=== PATIENT | male | born 1940 | race Caucasian/White ===

== ENCOUNTER 2017-11-03 08:46 | Day surgery (SDC) | payer OTHER ==
--- OUTSIDE RECORDS SUMMARY | 2017-11-03 08:49 | XMS REPORT | Clinical Summary ---
:1940 Author Organization [facility] Address [address] [place] [address] Phone Care Team Providers Name Role Phone Unavailable Primary Care Provider Unavailable Allergies No Known Allergies Current Medications Prescription Sig. Disp. Refills Start Date End Date Status carvedilol (COREG) Take 12.5 mg by Active 12.5 MG tablet mouth 2 (two) times daily with breakfast and dinner. lisinopril Take 10 mg by Active (PRINIVIL,ZESTRIL) mouth daily. 10 MG tablet SITagliptin Take 100 mg by Active (JANUVIA) 25 MG mouth daily . tablet aspirin 81 MG EC Take 81 mg by Active tablet mouth daily. glimepiride (AMARYL) Take 2 mg by Active 2 MG tablet mouth 2 (two) times daily. spironolactone Take 25 mg by Active (ALDACTONE) 25 MG mouth daily tablet Tuesday- Tuesday and tuesday . canagliflozin Take 100 mg by Active (INVOKANA) 100 mg mouth daily. tablet mesalamine (PENTASA) Take 500 mg by Active 250 mg CR mouth 4 (four) capsuleIndications: times daily Crohn's Disease Repaced by Babalazide [address] 0.4 mg Active (NITROSTAT) 0.4 MG under the SL tablet tongue every 5 (five) minutes as needed for Chest pain (chest pain) Put 1 pill under tongue every 5min as needed for chest pain.No more than 3 doses in 15min.Call 911 if pain is unrelieved 5min after 1st dose . balsalazide Take 1,500 mg Active (COLAZAL) 750 mg by mouth 2 capsule (two) times daily. colestipol Take 2 g by Active (COLESTID) 5 gram mouth 2 (two) granules times daily. allopurinol Take 1 tablet 30 tablet 11 09/14/2017 Active (ZYLOPRIM) 300 MG (300 mg total) 9 tablet by mouth daily. amiodarone Take 1 tablet 60 tablet 11 09/13/2017 Active (PACERONE) 400 MG (400 mg total) 9 tablet by mouth 2 (two) times daily. atorvastatin Take 1 tablet 30 tablet 11 09/13/2017 Active (LIPITOR) 20 MG (20 mg total) 9 tablet by mouth nightly. famotidine (PEPCID) Take 1 tablet 60 tablet 0 09/13/2017 Active 20 MG tablet (20 mg total) by mouth 2 (two) times daily. furosemide (LASIX) Take 1 tablet 60 tablet 11 09/13/2017 Active 40 MG tablet (40 mg total) 9 by mouth 2 (two) times daily. furosemide (LASIX) Take 20 mg by Discontinued 20 MG tablet mouth 2 (two) 8 times daily. isosorbide Take 1 tablet 60 tablet 11 09/13/2017 Discontinued mononitrate (10 mg total) 8 (ISMO,MONOKET) 10 MG by mouth 2 tablet (two) times daily. 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 (HCC) 09/09/2017 Orders Only General Internal Medicine after 11/02/2016 Social History Tobacco Use Types Packs/Day Years Used Date Never Smoker Smokeless Tobacco: Never Used Alcohol Use Drinks/Week oz/Week Comments No Sex Assigned at Date Recorded Not on file Last Filed Vital Signs Vital Sign Reading Time Taken Blood Pressure 109/61 09/14/2017 10:22 AM ESCALATOR MECHANIC Pulse 56 09/14/2017 7:30 AM ESCALATOR MECHANIC Temperature 36.4 C (97.6 F) 09/14/2017 7:30 AM ESCALATOR MECHANIC Respiratory Rate 18 09/14/2017 7:30 AM ESCALATOR MECHANIC Oxygen Saturation 96% 09/14/2017 7:30 AM ESCALATOR MECHANIC Inhaled Oxygen Concentration - - Weight 90.7 kg (200 lb) 09/14/2017 7:30 AM ESCALATOR MECHANIC Height 182.9 cm (6') 09/09/2017 9:43 PM ESCALATOR MECHANIC Body Mass Index 27.12 09/14/2017 7:30 AM ESCALATOR MECHANIC Plan of Treatment Not on file Procedures Procedure Name Priority Date/Time Associated Diagnosis Comments L CATH & PCI 09/12/2017 2:42 PM ESCALATOR MECHANIC chest pain after 11/02/2016 Results RHYTHM STRIP - SCAN (10/18/2017 10:53 AM)Only the most recent of2 resultswithin the time period is included.CARDIAC CATH REPORT - SCAN (09/15/2017 3:40 PM) ARRYTHMIA IMPLANT REPORT - SCAN (09/15/2017 1:40 PM)Only the most recent of2 resultswithin the time period is included.VASCULAR DIAGRAM -SCAN (09/15/2017 1: 40 PM)POC-Glucose meter (09/14/2017 7:32 AM)Only the most recent of14 resultswithin the time period is included. Component Value Ref Range POC-Glucose Meter 214 (H)Comment: TESTED AT [address] 70 - 110 mg/[place] [address] Specimen Performing Laboratory Blood [facility] [address] [address] XR chest 1 view portable / bedside (09/14/2017 4:45 AM)Only the most recent of3 resultswithin the time period is included. Specimen Performing Laboratory GE RIS Narrative FINAL REPORT Portable chest CLINICAL HISTORY: Short of breath Comparison:09/13/2017. FINDINGS:The cardiac silhouette is enlarged.The patient is status post sternotomy. A pacer device is seen. There are mild interstitial markings but no definite focal opacity, pleural effusion or pneumothorax. Degenerative changes are noted. IMPRESSION: No significant change. Signed: Gonzalo Rose MD Report Verified Date/Time:09/14/2017 09:52:44 Reading Location: [facility] Diagnostic Imaging Reading Room - [place] [address] Procedure Note Interface, External Ris In - 09/14/2017 9:54 AM ESCALATOR MECHANIC FINAL REPORT Portable chest CLINICAL HISTORY: Short of breath Comparison: 09/13/2017. FINDINGS: The cardiac silhouette is enlarged. The patient is status post sternotomy. A pacer device is seen. There are mild interstitial markings but no definite focal opacity, pleural effusion or pneumothorax. Degenerative changes are noted. IMPRESSION: No significant change. Signed: Gonzalo Rose MD Report Verified Date/Time: 09/14/2017 09:52:44 Reading Location: [facility] Diagnostic Imaging Reading Room - [place] [address] with platelet count + automated diff (09/14/2017 4:41 AM)Only the most recent of6 resultswithin the time period is included. Component Value Ref Range WBC 4.7 3.5 - 10.5 K/L RBC 4.57 (L) 4.63 - 6.08 M/L Hemoglobin 14.2 13.7 - 17.5 GM/DL Hematocrit 42.3 40.1 - 51.0 % MCV 92.6 (H) 79.0 - 92.2 fL MCH 31.1 25.7 - 32.2 pg MCHC 33.6 32.3 - 36.5 GM/DL RDW 15.3 (H) 11.6 - 14.4 % Platelets 126 (L) 150 - 450 K/CU MM MPV 10.5 9.4 - 12.4 fL nRBC 0 0 - 0 /100 WBC % Neutros 61 % % Lymphs 26 % % Monos 10 % % Eos 2 % % Baso 1 % # Neutros 2.83 1.78 - 5.38 K/L # Lymphs 1.24 (L) 1.32 - 3.57 K/L # Monos 0.48 0.30 - 0.82 K/L # Eos 0.10 0.04 - 0.54 K/L # Baso 0.03 0.01 - 0.08 K/L Immature Granulocytes-Relative 0 0 - 1 % Specimen Performing Laboratory Blood [facility] [address] [place] [address] CBC with platelet count + automated diff (09/14/2017 4:41 AM)Only the most recent of6 resultswithin the time period is included. Specimen Performing Laboratory Blood Narrative The following orders were created for panel order CBC with platelet count + automated diff. Procedure Abnormality Status --------- ------ CBC with platelet count ...[[id number]]AbnormalFinal result Please view results for these tests on the individual orders. Magnesium (09/14/2017 4:41 AM)Only the most recent of7 resultswithin the time period is included. Component Value Ref Range Magnesium 1.9 1.6 - 2.6 mg/dL Specimen Performing Laboratory Blood [address] [address] Basic metabolic panel (09/14/2017 4:41 AM)Only the most recent of7 resultswithin the time period is included. Component Value Ref Range Sodium 137 136 - 145 meq/L Potassium 4.3 3.5 - 5.1 meq/L Chloride 101 98 - 107 meq/L CO2 25 22 - 29 meq/L BUN 31 (H) 7 - 21 mg/dL Creatinine 1.13 0.57 - 1.25 mg/dL Glucose 180 (H) 70 - 105 mg/dL Calcium 9.9 8.4 - 10.2 mg/dL EGFR 63Comment: ESTIMATED GFR IS NOT ACCURATE mL/min/1.73 sq m CREATININE CLEARANCE IN PREDICTING GLOMERULAR FILTRATION RATE. ESTIMATED GFR IS NOT APPLICABLE FOR DIALYSIS PATIENTS. Specimen Performing Laboratory Blood [address] [address] ECHOCARDIOGRAM REPORT - SCAN (09/12/2017 1:20 PM)aPTT (09/11/2017 3:35 AM) Component Value Ref Range PTT 26.5 22.5 - 36.0 seconds Specimen Performing Laboratory Blood - Arm, [address] [address] Prothrombin time/INR (09/11/2017 3:35 AM) Component Value Ref Range Protime 14.4 11.7 - 14.7 seconds INR 1.1 <=5.9 Specimen Performing Laboratory Blood - Arm, Right [address] [address] Narrative RECOMMENDED COUMADIN/WARFARIN INR THERAPY RANGES STANDARD DOSE: 2.0 - 3.0 Includes: PROPHYLAXIS for venous thrombosis, systemic embolization; TREATMENT for venous thrombosis and/or pulmonary embolus. HIGH RISK: Target INR is 2.5-3.5 for patients with mechanical heart valves. Troponin I (09/10/2017 4:28 PM)Only the most recent of4 resultswithin the time period is included. Component Value Ref Range Troponin I 0.03 0.00 - 0.03 ng/mL Specimen Performing Laboratory Blood [address] [address] Narrative Troponin I (TnI) levels must be interpreted in the context of the presenting symptoms and the clinical findings. Elevated TnI levels indicate myocardial damage, but are not specific for ischemic heart disease. Elevated TnI levels are seen in patients with other cardiac conditions (including myocarditis and congestive heart failure), and slight TnI elevations occur in patients with other conditions, including sepsis, renal failure, acidosis, acute neurological disease, and persistent tachyarrhythmia. Creatine Kinase (CK), Total and MB (09/10/2017 4:28 PM)Only the most recent of4 resultswithin the time period is included. Component Value Ref Range Total CK 105 29 - 200 U/L CK-MB 2.6 0.0 - 6.6 ng/mL MB Relative Index 2.5 % Specimen Performing Laboratory Blood [address] [address] Narrative CK-MB Reference Range: <6.7Normal 6.7-10.0Borderline >10.0 Abnormal Urinalysis w/ Microscopic (09/10/2017 4:27 PM)Only the most recent of2 resultswithin the time period is included. Component Value Ref Range Color, UA Light Yellow Clarity, UA Clear Specific [place], UA 1.009 1.001 - 1.035 pH, UA 5.0 5.0 - 8.0 Protein, UA Negative Negative Glucose, UA >1000 mg/dL (A) Negative Ketones, UA Negative Negative Bilirubin, UA Negative Negative Blood, UA Negative Negative Nitrite, UA Negative Negative Leukocytes, UA Negative Negative Urobilinogen, UA 0.2 0.2 - 1.0 mg/dL RBC, UA 1 /HPF WBC, UA <1 /HPF Hyaline Casts, UA 2 /LPF Specimen Source Urine, Voided Specimen Performing Laboratory Urine - Urine, Voided [address] [address] B-type Natriuretic Factor (BNP) (09/10/2017 4:27 PM)Only the most recent of2 resultswithin the time period is included. Component Value Ref Range BNP 246 (H) 0 - 100 pg/mL Specimen Performing Laboratory Blood [address] [address] Transthoracic 2D echo w/ doppler (cw/pw/color) (09/10/2017 2:49 PM) Component Value Ref Range Ejection Fraction Specimen Performing Laboratory SLE ECHO HEARTLAB MKCKESSON CPACS Narrative Transthoracic Echocardiography Report (TTE) Demographics Patient Name TONY VERDUZCO Date of Study09/10/2017 [id number] Gender Male Visit Number [id number] Race Unknown [id number] Number [id number] Number Date of Birth1940 Referring PhysicianAnjana Schaffer Age77 year(s) SonographerLashae Keane AnalystAriadnaInterpreting Britt BasPhysiciolivia MESA Procedure Type of Study TTE procedure:2DECHO W DOPPLER(CW/PW/COLOR) (BRENDA) Indications:Sustained or non sustained Afib, SVT or VT. Clinical History CAD HTN DM VTACH HGB 14.1 HCT 43.3 % Height: 72 inches Weight: 90.72 kg (200 lbs) BSA: 2.13 m^2 BMI: 27.12 kg/m^2 HR: 63 bpm BP: 103/50 mmHg Summary The LV endocardium is adequately visualized. The left ventricle is chamber size (by vol index) is severely enlarged (male - LVED vol >100ml/m2). LV septal thickness is severely increased (>1.6cm). LV posterior wall thickness is mildly increased (1.2-1.4cm) . The following segment(s) appear severely hypokinetic: lateral, inferolateral and inferior . Global LV systolic function mildly reduced . LVEF by Morgan's method of disk assessment is mildly reduced (40-44%) . LV diastolic function is indeterminate. RV chamber size is normal . Global RV systolic function is normal . At least mild mitral regurgitation. MR severity is difficult to determine due to poor acoustic windows . Unable to estimate peak systolic PA pressure; inadequate TR velocity signal. No pericardial effusion is visualized. Signature Findings Technical Quality: Technically difficult exam. Left Ventricle The LV endocardium is adequately visualized. The left ventricle is chamber size (by vol index) is severely enlarged (male - LVED vol >100ml/m2). LV septal thickness is severely increased (>1.6cm). LV posterior wall thickness is mildly increased (1.2-1.4cm) . The following segment(s) appear severely hypokinetic: lateral, inferolateral and inferior . Global LV systolic function mildly reduced . LVEF by Morgan's method of disk assessment is mildly reduced ( 40-44%) . LV diastolic function is indeterminate. Left AtriumLA size is severely enlarged (>48 ml/m2 ) . Right VentricleRV chamber size is normal . Global RV systolic function is normal . Right Atrium RA size is normal. Atrial SeptumNormal interatrial septum by available views. Aortic Valve Mild AoV cusp thickening. Mild AoV cusp calcification. Mitral Valve Mild MV leaflet thickening. At least mild mitral regurgitation. MR severity is difficult to determine due to poor acoustic windows . The submitral apparatus appears mildly thickened . Tricuspid ValveNormal TV structure and function. Unable to estimate peak systolic PA pressure; inadequate TR velocity signal. Pulmonic Valve Normal PV structure and function. AortaAortic root size (SInus of Valsalva diameter) is mildly dilated . PericardiumNo pericardial effusion is visualized. IVC/SVC/PA/PV/PleuralThe inferior vena cava is not well visualized. The estimated RA pressure by IVC dynamics indeterminate . Chambers/Structures Left Atrium LA Dimension: 5.79 cmLA Area: 39.62 cm^2 LA Volume: 162.21 ml LA Vol. Index: 76 ml/m^2 Left Ventricle LVIDd: 6.26 cm LVIDs: 4.73 cm LV Septum Diastolic: 2.03 cm LV PW Diastolic: 1.42 cm LV FS: 24.4 % LVEDV Morgan's:231.55 ml LVESV Morgan's:132.78 mlLVEDVI: 109 ml/m^ 2 LVEF Morgan's: 42.7 % LVESVI: 62 ml/m ^2 LVOT Diameter: 2.35 cm Right Atrium RA Vol. (Sngl Plane): 42.35 ml Right Ventricle TAPSE: 1.65 cm Aorta Ao Root S of [place].: 3.57 cmAscending Aorta: 2.85 cm Doppler/Quantitative Measurements Mitral Valve MR Velocity: 5.31 m/s MR VTI: 177.42 cm MV Kevin. Peak: Tissue Doppler E' Lateral Velocity: 0.05 m/s LVOT Peak Velocity: 0.86 m/s Peak Gradient: 2.99 mmHg Mean Velocity: 0.56 m/s Mean Gradient: 1.51 mmHg LVOT Diameter: 2.35 cmLVOT VTI: 20.36 cm LVOT Area: 4.34 cm^2LVOT SV:88.26 ml LVOT CO: 5.56 l/min LVOT CI: 2.61 l/min/m^2 Procedure Note Interface, External Ris In - 09/12/2017 12:56 PM ESCALATOR MECHANIC Transthoracic Echocardiography Report (TTE) Demographics Patient Name TONY VERDUZCO Date of Study 09/10/2017 Gender Male Visit Number [id number] Race Unknown Room Number 7303 Number Date of 1940 Referring Physician Anjana Schaffer Age 77 year(s) Campaign Management Senior Manager Lashae Keane Programming Coordinator Maik Bishop Physician Procedure Type of Study TTE procedure:2DECHO W DOPPLER(CW/PW/COLOR) (BRENDA) Indications:Sustained or non sustained Afib, SVT or VT. Clinical History CAD HTN DM VTACH HGB 14.1 HCT 43.3 % Height: 72 inches Weight: 90.72 kg (200 lbs) BSA: 2.13 m^2 BMI: 27.12 kg/m^2 HR: 63 bpm BP: 103/50 mmHg Summary The LV endocardium is adequately visualized. The left ventricle is chamber size (by vol index) is severely enlarged (male - LVED vol >100ml/m2). LV septal thickness is severely increased (>1.6cm). LV posterior wall thickness is mildly increased (1.2-1.4cm) . The following segment(s) appear severely hypokinetic: lateral, inferolateral and inferior . Global LV systolic function mildly reduced . LVEF by Morgan's method of disk assessment is mildly reduced (40-44%) . LV diastolic function is indeterminate. RV chamber size is normal . Global RV systolic function is normal . At least mild mitral regurgitation. MR severity is difficult to determine due to poor acoustic windows . Unable to estimate peak systolic PA pressure; inadequate TR velocity signal. No pericardial effusion is visualized. Signature Findings Technical Quality: Technically difficult exam. Left Ventricle The LV endocardium is adequately visualized. The left ventricle is chamber size (by vol index) is severely enlarged (male - LVED vol >100ml/m2). LV septal thickness is severely increased (>1.6cm). LV posterior wall thickness is mildly increased (1.2-1.4cm) . The following segment(s) appear severely hypokinetic: lateral, inferolateral and inferior . Global LV systolic function mildly reduced . LVEF by Morgan's method of disk assessment is mildly reduced (40-44%) . LV diastolic function is indeterminate. Left Atrium LA size is severely enlarged (>48 ml/m2) . Right Ventricle RV chamber size is normal . Global RV systolic function is normal . Right Atrium RA size is normal. Atrial Septum Normal interatrial septum by available views. Aortic Valve Mild AoV cusp thickening. Mild AoV cusp calcification. Mitral Valve Mild MV leaflet thickening. At least mild mitral regurgitation. MR severity is difficult to determine due to poor acoustic windows . The submitral apparatus appears mildly thickened . Tricuspid Valve Normal TV structure and function. Unable to estimate peak systolic PA pressure; inadequate TR velocity signal. Pulmonic Valve Normal PV structure and function. Aorta Aortic root size (SInus of Valsalva diameter) is mildly dilated . Pericardium No pericardial effusion is visualized. IVC/SVC/PA/PV/Pleural The inferior vena cava is not well visualized. The estimated RA pressure by IVC dynamics indeterminate . Chambers/Structures Left Atrium LA Dimension: 5.79 cm LA Area: 39.62 cm^2 LA Volume: 162.21 ml LA Vol. Index: 76 ml/m^2 Left Ventricle LVIDd: 6.26 cm LVIDs: 4.73 cm LV Septum Diastolic: 2.03 cm LV PW Diastolic: 1.42 cm LV FS: 24.4 % LVEDV Morgan's:231.55 ml LVESV Morgan's:132.78 ml LVEDVI: 109 ml/m^2 LVEF Morgan's: 42.7 % LVESVI: 62 ml/m^2 LVOT Diameter: 2.35 cm Right Atrium RA Vol. (Sngl Plane): 42.35 ml Right Ventricle TAPSE: 1.65 cm Aorta Ao Root S of [place].: 3.57 cm Ascending Aorta: 2.85 cm Doppler/Quantitative Measurements Mitral Valve MR Velocity: 5.31 m/s MR VTI: 177.42 cm MV Kevin. Peak: Tissue Doppler E' Lateral Velocity: 0.05 m/s LVOT Peak Velocity: 0.86 m/s Peak Gradient: 2.99 mmHg Mean Velocity: 0.56 m/s Mean Gradient: 1.51 mmHg LVOT Diameter: 2.35 cm LVOT VTI: 20.36 cm LVOT Area: 4.34 cm^2 LVOT SV:88.26 ml LVOT CO: 5.56 l/min LVOT CI: 2.61 l/min/m^2 Hepatic function panel (09/10/2017 1:11 AM) Component Value Ref Range Protein, Total 6.3 6.0 - 8.3 gm/dL Albumin 3.9 3.5 - 5.0 g/dL Total Bilirubin 0.3 0.2 - 1.2 mg/dL Bilirubin, Direct 0.2 0.1 - 0.5 mg/dL Alkaline Phosphatase 51 40 - 150 U/L AST 17 5 - 34 U/L ALT 13 6 - 55 U/L Specimen Performing [place] [address] ED ECG Interpretation (09/09/2017 11:22 PM) Anjana Bell MD 09/09/2017 11:22 PM ECG/EKG Interpretation Date/Time: 09/09/2017 10:34 PM Performed by: ANJANA SCHAFFER Authorized by: ANJANA SCHAFFER The ECG was interpreted by ED physician. This ECG was compared with previous ECG(s).The ECG is interpreted as sinus bradycardia. Rate is bradycardic. Heart rate is 59 BPM. Abnormal conduction noted: right bundle branch block. ST segments abnormal. ST elevation in lead(s) aVR. T waves abnormal. [place] is right. Q-waves are present in lead(s) I, II, III and aVF. Clinical Impression: abnormal ECGECG reviewed and does not meet STEMI criteria. ECG 12 lead (09/09/2017 10:32 PM)Only the most recent of2 resultswithin the time period is included. Specimen Performing Laboratory [facility]USE Narrative Ventricular Rate 59 BPM Atrial Rate 59 BPM P-R Interval 174 ms QRS Duration 160 ms Q-T Interval 504 ms QTC Calculation(Bazett) 498 ms P [place] 11 degrees R [place] -20 degrees T [place] -3 degrees Sinus bradycardia Right bundle branch block Left ventricular hypertrophy with QRS widening Inferior infarct , age undetermined Anterolateral infarct , age undetermined Abnormal ECG No previous ECGs available Confirmed by MD SIAURA, JONAH Barron ([id number]) on 09/11/2017 7:34:21 AM Procedure Note Interface, External Ris In - 09/11/2017 7:34 AM ESCALATOR MECHANIC Ventricular Rate 59 BPM Atrial Rate 59 BPM P-R Interval 174 ms QRS Duration 160 ms Q-T Interval 504 ms QTC Calculation(Bazett) 498 ms P [place] 11 degrees R [place] -20 degrees T [place] -3 degrees Sinus bradycardia Right bundle branch block Left ventricular hypertrophy with QRS widening Inferior infarct , age undetermined Anterolateral infarct , age undetermined Abnormal ECG No previous ECGs available Confirmed by MD ISAURA, JONAH Barron ([id number]) on 09/11/2017 7:34:21 AM after 11/02/2016
--- OUTSIDE RECORDS SUMMARY | 2017-11-03 08:49 | XMS REPORT ---
:1940 Author Organization [facility] Address [address] [place] [address] Dr. Sanderson [address] [place] [id number] Care Team Providers Name Role Phone ZHENG BOSWELL Unavailable Unavailable Problems This patient has no known problems. Allergies, Adverse Reactions, Alerts This patient has no known allergies or adverse reactions. Medications This patient has no known medications. Results Test Description Test Time Test Comments Text Results Atomic Results Result Comments RAD, CHEST, 1 2017-09-14 09:52:00 Reason for FINAL REPORT PATIENT VIEW, NON DEPT exam:->SOBShould this be ID: [id number] performed at the Portable chest bedside?->Yes CLINICAL HISTORY: Short of breath Comparison: 09/13/2017. FINDINGS: The cardiac silhouette is enlarged. The patient is status post sternotomy. A pacer device is seen. There are mild interstitial markings but no definite focal opacity, pleural effusion or pneumothorax. Degenerative changes are noted. IMPRESSION: No significant change. Signed: Gonzalo Rose Verified Date/Time: 09/14/2017 09:52:44 Reading Location: [facility] Diagnostic Imaging Reading Room - [place] [address] -GLUCOSE METER 2017-09-14 07:56:00 Test Item Value Reference Range Comments POC-GLUCOSE METER (BEAKER) (test 214 mg/dL 70-110 TESTED AT [address] yunf=9558) [facility] [address] POCT-GLUCOSE [id number] 07:17:00 Test Item Value Reference Range Comments POC-GLUCOSE METER (BEAKER) 184 mg/dL 70-110 TESTED AT [address] (test nudu=8311) [facility] [address] [id number] 05:37:00 Test Item Value Reference Range Comments MAGNESIUM (BEAKER) (test weda=807) 1.9 mg/dL 1.6-2.6 BASIC METABOLIC [id number] 05:37:00 Test Item Value Reference Range Comments SODIUM (BEAKER) (test 137 meq/L 136-145 flzh=691) POTASSIUM (BEAKER) (test 4.3 meq/L 3.5-5.1 mcpl=494) CHLORIDE (BEAKER) (test 101 meq/L 98-107 zzno=189) CO2 (BEAKER) (test 25 meq/L 22-29 pvjp=176) BLOOD UREA NITROGEN 31 mg/dL 7-21 (BEAKER) (test nwtn=365) CREATININE (BEAKER) (test 1.13 mg/dL 0.57-1.25 webb=334) GLUCOSE RANDOM (BEAKER) 180 mg/dL 70-105 (test avrf=292) CALCIUM (BEAKER) (test 9.9 mg/dL 8.4-10.2 qnje=754) EGFR (BEAKER) (test 63 mL/min/1.73 sq m ESTIMATED GFR IS NOT zjdp=7896) ACCURATE CREATININE CLEARANCE IN PREDICTING GLOMERULAR FILTRATION RATE. ESTIMATED GFR IS NOT APPLICABLE FOR DIALYSIS PATIENTS. CBC W/PLT COUNT & AUTO [id number] 05:07:00 Test Item Value Reference Range Comments WHITE BLOOD CELL COUNT (BEAKER) (test oxtb=647) 4.7 K/ L 3.5-10.5 RED BLOOD CELL COUNT (BEAKER) (test jkrd=587) 4.57 M/ L 4.63-6.08 HEMOGLOBIN (BEAKER) (test kvpr=011) 14.2 GM/DL 13.7-17.5 HEMATOCRIT (BEAKER) (test pebp=027) 42.3 % 40.1-51.0 MEAN CORPUSCULAR VOLUME (BEAKER) (test kgse=668) 92.6 fL 79.0-92.2 MEAN CORPUSCULAR HEMOGLOBIN (BEAKER) (test 31.1 pg 25.7-32.2 pmds=652) MEAN CORPUSCULAR HEMOGLOBIN CONC (BEAKER) (test 33.6 GM/DL 32.3-36.5 osoe=997) RED CELL DISTRIBUTION WIDTH (BEAKER) (test 15.3 % 11.6-14.4 yyzi=454) PLATELET COUNT (BEAKER) (test ldhp=107) 126 K/CU MM 150-450 MEAN PLATELET VOLUME (BEAKER) (test hqmy=687) 10.5 fL 9.4-12.4 NUCLEATED RED BLOOD CELLS (BEAKER) (test 0 /100 WBC 0-0 foyw=752) NEUTROPHILS RELATIVE PERCENT (BEAKER) (test 61 % ecjx=384) LYMPHOCYTES RELATIVE PERCENT (BEAKER) (test 26 % futh=527) MONOCYTES RELATIVE PERCENT (BEAKER) (test 10 % dgcx=738) EOSINOPHILS RELATIVE PERCENT (BEAKER) (test 2 % nctf=676) BASOPHILS RELATIVE PERCENT (BEAKER) (test 1 % wfrk=359) NEUTROPHILS ABSOLUTE COUNT (BEAKER) (test 2.83 K/ L 1.78-5.38 sxrn=642) LYMPHOCYTES ABSOLUTE COUNT (BEAKER) (test 1.24 K/ L 1.32-3.57 iybr=216) MONOCYTES ABSOLUTE COUNT (BEAKER) (test 0.48 K/ L 0.30-0.82 vxgv=818) EOSINOPHILS ABSOLUTE COUNT (BEAKER) (test 0.10 K/ L 0.04-0.54 ffbn=184) BASOPHILS ABSOLUTE COUNT (BEAKER) (test 0.03 K/ L 0.01-0.08 mxib=542) IMMATURE GRANULOCYTES-RELATIVE PERCENT (BEAKER) 0 % 0-1 (test zrln=1973) POCT-GLUCOSE [id number] 18:32:00 Test Item Value Reference Range Comments POC-GLUCOSE METER (BEAKER) 230 mg/dL 70-110 TESTED AT [address] (test dhnp=5155) [place] [id number] POCT-GLUCOSE [id number] 16:39:00 Test Item Value Reference Range Comments POC-GLUCOSE METER (BEAKER) 254 mg/dL 70-110 TESTED AT [address] (test rlyr=7823) [facility] [address] POCT-GLUCOSE [id number] 12:51:00 Test Item Value Reference Range Comments POC-GLUCOSE METER (BEAKER) 326 mg/dL 70-110 TESTED AT [address] (test mfsk=1965) [facility] [address] RAD, CHEST, 1 VIEW, NON [id number] 09:57:00Reason for exam:->SOBShould this be performed at the bedside?->YesFINAL REPORT CLINICAL HISTORY: SOB TECHNIQUE: 1 view of the chest. COMPARISON: 09/09/2017 IMPRESSION: There are no focal infiltrates or effusions. The cardiomediastinal silhouetteis magnified by technique with sternotomy wires and a pacemaker. Signed: Daniel Lanza MDReport Verified Date/Time: 09/13/2017 09:57:46 Reading Location: [facility] Radiology Reading Room [id number] 04:43:00 Test Item Value Reference Range Comments MAGNESIUM (BEAKER) (test ryhg=519) 2.2 mg/dL 1.6-2.6 BASIC METABOLIC [id number] 04:43:00 Test Item Value Reference Range Comments SODIUM (BEAKER) (test 138 meq/L 136-145 kqny=878) POTASSIUM (BEAKER) (test 4.2 meq/L 3.5-5.1 pbgr=691) CHLORIDE (BEAKER) (test 102 meq/L 98-107 gncx=522) CO2 (BEAKER) (test 27 meq/L 22-29 cdpo=910) BLOOD UREA NITROGEN 25 mg/dL 7-21 (BEAKER) (test ydmg=191) CREATININE (BEAKER) (test 1.08 mg/dL 0.57-1.25 fmaq=189) GLUCOSE RANDOM (BEAKER) 169 mg/dL 70-105 (test hhvp=536) CALCIUM (BEAKER) (test 9.9 mg/dL 8.4-10.2 lnvr=076) EGFR (BEAKER) (test 66 mL/min/1.73 sq m ESTIMATED GFR IS NOT bcgl=3954) ACCURATE CREATININE CLEARANCE IN PREDICTING GLOMERULAR FILTRATION RATE. ESTIMATED GFR IS NOT APPLICABLE FOR DIALYSIS PATIENTS. CBC W/PLT COUNT & AUTO [id number] 04:23:00 Test Item Value Reference Range Comments WHITE BLOOD CELL COUNT (BEAKER) (test oyfm=421) 5.6 K/ L 3.5-10.5 RED BLOOD CELL COUNT (BEAKER) (test jamr=294) 4.81 M/ L 4.63-6.08 HEMOGLOBIN (BEAKER) (test zass=058) 14.9 GM/DL 13.7-17.5 HEMATOCRIT (BEAKER) (test lobu=126) 44.9 % 40.1-51.0 MEAN CORPUSCULAR VOLUME (BEAKER) (test xayk=939) 93.3 fL 79.0-92.2 MEAN CORPUSCULAR HEMOGLOBIN (BEAKER) (test 31.0 pg 25.7-32.2 yfzj=205) MEAN CORPUSCULAR HEMOGLOBIN CONC (BEAKER) (test 33.2 GM/DL 32.3-36.5 rkui=672) RED CELL DISTRIBUTION WIDTH (BEAKER) (test 15.3 % 11.6-14.4 jdcj=247) PLATELET COUNT (BEAKER) (test flet=704) 144 K/CU MM 150-450 MEAN PLATELET VOLUME (BEAKER) (test uehh=434) 10.7 fL 9.4-12.4 NUCLEATED RED BLOOD CELLS (BEAKER) (test 0 /100 WBC 0-0 jsaa=681) NEUTROPHILS RELATIVE PERCENT (BEAKER) (test 65 % adtb=055) LYMPHOCYTES RELATIVE PERCENT (BEAKER) (test 22 % gois=189) MONOCYTES RELATIVE PERCENT (BEAKER) (test 11 % gbcy=967) EOSINOPHILS RELATIVE PERCENT (BEAKER) (test 2 % joed=805) BASOPHILS RELATIVE PERCENT (BEAKER) (test 1 % qtvy=602) NEUTROPHILS ABSOLUTE COUNT (BEAKER) (test 3.63 K/ L 1.78-5.38 kyon=289) LYMPHOCYTES ABSOLUTE COUNT (BEAKER) (test 1.24 K/ L 1.32-3.57 hfgi=852) MONOCYTES ABSOLUTE COUNT (BEAKER) (test 0.61 K/ L 0.30-0.82 jdff=912) EOSINOPHILS ABSOLUTE COUNT (BEAKER) (test 0.10 K/ L 0.04-0.54 tilm=556) BASOPHILS ABSOLUTE COUNT (BEAKER) (test 0.03 K/ L 0.01-0.08 vuxr=618) IMMATURE GRANULOCYTES-RELATIVE PERCENT (BEAKER) 0 % 0-1 (test hwhp=2405) POCT-GLUCOSE [id number] 22:01:00 Test Item Value Reference Range Comments POC-GLUCOSE METER (BEAKER) 141 mg/dL 70-[address] [facility] [address] [facility] (test htqv=2846) [facility] [address] POCT-GLUCOSE [id number] 14:30:00 Test Item Value Reference Range Comments POC-GLUCOSE METER (BEAKER) 133 mg/dL 70-110 TESTED AT [place] [id number] [facility] (test tqah=4375) [facility] [address] POCT-GLUCOSE [id number] 08:06:00 Test Item Value Reference Range Comments POC-GLUCOSE METER (BEAKER) 175 mg/dL 70-110 TESTED AT [place] [id number] [facility] (test jrsv=5675) [facility] [address] [id number] 06:06:00 Test Item Value Reference Range Comments MAGNESIUM (BEAKER) (test 2.1 mg/dL 1.6-2.6 Specimen slightly hemolyzed pgin=553) BASIC METABOLIC [id number] 06:06:00 Test Item Value Reference Range Comments SODIUM (BEAKER) (test 135 meq/L 136-145 ajou=814) POTASSIUM (BEAKER) (test 4.3 meq/L 3.5-5.1 Specimen slightly iciy=221) hemolyzed CHLORIDE (BEAKER) (test 103 meq/L 98-107 pfhh=016) CO2 (BEAKER) (test 22 meq/L 22-29 nldi=509) BLOOD UREA NITROGEN 33 mg/dL 7-21 (BEAKER) (test inyq=367) CREATININE (BEAKER) (test 1.11 mg/dL 0.57-1.25 Specimen slightly huwq=185) hemolyzed GLUCOSE RANDOM (BEAKER) 156 mg/dL 70-105 (test pkpf=702) CALCIUM (BEAKER) (test 9.9 mg/dL 8.4-10.2 vjxn=003) EGFR (BEAKER) (test 64 mL/min/1.73 sq m ESTIMATED GFR IS NOT hpde=0522) ACCURATE CREATININE CLEARANCE IN PREDICTING GLOMERULAR FILTRATION RATE. ESTIMATED GFR IS NOT APPLICABLE FOR DIALYSIS PATIENTS. CBC W/PLT COUNT & AUTO [id number] 05:05:00 Test Item Value Reference Range Comments WHITE BLOOD CELL COUNT (BEAKER) (test ijzq=428) 5.2 K/ L 3.5-10.5 RED BLOOD CELL COUNT (BEAKER) (test ifwy=761) 4.65 M/ L 4.63-6.08 HEMOGLOBIN (BEAKER) (test ldua=459) 14.3 GM/DL 13.7-17.5 HEMATOCRIT (BEAKER) (test mxzq=628) 43.2 % 40.1-51.0 MEAN CORPUSCULAR VOLUME (BEAKER) (test zvhr=127) 92.9 fL 79.0-92.2 MEAN CORPUSCULAR HEMOGLOBIN (BEAKER) (test 30.8 pg 25.7-32.2 cyob=397) MEAN CORPUSCULAR HEMOGLOBIN CONC (BEAKER) (test 33.1 GM/DL 32.3-36.5 mdvr=336) RED CELL DISTRIBUTION WIDTH (BEAKER) (test 15.7 % 11.6-14.4 ezlp=936) PLATELET COUNT (BEAKER) (test enfn=607) 132 K/CU MM 150-450 MEAN PLATELET VOLUME (BEAKER) (test aich=223) 10.4 fL 9.4-12.4 NUCLEATED RED BLOOD CELLS (BEAKER) (test 0 /100 WBC 0-0 jmch=051) NEUTROPHILS RELATIVE PERCENT (BEAKER) (test 64 % tcko=092) LYMPHOCYTES RELATIVE PERCENT (BEAKER) (test 24 % qhim=772) MONOCYTES RELATIVE PERCENT (BEAKER) (test 10 % xiry=857) EOSINOPHILS RELATIVE PERCENT (BEAKER) (test 1 % slau=629) BASOPHILS RELATIVE PERCENT (BEAKER) (test 1 % pewt=385) NEUTROPHILS ABSOLUTE COUNT (BEAKER) (test 3.31 K/ L 1.78-5.38 cqtl=059) LYMPHOCYTES ABSOLUTE COUNT (BEAKER) (test 1.24 K/ L 1.32-3.57 oflh=180) MONOCYTES ABSOLUTE COUNT (BEAKER) (test 0.49 K/ L 0.30-0.82 rvxp=118) EOSINOPHILS ABSOLUTE COUNT (BEAKER) (test 0.07 K/ L 0.04-0.54 walm=657) BASOPHILS ABSOLUTE COUNT (BEAKER) (test 0.04 K/ L 0.01-0.08 dqdw=551) IMMATURE GRANULOCYTES-RELATIVE PERCENT (BEAKER) 0 % 0-1 (test gwib=9012) [id number] 23:26:00 Test Item Value Reference Range Comments MAGNESIUM (BEAKER) (test dqdw=977) 2.1 mg/dL 1.6-2.6 BASIC METABOLIC [id number] 23:26:00 Test Item Value Reference Range Comments SODIUM (BEAKER) (test 136 meq/L 136-145 dfuj=817) POTASSIUM (BEAKER) (test 4.3 meq/L 3.5-5.1 blyu=577) CHLORIDE (BEAKER) (test 101 meq/L 98-107 oqly=616) CO2 (BEAKER) (test 25 meq/L 22-29 qbke=060) BLOOD UREA NITROGEN 36 mg/dL 7-21 (BEAKER) (test oodt=574) CREATININE (BEAKER) (test 1.14 mg/dL 0.57-1.25 zotj=577) GLUCOSE RANDOM (BEAKER) 148 mg/dL 70-105 (test pxhh=010) CALCIUM (BEAKER) (test 10.3 mg/dL 8.4-10.2 nbdu=397) EGFR (BEAKER) (test 62 mL/min/1.73 sq m ESTIMATED GFR IS NOT tknu=4538) ACCURATE CREATININE CLEARANCE IN PREDICTING GLOMERULAR FILTRATION RATE. ESTIMATED GFR IS NOT APPLICABLE FOR DIALYSIS PATIENTS. POCT-GLUCOSE [id number] 23:05:00 Test Item Value Reference Range Comments POC-GLUCOSE METER (BEAKER) 169 mg/dL 70-110 TESTED AT [address] (test kdms=4528) [place] [address] POCT-GLUCOSE [id number] 17:13:00 Test Item Value Reference Range Comments POC-GLUCOSE METER (BEAKER) 243 mg/dL 70-110 TESTED AT [address] (test oibt=6241) [place] [address] POCT-GLUCOSE [id number] 11:56:00 Test Item Value Reference Range Comments POC-GLUCOSE METER (BEAKER) 182 mg/dL 70-110 TESTED AT [address] (test ptbz=3356) [place] [id number] POCT-GLUCOSE [id number] 07:56:00 Test Item Value Reference Range Comments POC-GLUCOSE METER (BEAKER) 197 mg/dL 70-110 TESTED AT [address] (test qoto=8549) [place] [id number] [id number] 04:48:00 Test Item Value Reference Range Comments MAGNESIUM (BEAKER) (test fjne=357) 2.2 mg/dL 1.6-2.6 BASIC METABOLIC [id number] 04:48:00 Test Item Value Reference Range Comments SODIUM (BEAKER) (test 137 meq/L 136-145 bnxm=181) POTASSIUM (BEAKER) (test 4.4 meq/L 3.5-5.1 qlil=240) CHLORIDE (BEAKER) (test 106 meq/L 98-107 awen=953) CO2 (BEAKER) (test 23 meq/L 22-29 zihb=512) BLOOD UREA NITROGEN 34 mg/dL 7-21 (BEAKER) (test nwvr=177) CREATININE (BEAKER) (test 1.14 mg/dL 0.57-1.25 dhgm=825) GLUCOSE RANDOM (BEAKER) 160 mg/dL 70-105 (test rsak=328) CALCIUM (BEAKER) (test 9.8 mg/dL 8.4-10.2 dsly=650) EGFR (BEAKER) (test 62 mL/min/1.73 sq m ESTIMATED GFR IS NOT wgua=9116) ACCURATE CREATININE CLEARANCE IN PREDICTING GLOMERULAR FILTRATION RATE. ESTIMATED GFR IS NOT APPLICABLE FOR DIALYSIS PATIENTS. [id number] 04:29:00 Test Item Value Reference Range Comments PARTIAL THROMBOPLASTIN TIME (BEAKER) (test 26.5 seconds 22.5-36.0 gpnr=208) PROTHROMBIN TIME/[id number] 04:28:00 Test Item Value Reference Range Comments PROTIME (BEAKER) (test equo=568) 14.4 seconds 11.7-14.7 INR (BEAKER) (test uaxe=249) 1.1 <=5.9 RECOMMENDED COUMADIN/WARFARIN INR THERAPY RANGESSTANDARD DOSE: 2.0 - 3.0 Includes: PROPHYLAXIS forvenous thrombosis, systemic embolization; TREATMENT for venous thrombosis and/or pulmonary embolus.HIGH RISK: Target INR is 2.5-3.5 for patients with mechanical heart valves.CBC W/PLT COUNT & AUTO [id number] 04:05:00 Test Item Value Reference Range Comments WHITE BLOOD CELL COUNT (BEAKER) (test hoad=384) 5.2 K/ L 3.5-10.5 RED BLOOD CELL COUNT (BEAKER) (test pnvr=779) 4.65 M/ L 4.63-6.08 HEMOGLOBIN (BEAKER) (test bctu=802) 14.2 GM/DL 13.7-17.5 HEMATOCRIT (BEAKER) (test dewu=388) 43.2 % 40.1-51.0 MEAN CORPUSCULAR VOLUME (BEAKER) (test kuhp=932) 92.9 fL 79.0-92.2 MEAN CORPUSCULAR HEMOGLOBIN (BEAKER) (test 30.5 pg 25.7-32.2 xopq=902) MEAN CORPUSCULAR HEMOGLOBIN CONC (BEAKER) (test 32.9 GM/DL 32.3-36.5 cqlu=761) RED CELL DISTRIBUTION WIDTH (BEAKER) (test 15.8 % 11.6-14.4 jmdl=747) PLATELET COUNT (BEAKER) (test ytuf=783) 141 K/CU MM 150-450 MEAN PLATELET VOLUME (BEAKER) (test dhil=959) 10.7 fL 9.4-12.4 NUCLEATED RED BLOOD CELLS (BEAKER) (test 0 /100 WBC 0-0 xime=602) NEUTROPHILS RELATIVE PERCENT (BEAKER) (test 64 % cssr=338) LYMPHOCYTES RELATIVE PERCENT (BEAKER) (test 24 % mert=049) MONOCYTES RELATIVE PERCENT (BEAKER) (test 9 % fsfj=542) EOSINOPHILS RELATIVE PERCENT (BEAKER) (test 2 % ziuw=827) BASOPHILS RELATIVE PERCENT (BEAKER) (test 0 % zsya=348) NEUTROPHILS ABSOLUTE COUNT (BEAKER) (test 3.33 K/ L 1.78-5.38 rsce=166) LYMPHOCYTES ABSOLUTE COUNT (BEAKER) (test 1.25 K/ L 1.32-3.57 vnpc=304) MONOCYTES ABSOLUTE COUNT (BEAKER) (test 0.48 K/ L 0.30-0.82 vipq=279) EOSINOPHILS ABSOLUTE COUNT (BEAKER) (test 0.08 K/ L 0.04-0.54 nify=918) BASOPHILS ABSOLUTE COUNT (BEAKER) (test 0.02 K/ L 0.01-0.08 rcnf=234) IMMATURE GRANULOCYTES-RELATIVE PERCENT (BEAKER) 0 % 0-1 (test ncmy=7782) POCT-GLUCOSE [id number] 21:23:00 Test Item Value Reference Range Comments POC-GLUCOSE METER (BEAKER) 173 mg/dL 70-[address] [facility] [address] [facility] (test wzzs=4081) [facility] [address] URINALYSIS W/ [id number] 17:46:00 Test Item Value Reference Range Comments COLOR (BEAKER) (test vtba=207) Light Yellow CLARITY (BEAKER) (test ddrk=339) Clear SPECIFIC GRAVITY UA (BEAKER) (test jvpo=638) 1.009 1.001-1.035 PH UA (BEAKER) (test rysq=439) 5.0 5.0-8.0 PROTEIN UA (BEAKER) (test nkdw=028) Negative Negative GLUCOSE UA (BEAKER) (test ucsq=464) >1000 mg/dL Negative KETONES UA (BEAKER) (test qkqf=243) Negative Negative BILIRUBIN UA (BEAKER) (test biqp=496) Negative Negative BLOOD UA (BEAKER) (test gbov=139) Negative Negative NITRITE UA (BEAKER) (test togh=163) Negative Negative LEUKOCYTE ESTERASE UA (BEAKER) (test Negative Negative qgiz=462) UROBILINOGEN UA (BEAKER) (test bymb=217) 0.2 mg/dL 0.2-1.0 RBC UA (BEAKER) (test gcni=802) 1 /HPF WBC UA (BEAKER) (test ukuf=531) < /HPF HYALINE CASTS (BEAKER) (test komc=691) 2 /LPF SOURCE(BEAKER) (test shyd=6965) Urine, Voided B-TYPE NATRIURETIC FACTOR (BNP)2017-09-10 17:39:00 Test Item Value Reference Range Comments B-TYPE NATRIURETIC PEPTIDE (BEAKER) (test 246 pg/mL 0-100 hbpg=167) CREATINE KINASE (CK), TOTAL AND [id number] 17:37:00 Test Item Value Reference Range Comments CREATINE KINASE TOTAL (BEAKER) (test vuxv=895) 105 U/L 29-200 CREATINE KINASE-MB (BEAKER) (test ximf=786) 2.6 ng/mL 0.0-6.6 CREATINE KINASE-MB INDEX (BEAKER) (test qfle=361) 2.5 % CK-MB Reference Range:<6.7 Normal6.7-10.0 Borderline>10.0 AbnormalTROPONIN [id number] 17:37:00 Test Item Value Reference Range Comments TROPONIN I (BEAKER) (test bzhi=814) 0.03 ng/mL 0.00-0.03 Troponin I (TnI) levels must be interpreted [...] failure, acidosis, acute neurological disease, and persistent tachyarrhythmia.POCT-GLUCOSE [id number] 16:57:00 Test Item Value Reference Range Comments POC-GLUCOSE METER (BEAKER) 144 mg/dL 70-[address] [facility] [address] [facility] (test uzbd=5366) [facility] [address] CREATINE KINASE (CK), TOTAL AND [id number] 08:52:00 Test Item Value Reference Range Comments CREATINE KINASE TOTAL (BEAKER) (test jxdu=831) 126 U/L 29-200 CREATINE KINASE-MB (BEAKER) (test kzsr=089) 2.9 ng/mL 0.0-6.6 CREATINE KINASE-MB INDEX (BEAKER) (test hens=147) 2.3 % CK-MB Reference Range:<6.7 Normal6.7-10.0 Borderline>10.0 AbnormalTROPONIN [id number] 08:52:00 Test Item Value Reference Range Comments TROPONIN I (BEAKER) (test bceb=466) 0.03 ng/mL 0.00-0.03 Troponin I (TnI) levels must be interpreted [...] failure, acidosis, acute neurological disease, and persistent tachyarrhythmia.[id number] 05:36:00 Test Item Value Reference Range Comments MAGNESIUM (BEAKER) (test 2.2 mg/dL 1.6-2.6 Specimen slightly hemolyzed tqts=099) BASIC METABOLIC [id number] 05:36:00 Test Item Value Reference Range Comments SODIUM (BEAKER) (test 140 meq/L 136-145 maab=384) POTASSIUM (BEAKER) (test 4.2 meq/L 3.5-5.1 Specimen slightly yvxa=906) hemolyzed CHLORIDE (BEAKER) (test 108 meq/L 98-107 uzpo=599) CO2 (BEAKER) (test 21 meq/L 22-29 unna=962) BLOOD UREA NITROGEN 30 mg/dL 7-21 (BEAKER) (test hrfc=775) CREATININE (BEAKER) (test 1.03 mg/dL 0.57-1.25 Specimen slightly vegd=633) hemolyzed GLUCOSE RANDOM (BEAKER) 122 mg/dL 70-105 (test vtli=648) CALCIUM (BEAKER) (test 9.3 mg/dL 8.4-10.2 qelg=981) EGFR (BEAKER) (test 70 mL/min/1.73 sq m ESTIMATED GFR IS NOT uovs=4882) ACCURATE CREATININE CLEARANCE IN PREDICTING GLOMERULAR FILTRATION RATE. ESTIMATED GFR IS NOT APPLICABLE FOR DIALYSIS PATIENTS. CBC W/PLT COUNT & AUTO [id number] 05:15:00 Test Item Value Reference Range Comments WHITE BLOOD CELL COUNT (BEAKER) (test eiwl=313) 5.1 K/ L 3.5-10.5 RED BLOOD CELL COUNT (BEAKER) (test gkwr=366) 4.62 M/ L 4.63-6.08 HEMOGLOBIN (BEAKER) (test hknf=354) 14.1 GM/DL 13.7-17.5 HEMATOCRIT (BEAKER) (test mnqp=507) 43.3 % 40.1-51.0 MEAN CORPUSCULAR VOLUME (BEAKER) (test rcbw=327) 93.7 fL 79.0-92.2 MEAN CORPUSCULAR HEMOGLOBIN (BEAKER) (test 30.5 pg 25.7-32.2 uknq=962) MEAN CORPUSCULAR HEMOGLOBIN CONC (BEAKER) (test 32.6 GM/DL 32.3-36.5 fixo=321) RED CELL DISTRIBUTION WIDTH (BEAKER) (test 15.9 % 11.6-14.4 feqp=516) PLATELET COUNT (BEAKER) (test huyw=307) 138 K/CU MM 150-450 MEAN PLATELET VOLUME (BEAKER) (test bnzf=098) 10.6 fL 9.4-12.4 NUCLEATED RED BLOOD CELLS (BEAKER) (test 0 /100 WBC 0-0 czzf=654) NEUTROPHILS RELATIVE PERCENT (BEAKER) (test 59 % xjfk=048) LYMPHOCYTES RELATIVE PERCENT (BEAKER) (test 27 % xuwr=222) MONOCYTES RELATIVE PERCENT (BEAKER) (test 11 % hucn=605) EOSINOPHILS RELATIVE PERCENT (BEAKER) (test 1 % afhr=029) BASOPHILS RELATIVE PERCENT (BEAKER) (test 1 % opqw=474) NEUTROPHILS ABSOLUTE COUNT (BEAKER) (test 3.02 K/ L 1.78-5.38 ysbq=726) LYMPHOCYTES ABSOLUTE COUNT (BEAKER) (test 1.39 K/ L 1.32-3.57 gxyf=455) MONOCYTES ABSOLUTE COUNT (BEAKER) (test 0.56 K/ L 0.30-0.82 ukhb=085) EOSINOPHILS ABSOLUTE COUNT (BEAKER) (test 0.07 K/ L 0.04-0.54 mjbs=119) BASOPHILS ABSOLUTE COUNT (BEAKER) (test 0.03 K/ L 0.01-0.08 sghq=049) IMMATURE GRANULOCYTES-RELATIVE PERCENT (BEAKER) 0 % 0-1 (test jphe=5690) URINALYSIS W/ [id number] 02:45:00 Test Item Value Reference Range Comments COLOR (BEAKER) (test oyfy=808) Light Yellow CLARITY (BEAKER) (test ptfk=913) Clear SPECIFIC GRAVITY UA (BEAKER) (test idwc=486) 1.023 1.001-1.035 PH UA (BEAKER) (test xwcx=857) 5.0 5.0-8.0 PROTEIN UA (BEAKER) (test fotv=782) Negative Negative GLUCOSE UA (BEAKER) (test grkk=426) >1000 mg/dL Negative KETONES UA (BEAKER) (test wtts=811) Negative Negative BILIRUBIN UA (BEAKER) (test bsod=391) Negative Negative BLOOD UA (BEAKER) (test pnxp=737) Negative Negative NITRITE UA (BEAKER) (test rjcw=837) Negative Negative LEUKOCYTE ESTERASE UA (BEAKER) (test Negative Negative aurz=094) UROBILINOGEN UA (BEAKER) (test auzc=628) 0.2 mg/dL 0.2-1.0 RBC UA (BEAKER) (test xxzj=904) < /HPF WBC UA (BEAKER) (test layw=010) < /HPF MUCUS (BEAKER) (test oawo=3915) Rare HYALINE CASTS (BEAKER) (test atli=514) 2 /LPF AMORPHOUS CRYSTALS (BEAKER) (test moww=7660) Rare SOURCE(BEAKER) (test wbym=6423) CREATINE KINASE (CK), TOTAL AND [id number] 02:03:00 Test Item Value Reference Range Comments CREATINE KINASE TOTAL (BEAKER) (test yfid=878) 115 U/L 29-200 CREATINE KINASE-MB (BEAKER) (test hefh=335) 2.7 ng/mL 0.0-6.6 CREATINE KINASE-MB INDEX (BEAKER) (test jaue=132) 2.3 % CK-MB Reference Range:<6.7 Normal6.7-10.0 Borderline>10.0 AbnormalTROPONIN [id number] 02:03:00 Test Item Value Reference Range Comments TROPONIN I (BEAKER) (test ediu=688) 0.03 ng/mL 0.00-0.03 Troponin I (TnI) levels must be interpreted [...] failure, acidosis, acute neurological disease, and persistent tachyarrhythmia.HEPATIC FUNCTION [id number] 01:56: 00 Test Item Value Reference Range Comments TOTAL PROTEIN (BEAKER) (test oyrm=133) 6.3 gm/dL 6.0-8.3 ALBUMIN (BEAKER) (test ncob=2546) 3.9 g/dL 3.5-5.0 BILIRUBIN TOTAL (BEAKER) (test ueey=773) 0.3 mg/dL 0.2-1.2 BILIRUBIN DIRECT (BEAKER) (test mfkz=642) 0.2 mg/dL 0.1-0.5 ALKALINE PHOSPHATASE (BEAKER) (test sprk=929) 51 U/L 40-150 AST (SGOT) (BEAKER) (test xprs=887) 17 U/L 5-34 ALT (SGPT) (BEAKER) (test dbtg=802) 13 U/L 6-55 CREATINE KINASE (CK), TOTAL AND [id number] 22:41:00 Test Item Value Reference Range Comments CREATINE KINASE TOTAL (BEAKER) (test ltxi=225) 132 U/L 29-200 CREATINE KINASE-MB (BEAKER) (test bsyv=651) 3.1 ng/mL 0.0-6.6 CREATINE KINASE-MB INDEX (BEAKER) (test iyeu=622) 2.3 % CK-MB Reference Range:<6.7 Normal6.7-10.0 Borderline>10.0 AbnormalTROPONIN [id number] 22:41:00 Test Item Value Reference Range Comments TROPONIN I (BEAKER) (test gocr=205) 0.02 ng/mL 0.00-0.03 Troponin I (TnI) levels must be interpreted [...] failure, acidosis, acute neurological disease, and persistent tachyarrhythmia.B-TYPE NATRIURETIC FACTOR (BNP) 22:40:00 Test Item Value Reference Range Comments B-TYPE NATRIURETIC PEPTIDE (BEAKER) (test 157 pg/mL 0-100 rszo=459) RAD, CHEST, 1 VIEW, NON [id number] 22:37:00Reason for exam:-> PALPITATIONSShould this be performed at the bedside?->YesFINAL REPORT Exam: Chest one view. Clinical history: Palpitations Comparison: No prior study for comparison. Technique: A single frontal view of the chest was obtained. Findings: There is moderate cardiomegaly. There is a left-sided AICD with single lead overlying the right ventricle. The patient is status post median sternotomy and CABG. There is mild pulmonary vascular congestion. There is no pulmonary edema, focal pulmonary consolidation, pneumothorax or pleural effusion.Impression:Moderate cardiomegaly. Mild pulmonary vascular congestion. No focal pulmonary consolidation. Signed: Magnolia Montes MDRepcox [place] Verified Date/Time: 09/09/2017 22:37:39 Reading Location: [address] Reading Room BASI METABOLIC [id number] 22:36:00 Test Item Value Reference Range Comments SODIUM (BEAKER) (test 136 meq/L 136-145 qtrz=038) POTASSIUM (BEAKER) (test 4.2 meq/L 3.5-5.1 Specimen slightly ahdh=390) hemolyzed CHLORIDE (BEAKER) (test 104 meq/L 98-107 znhw=622) CO2 (BEAKER) (test 22 meq/L 22-29 anno=485) BLOOD UREA NITROGEN 32 mg/dL 7-21 (BEAKER) (test efvg=763) CREATININE (BEAKER) (test 1.18 mg/dL 0.57-1.25 Specimen slightly vnsw=347) hemolyzed GLUCOSE RANDOM (BEAKER) 150 mg/dL 70-105 (test rwap=880) CALCIUM (BEAKER) (test 9.7 mg/dL 8.4-10.2 cqrv=259) EGFR (BEAKER) (test mL/min/1.73 sq m INSUFFICIENT CLINICAL DATA kqja=2011) TO CALCULATE ESTIMATED GFR. [id number] 22:34:00 Test Item Value Reference Range Comments MAGNESIUM (BEAKER) (test 2.4 mg/dL 1.6-2.6 Specimen slightly hemolyzed cctf=678) CBC W/PLT COUNT & AUTO [id number] 22:10:00 Test Item Value Reference Range Comments WHITE BLOOD CELL COUNT (BEAKER) (test rafy=448) 7.1 K/ L 3.5-10.5 RED BLOOD CELL COUNT (BEAKER) (test anqd=046) 4.40 M/ L 4.63-6.08 HEMOGLOBIN (BEAKER) (test zkrq=013) 13.8 GM/DL 13.7-17.5 HEMATOCRIT (BEAKER) (test wyob=822) 41.4 % 40.1-51.0 MEAN CORPUSCULAR VOLUME (BEAKER) (test xkyv=522) 94.1 fL 79.0-92.2 MEAN CORPUSCULAR HEMOGLOBIN (BEAKER) (test 31.4 pg 25.7-32.2 qspb=361) MEAN CORPUSCULAR HEMOGLOBIN CONC (BEAKER) (test 33.3 GM/DL 32.3-36.5 tqnj=106) RED CELL DISTRIBUTION WIDTH (BEAKER) (test 15.9 % 11.6-14.4 zzxz=671) PLATELET COUNT (BEAKER) (test hkgl=649) 159 K/CU MM 150-450 MEAN PLATELET VOLUME (BEAKER) (test rnqb=170) 10.9 fL 9.4-12.4 NUCLEATED RED BLOOD CELLS (BEAKER) (test 0 /100 WBC 0-0 ujeh=072) NEUTROPHILS RELATIVE PERCENT (BEAKER) (test 69 % bgmj=603) LYMPHOCYTES RELATIVE PERCENT (BEAKER) (test 22 % mdjf=344) MONOCYTES RELATIVE PERCENT (BEAKER) (test 8 % giyf=067) EOSINOPHILS RELATIVE PERCENT (BEAKER) (test 1 % ggqt=031) BASOPHILS RELATIVE PERCENT (BEAKER) (test 0 % cwlw=010) NEUTROPHILS ABSOLUTE COUNT (BEAKER) (test 4.89 K/ L 1.78-5.38 mmut=951) LYMPHOCYTES ABSOLUTE COUNT (BEAKER) (test 1.54 K/ L 1.32-3.57 xhyk=809) MONOCYTES ABSOLUTE COUNT (BEAKER) (test 0.57 K/ L 0.30-0.82 xevw=044) EOSINOPHILS ABSOLUTE COUNT (BEAKER) (test 0.07 K/ L 0.04-0.54 btxr=964) BASOPHILS ABSOLUTE COUNT (BEAKER) (test 0.03 K/ L 0.01-0.08 xzxu=909) IMMATURE GRANULOCYTES-RELATIVE PERCENT (BEAKER) 0 % 0-1 (test uquj=4431)
[2017-11-03] MEDS ORDERED: NA CHLORIDE 0.9% 1,000 ML ONE (09:55)
[2017-11-03] MEDS ORDERED: PROPOFOL 200 MG/20 ML VIAL IV ONE ×3 (11:30)
[2017-11-03] MEDS ORDERED: LIDOCAINE 1% MPF 5 ML VIAL ONE (11:30)
--- NOTE | 2017-11-03 12:02 | ENDO RPT ---
[address], [address] COLONOSCOPY PROCEDURE REPORT EXAM DATE: 11/03/2017 PATIENT NAME: Cuco Escobar MR #: [id number] BIRTHDATE: 1940 ATTENDING: Levi Morgan Dr STATUS: outpatient BRATTICE BUILDER: Zaina Morel, Alysia Blue RN, and Aurea Gonzáles RN INDICATIONS: The patient is a 77 yr old Male here for a colonoscopy due to history of colon cancer and follow-up of Crohn's disease PROCEDURE PERFORMED: Colonoscopy with biopsy, Colonoscopy for control of bleeding, and Colon w/ endoclip MEDICATIONS: Per Anesthesia. ESTIMATED BLOOD LOSS: None CONSENT: The patient understands the risks and benefits of the procedure and understands that these risks include, but are not limited to: sedation, allergic reaction, infection, perforation and/or bleeding. Alternative means of evaluation and treatment include, among others: physical exam, x-rays, and/or surgical intervention. The patient elects to proceed with this endoscopic procedure. DESCRIPTION OF PROCEDURE: During intra-op preparation period all mechanical medical equipment was checked for proper function. Hand hygiene and appropriate measures for infection prevention was taken. Procedure, possible complications, alternatives including, but not limited to possibility of bleeding, perforation, tear, infection, sepsis, need for surgery, need for blood transfusion, were explained to the patient. After the risks, benefits and alternatives of the procedure were thoroughly explained, Informed consent was verified, confirmed and timeout was successfully executed by the treatment team. The patient was placed in the left lateral position. A digital rectal exam was performed and revealed no abnormalities of the rectum. After appropriate level of anesthesia, the scope was passed. The EC-[id number] ([id number]) endoscope was introduced through the anus and advanced to the ileum. The quality of the prep was good. The instrument was then slowly withdrawn as the colon was fully examined. Scope withdrawal time was 8 minutes. COLON FINDINGS: There was evidence of a prior jpxd-rx-nwuf ileocolonic surgical anastomosis in the sigmoid colon. Small internal hemorrhoids were found. Retroflexed views revealed small hemorrhoids. Excessive bleeding from biopsy site in the rectum, controlled with endoclip placement. The scope was then completely withdrawn from the patient and the procedure terminated. ADVERSE EVENTS: bleeding 11/03/2017 11:58 AM. IMPRESSIONS: 1. There was evidence of a prior ileocolonic surgical anastomosis in the sigmoid colon at 25 cm from the anal verge 2. Small internal hemorrhoids 3. Random biopsies of the terminal ileum / colon / rectum obtained with history of Crohn's disease 4. Excessive bleeding from biopsy site in the rectum, controlled with endoclip placement RECOMMENDATIONS: await biopsy results RECALL: Return in 3 year(s) for Colonoscopy. Levi Morgan Dr eSigned: Levi Morgan Dr 11/03/2017 12:01 PM cc: CPT CODES: ICD9 CODES: V45.3 Postsurgical intestinal bypass or anastomosis status PATIENT NAME: Cuco Escobar MR#: [id number]
[2017-11-03 12:36] LABS: Absolute Lymphocytes (CBC) 0.9 K/uL (0.7-4.9); Absolute Monocytes 0.4 K/uL (0.1-1.3); Absolute Neutrophil 3.8 K/uL (1.8-8.0); Basophils % 0.6 % (0-1.3); Eosinophils % 0.5 % (0-4.4); Hematocrit 45.7 % (39.6-49.0); Lymphocytes % 17.7 % (15.3-44.8); MCH 30.8 pg (27.0-35.0); MCV 94.5 fL (80-100); MPV 8.8 fL (7.6-11.3); Monocytes % 8.5 % (3.3-12.3); RBC Red Blood Cell Count 4.84 M/uL (4.33-5.43)
[2017-11-03 13:09] LABS: Albumin 4.1 g/dL (3.2-5.5); Bilirubin Total 0.8 mg/dL (0.3-1.2); Protein, Total 6.9 g/dL (6.0-8.3)
--- NOTE | 2017-11-04 09:57 | RAD REPORT ---
EXAM DESCRIPTION: CT - Abdomen Pelvis W Contrast - 11/03/2017 2:40 pm CLINICAL HISTORY: Colon cancer. COMPARISON: None. TECHNIQUE: Computed axial tomography of the abdomen and pelvis was obtained. 100 mL Isovue-300 was a dministered intravenously. Oral contrast was given. FINDINGS: A colectomy has been performed. A small bowel obstruction is not noted. There is dilatatio n of a presumed loop of small bowel within the central lower abdomen measuring 6.4 cm in width. The gallbladder has been removed. The heart is enlarged. The liver, spleen, pancreas and adrenals are unremarkable. Small renal cysts are present. No lymphadenopathy is seen. No omental/mesenteric nodules are noted. The prostate gland is moderately enlarged. Small inguinal hernias contain fat. IMPRESSION: 1. Colectomy. 2. Dilatation of the what is presumed to be small bowel loop within the central lower abdomen probabl y is not clinically significant. 3. No evidence of metastatic disease. 4. Marked cardiomegaly.
== END 2017-11-03 15:30 | disposition home or self-care (01) ==
LOC: OR 08:46
PROVIDERS: ATTEND Internal Medicine Gastroenterology
PROC: 0DBE8ZX Excision of Large Intestine, Via Natural or Artificial Opening Endoscopic, Diagnostic (ICD-10-PCS; 2017-11-03)
PROC: 0DBP8ZX Excision of Rectum, Via Natural or Artificial Opening Endoscopic, Diagnostic (ICD-10-PCS; principal; 2017-11-03 11:45)
DX: K64.8 Other hemorrhoids (principal); Z85.038 Personal history of other malignant neoplasm of large intestine; K50.90 Crohn's disease, unspecified, without complications
CPT/HCPCS: 36415; 45380; 74177; 80053; 82378; 82962; 85025; 88305; J7030; Q9967

== ENCOUNTER 2017-11-30 06:51 | Day surgery (SDC) | payer OTHER ==
--- OUTSIDE RECORDS SUMMARY | 2017-11-30 06:58 | XMS REPORT | Clinical Summary ---
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) 09/09/2017 Orders Only General Internal Medicine after 11/29/2016 Social History Tobacco Use Types Packs/Day Years Used Date Never Smoker Smokeless Tobacco: Never Used Alcohol Use Drinks/Week oz/Week Comments No Sex Assigned at Date Recorded Not on file Last Filed Vital Signs Vital Sign Reading Time Taken Blood Pressure 109/61 09/14/2017 10:22 AM MANUFACTURING TECHNOLOGY PROFESSOR Pulse 56 09/14/2017 7:30 AM MANUFACTURING TECHNOLOGY PROFESSOR Temperature 36.4 C (97.6 F) 09/14/2017 7:30 AM MANUFACTURING TECHNOLOGY PROFESSOR Respiratory Rate 18 09/14/2017 7:30 AM MANUFACTURING TECHNOLOGY PROFESSOR Oxygen Saturation 96% 09/14/2017 7:30 AM MANUFACTURING TECHNOLOGY PROFESSOR Inhaled Oxygen Concentration - - Weight 90.7 kg (200 lb) 09/14/2017 7:30 AM MANUFACTURING TECHNOLOGY PROFESSOR Height 182.9 cm (6') 09/09/2017 9:43 PM MANUFACTURING TECHNOLOGY PROFESSOR Body Mass Index 27.12 09/14/2017 7:30 AM MANUFACTURING TECHNOLOGY PROFESSOR Plan of Treatment Not on file Procedures Procedure Name Priority Date/Time Associated Diagnosis Comments L CATH & PCI 09/12/2017 2:42 PM MANUFACTURING TECHNOLOGY PROFESSOR chest pain after 11/29/2016 Results RHYTHM STRIP - SCAN (10/18/2017 10:53 [...] Range POC-Glucose Meter 214 (H)Comment: TESTED AT [address] 70 - 110 mg/[place] [address] Specimen Performing Laboratory Blood [facility] [address] [address] XR chest 1 view portable / bedside [...] MD Report Verified Date/Time:09/14/2017 09:52:44 Reading Location: [facility] Diagnostic Imaging Reading Room - [place] [address] Procedure Note Interface, External Ris In - 09/14/2017 9:54 AM MANUFACTURING TECHNOLOGY PROFESSOR FINAL REPORT Portable chest CLINICAL HISTORY: Short of breath Comparison: 09/13/2017. FINDINGS: The cardiac silhouette is enlarged. The patient is status post sternotomy. A pacer device is seen. There are mild interstitial markings but no definite focal opacity, pleural effusion or pneumothorax. Degenerative changes are noted. IMPRESSION: No significant change. Signed: Gonzalo Rose MD Report Verified Date/Time: 09/14/2017 09:52:44 Reading Location: [facility] Diagnostic Imaging Reading Room - [place] [address] with platelet count + automated diff (09/14/2017 [...] 1 % Specimen Performing Laboratory Blood [facility] [address] [address] CBC with platelet count + automated diff (09/14/2017 4:41 AM)Only the most recent of6 resultswithin the time period is included. Specimen Performing Laboratory Blood Narrative The following orders were created for panel order CBC with platelet count + automated diff. Procedure Abnormality Status --------- ------ CBC with platelet count ...[[id number]]AbnormalFinal result Please view results for these tests on the individual orders. Magnesium (09/14/2017 4:41 AM)Only the most recent of7 resultswithin the time period is included. Component Value Ref Range Magnesium 1.9 1.6 - 2.6 mg/dL Specimen Performing Laboratory Blood [address] [address] Basic metabolic panel (09/14/2017 4:41 AM)Only the [...] FOR DIALYSIS PATIENTS. Specimen Performing Laboratory Blood [address] [address] ECHOCARDIOGRAM REPORT - SCAN (09/12/2017 1:20 PM)aPTT (09/11/2017 3:35 AM) Component Value Ref Range PTT 26.5 22.5 - 36.0 seconds Specimen Performing Laboratory Blood - Arm, [address] [address] Prothrombin time/INR (09/11/2017 3:35 AM) Component Value Ref Range Protime 14.4 11.7 - 14.7 seconds INR 1.1 <=5.9 Specimen Performing Laboratory Blood - Arm, Right [facility] [address] [address] Narrative RECOMMENDED COUMADIN/WARFARIN INR THERAPY RANGES STANDARD [...] - 0.03 ng/mL Specimen Performing Laboratory Blood [address] [address] Narrative Troponin I (TnI) levels must be [...] Index 2.5 % Specimen Performing Laboratory Blood [address] [address] Narrative CK-MB Reference Range: <6.7Normal 6.7-10.0Borderline >10.0 Abnormal Urinalysis w/ Microscopic (09/10/2017 4:27 PM)Only the most recent of2 resultswithin the time period is included. Component Value Ref Range Color, UA Light Yellow Clarity, UA Clear Specific [place], UA 1.009 1.001 - 1.035 pH, UA [...] Specimen Performing Laboratory Urine - Urine, Voided [address] [address] B-type Natriuretic Factor (BNP) (09/10/2017 4:27 PM)Only the most recent of2 resultswithin the time period is included. Component Value Ref Range BNP 246 (H) 0 - 100 pg/mL Specimen Performing Laboratory Blood [address] [address] Transthoracic 2D echo w/ doppler (cw/pw/color) (09/10/2017 2:49 PM) Component Value Ref Range Ejection Fraction Specimen Performing Laboratory SLE ECHO HEARTLAB MKCKESSON CPACS Narrative Transthoracic Echocardiography Report (TTE) Demographics Patient Name TONY VERDUZCO Date of Study09/10/2017 [id number] Gender Male Visit Number [id number] Race Unknown [id number] Number [id number] Number Date of Birth1940 Referring PhysicianAnjana Schaffer Age77 year(s) SonographerLashae Keane AnalystAriadnaInterpreting Frances BaerasPhysiciolivia MESA Procedure Type of Study TTE procedure:2DECHO [...] Left AtriumLA size is severely enlarged (>48 ml/m2) . 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 T waves abnormal. Warren is right. Q-waves are present in lead(s) I, II, III and aVF. Clinical Impression: abnormal ECGECG reviewed and does not meet STEMI criteria. ECG 12 lead (09/09/2017 10:32 PM)Only the most recent of2 resultswithin the time period is included. Specimen Performing Laboratory [employer] Narrative Ventricular Rate 59 BPM Atrial Rate 59 BPM P-R Interval 174 ms QRS Duration 160 ms Q-T Interval 504 ms QTC Calculation(Bazett) 498 ms P Warren 11 degrees R Warren -20 degrees T Warren -3 degrees Sinus bradycardia Right bundle branch block Left ventricular hypertrophy with QRS widening Inferior infarct , age undetermined Anterolateral infarct , age undetermined Abnormal ECG No previous ECGs available Confirmed by MD ISAURA, JONAH Barron ([id number]) on 09/11/2017 7:34:21 AM Procedure Note Interface, External Ris In - 09/11/2017 7:34 AM MANUFACTURING TECHNOLOGY PROFESSOR Ventricular Rate 59 BPM Atrial Rate 59 BPM P-R Interval 174 ms QRS Duration 160 ms Q-T Interval 504 ms QTC Calculation(Bazett) 498 ms P Warren 11 degrees R Warren -20 degrees T Warren -3 degrees Sinus bradycardia Right bundle branch block Left ventricular hypertrophy with QRS widening Inferior infarct , age undetermined Anterolateral infarct , age undetermined Abnormal ECG No previous ECGs available Confirmed by MD ISAURA, JONAH Barron ([id number]) on 09/11/2017 7:34:21 AM after 11/29/2016
--- OUTSIDE RECORDS SUMMARY | 2017-11-30 06:59 | XMS REPORT ---
:1940 Author Organization [facility] Address [address] [place] [address] Dr. Hoffman. [address] [place] [address] Care Team Providers Name Role Phone ZHENG [...] VIEW, NON DEPT exam:->SOBShould this be ID: [id number] Portable performed at the chest CLINICAL HISTORY: bedside?->Yes Short of breath Comparison: 09/13/2017. FINDINGS: The cardiac silhouette is enlarged. The patient is status post sternotomy. A pacer device is seen. There are mild interstitial markings but no definite focal opacity, pleural effusion or pneumothorax. Degenerative changes are noted. IMPRESSION: No significant change. Signed: Gonzalo Rose Verified Date/Time: 09/14/2017 09:52:44 Reading Location: [facility] Diagnostic Imaging Reading Room - [place] [id number] -GLUCOSE METER 2017-09-14 07:56:00 Test Item Value Reference Range Comments POC-GLUCOSE METER (BEAKER) (test 214 mg/dL 70-110 TESTED AT [address] oyfr=5945) [facility] [address] POCT-GLUCOSE [id number] 07:17:00 Test Item Value Reference Range Comments POC-GLUCOSE METER (BEAKER) 184 mg/dL 70-110 TESTED AT [address] (test ccif=1826) [facility] [address] [id number] 05:37:00 Test Item Value Reference Range Comments MAGNESIUM (BEAKER) (test hxcj=333) 1.9 mg/dL 1.6-2.6 BASIC METABOLIC [id number] 05:37:00 Test Item Value Reference Range Comments SODIUM (BEAKER) (test 137 meq/L 136-145 fhmw=997) POTASSIUM (BEAKER) (test 4.3 meq/L 3.5-5.1 yzee=296) CHLORIDE (BEAKER) (test 101 meq/L 98-107 vfhv=999) CO2 (BEAKER) (test 25 meq/L 22-29 xzrt=611) BLOOD UREA NITROGEN 31 mg/dL 7-21 (BEAKER) (test fnwx=640) CREATININE (BEAKER) (test 1.13 mg/dL 0.57-1.25 pbnx=969) GLUCOSE RANDOM (BEAKER) 180 mg/dL 70-105 (test bxyl=031) CALCIUM (BEAKER) (test 9.9 mg/dL 8.4-10.2 wtym=743) EGFR (BEAKER) (test 63 mL/min/1.73 sq m ESTIMATED GFR IS NOT zqdj=8159) ACCURATE CREATININE CLEARANCE IN PREDICTING GLOMERULAR FILTRATION RATE. ESTIMATED GFR IS NOT APPLICABLE FOR DIALYSIS PATIENTS. CBC W/PLT COUNT & AUTO [id number] 05:07:00 Test Item Value Reference Range Comments WHITE BLOOD CELL COUNT (BEAKER) (test sgmu=180) 4.7 K/ L 3.5-10.5 RED BLOOD CELL COUNT (BEAKER) (test wefl=533) 4.57 M/ L 4.63-6.08 HEMOGLOBIN (BEAKER) (test dhzr=956) 14.2 GM/DL 13.7-17.5 HEMATOCRIT (BEAKER) (test jsxd=472) 42.3 % 40.1-51.0 MEAN CORPUSCULAR VOLUME (BEAKER) (test gjbg=462) 92.6 fL 79.0-92.2 MEAN CORPUSCULAR HEMOGLOBIN (BEAKER) (test 31.1 pg 25.7-32.2 mtpi=687) MEAN CORPUSCULAR HEMOGLOBIN CONC (BEAKER) (test 33.6 GM/DL 32.3-36.5 iemq=562) RED CELL DISTRIBUTION WIDTH (BEAKER) (test 15.3 % 11.6-14.4 mzue=530) PLATELET COUNT (BEAKER) (test wjqc=268) 126 K/CU MM 150-450 MEAN PLATELET VOLUME (BEAKER) (test artj=939) 10.5 fL 9.4-12.4 NUCLEATED RED BLOOD CELLS (BEAKER) (test 0 /100 WBC 0-0 nrxq=540) NEUTROPHILS RELATIVE PERCENT (BEAKER) (test 61 % rkgc=165) LYMPHOCYTES RELATIVE PERCENT (BEAKER) (test 26 % vwff=041) MONOCYTES RELATIVE PERCENT (BEAKER) (test 10 % djfp=724) EOSINOPHILS RELATIVE PERCENT (BEAKER) (test 2 % xgbb=481) BASOPHILS RELATIVE PERCENT (BEAKER) (test 1 % fbsr=331) NEUTROPHILS ABSOLUTE COUNT (BEAKER) (test 2.83 K/ L 1.78-5.38 odlu=485) LYMPHOCYTES ABSOLUTE COUNT (BEAKER) (test 1.24 K/ L 1.32-3.57 wwgl=706) MONOCYTES ABSOLUTE COUNT (BEAKER) (test 0.48 K/ L 0.30-0.82 pzlq=419) EOSINOPHILS ABSOLUTE COUNT (BEAKER) (test 0.10 K/ L 0.04-0.54 iotl=692) BASOPHILS ABSOLUTE COUNT (BEAKER) (test 0.03 K/ L 0.01-0.08 zppy=172) IMMATURE GRANULOCYTES-RELATIVE PERCENT (BEAKER) 0 % 0-1 (test kpvu=2352) POCT-GLUCOSE [id number] 18:32:00 Test Item Value Reference Range Comments POC-GLUCOSE METER (BEAKER) 230 mg/dL 70-110 TESTED AT [address] (test eyih=0320) [place] [id number] POCT-GLUCOSE [id number] 16:39:00 Test Item Value Reference Range Comments POC-GLUCOSE METER (BEAKER) 254 mg/dL 70-110 TESTED AT [address] (test yowd=7253) [place] [address] POCT-GLUCOSE [id number] 12:51:00 Test Item Value Reference Range Comments POC-GLUCOSE METER (BEAKER) 326 mg/dL 70-110 TESTED AT [address] (test tydu=2318) [place] [id number] RAD, CHEST, 1 VIEW, NON [id number] 09:57:00Reason for exam:->SOBShould this be performed at the bedside?->YesFINAL REPORT CLINICAL HISTORY: SOB TECHNIQUE: 1 view of the chest. COMPARISON: 09/09/2017 IMPRESSION: There are no focal infiltrates or effusions. The cardiomediastinal silhouetteis magnified by technique with sternotomy wires and a pacemaker. Signed: Daniel Lanza MDReport Verified Date/Time: 09/13/2017 09:57:46 Reading Location: [facility] Radiology Reading Room [id number] 04:43:00 Test Item Value Reference Range Comments MAGNESIUM (BEAKER) (test arcl=977) 2.2 mg/dL 1.6-2.6 BASIC METABOLIC [id number] 04:43:00 Test Item Value Reference Range Comments SODIUM (BEAKER) (test 138 meq/L 136-145 zovf=196) POTASSIUM (BEAKER) (test 4.2 meq/L 3.5-5.1 qini=945) CHLORIDE (BEAKER) (test 102 meq/L 98-107 drrj=623) CO2 (BEAKER) (test 27 meq/L 22-29 thae=643) BLOOD UREA NITROGEN 25 mg/dL 7-21 (BEAKER) (test gayz=387) CREATININE (BEAKER) (test 1.08 mg/dL 0.57-1.25 crbh=003) GLUCOSE RANDOM (BEAKER) 169 mg/dL 70-105 (test thfq=751) CALCIUM (BEAKER) (test 9.9 mg/dL 8.4-10.2 cxfd=381) EGFR (BEAKER) (test 66 mL/min/1.73 sq m ESTIMATED GFR IS NOT ziil=7626) ACCURATE CREATININE CLEARANCE IN PREDICTING GLOMERULAR FILTRATION RATE. ESTIMATED GFR IS NOT APPLICABLE FOR DIALYSIS PATIENTS. CBC W/PLT COUNT & AUTO [id number] 04:23:00 Test Item Value Reference Range Comments WHITE BLOOD CELL COUNT (BEAKER) (test suzl=629) 5.6 K/ L 3.5-10.5 RED BLOOD CELL COUNT (BEAKER) (test educ=113) 4.81 M/ L 4.63-6.08 HEMOGLOBIN (BEAKER) (test fthf=832) 14.9 GM/DL 13.7-17.5 HEMATOCRIT (BEAKER) (test diga=705) 44.9 % 40.1-51.0 MEAN CORPUSCULAR VOLUME (BEAKER) (test smru=179) 93.3 fL 79.0-92.2 MEAN CORPUSCULAR HEMOGLOBIN (BEAKER) (test 31.0 pg 25.7-32.2 wpaf=941) MEAN CORPUSCULAR HEMOGLOBIN CONC (BEAKER) (test 33.2 GM/DL 32.3-36.5 ehhy=462) RED CELL DISTRIBUTION WIDTH (BEAKER) (test 15.3 % 11.6-14.4 wpik=164) PLATELET COUNT (BEAKER) (test ozmi=619) 144 K/CU MM 150-450 MEAN PLATELET VOLUME (BEAKER) (test zzfq=546) 10.7 fL 9.4-12.4 NUCLEATED RED BLOOD CELLS (BEAKER) (test 0 /100 WBC 0-0 njil=722) NEUTROPHILS RELATIVE PERCENT (BEAKER) (test 65 % odqt=872) LYMPHOCYTES RELATIVE PERCENT (BEAKER) (test 22 % bxoj=048) MONOCYTES RELATIVE PERCENT (BEAKER) (test 11 % efgt=344) EOSINOPHILS RELATIVE PERCENT (BEAKER) (test 2 % kcky=957) BASOPHILS RELATIVE PERCENT (BEAKER) (test 1 % tayu=379) NEUTROPHILS ABSOLUTE COUNT (BEAKER) (test 3.63 K/ L 1.78-5.38 zlig=371) LYMPHOCYTES ABSOLUTE COUNT (BEAKER) (test 1.24 K/ L 1.32-3.57 bdzb=363) MONOCYTES ABSOLUTE COUNT (BEAKER) (test 0.61 K/ L 0.30-0.82 ibqo=536) EOSINOPHILS ABSOLUTE COUNT (BEAKER) (test 0.10 K/ L 0.04-0.54 qeaa=462) BASOPHILS ABSOLUTE COUNT (BEAKER) (test 0.03 K/ L 0.01-0.08 pezq=850) IMMATURE GRANULOCYTES-RELATIVE PERCENT (BEAKER) 0 % 0-1 (test rlmj=3312) POCT-GLUCOSE [id number] 22:01:00 Test Item Value Reference Range Comments POC-GLUCOSE METER (BEAKER) 141 mg/dL 70-110 TESTED AT [facility] [address] [facility] (test ucai=2427) [facility] [address] POCT-GLUCOSE [id number] 14:30:00 Test Item Value Reference Range Comments POC-GLUCOSE METER (BEAKER) 133 mg/dL 70-110 TESTED AT [facility] [address] [facility] (test lcws=1562) [facility] [address] POCT-GLUCOSE [id number] 08:06:00 Test Item Value Reference Range Comments POC-GLUCOSE METER (BEAKER) 175 mg/dL 70-110 TESTED AT [place] [id number] [facility] (test itvu=6057) [facility] [address] [id number] 06:06:00 Test Item Value Reference Range Comments MAGNESIUM (BEAKER) (test 2.1 mg/dL 1.6-2.6 Specimen slightly hemolyzed djie=334) BASIC METABOLIC [id number] 06:06:00 Test Item Value Reference Range Comments SODIUM (BEAKER) (test 135 meq/L 136-145 cnrg=943) POTASSIUM (BEAKER) (test 4.3 meq/L 3.5-5.1 Specimen slightly rxrv=281) hemolyzed CHLORIDE (BEAKER) (test 103 meq/L 98-107 cehe=659) CO2 (BEAKER) (test 22 meq/L 22-29 iyrl=205) BLOOD UREA NITROGEN 33 mg/dL 7-21 (BEAKER) (test rtij=924) CREATININE (BEAKER) (test 1.11 mg/dL 0.57-1.25 Specimen slightly mznp=398) hemolyzed GLUCOSE RANDOM (BEAKER) 156 mg/dL 70-105 (test rjmx=707) CALCIUM (BEAKER) (test 9.9 mg/dL 8.4-10.2 azdc=811) EGFR (BEAKER) (test 64 mL/min/1.73 sq m ESTIMATED GFR IS NOT ntmq=9251) ACCURATE CREATININE CLEARANCE IN PREDICTING GLOMERULAR FILTRATION RATE. ESTIMATED GFR IS NOT APPLICABLE FOR DIALYSIS PATIENTS. CBC W/PLT COUNT & AUTO [id number] 05:05:00 Test Item Value Reference Range Comments WHITE BLOOD CELL COUNT (BEAKER) (test artk=861) 5.2 K/ L 3.5-10.5 RED BLOOD CELL COUNT (BEAKER) (test ujur=379) 4.65 M/ L 4.63-6.08 HEMOGLOBIN (BEAKER) (test rill=273) 14.3 GM/DL 13.7-17.5 HEMATOCRIT (BEAKER) (test ayka=597) 43.2 % 40.1-51.0 MEAN CORPUSCULAR VOLUME (BEAKER) (test pdqh=867) 92.9 fL 79.0-92.2 MEAN CORPUSCULAR HEMOGLOBIN (BEAKER) (test 30.8 pg 25.7-32.2 milu=066) MEAN CORPUSCULAR HEMOGLOBIN CONC (BEAKER) (test 33.1 GM/DL 32.3-36.5 dhbe=352) RED CELL DISTRIBUTION WIDTH (BEAKER) (test 15.7 % 11.6-14.4 gjod=865) PLATELET COUNT (BEAKER) (test vdij=872) 132 K/CU MM 150-450 MEAN PLATELET VOLUME (BEAKER) (test kzmj=273) 10.4 fL 9.4-12.4 NUCLEATED RED BLOOD CELLS (BEAKER) (test 0 /100 WBC 0-0 iopu=925) NEUTROPHILS RELATIVE PERCENT (BEAKER) (test 64 % aggp=592) LYMPHOCYTES RELATIVE PERCENT (BEAKER) (test 24 % vvbn=195) MONOCYTES RELATIVE PERCENT (BEAKER) (test 10 % paps=810) EOSINOPHILS RELATIVE PERCENT (BEAKER) (test 1 % ucdn=749) BASOPHILS RELATIVE PERCENT (BEAKER) (test 1 % zwue=895) NEUTROPHILS ABSOLUTE COUNT (BEAKER) (test 3.31 K/ L 1.78-5.38 euwp=507) LYMPHOCYTES ABSOLUTE COUNT (BEAKER) (test 1.24 K/ L 1.32-3.57 wwts=784) MONOCYTES ABSOLUTE COUNT (BEAKER) (test 0.49 K/ L 0.30-0.82 eeig=287) EOSINOPHILS ABSOLUTE COUNT (BEAKER) (test 0.07 K/ L 0.04-0.54 fraa=320) BASOPHILS ABSOLUTE COUNT (BEAKER) (test 0.04 K/ L 0.01-0.08 eaig=389) IMMATURE GRANULOCYTES-RELATIVE PERCENT (BEAKER) 0 % 0-1 (test gchh=1552) [id number] 23:26:00 Test Item Value Reference Range Comments MAGNESIUM (BEAKER) (test shbs=560) 2.1 mg/dL 1.6-2.6 BASIC METABOLIC [id number] 23:26:00 Test Item Value Reference Range Comments SODIUM (BEAKER) (test 136 meq/L 136-145 vjxl=769) POTASSIUM (BEAKER) (test 4.3 meq/L 3.5-5.1 twlh=743) CHLORIDE (BEAKER) (test 101 meq/L 98-107 ezkl=100) CO2 (BEAKER) (test 25 meq/L 22-29 uqft=550) BLOOD UREA NITROGEN 36 mg/dL 7-21 (BEAKER) (test wwkb=082) CREATININE (BEAKER) (test 1.14 mg/dL 0.57-1.25 tzqm=945) GLUCOSE RANDOM (BEAKER) 148 mg/dL 70-105 (test aaqu=195) CALCIUM (BEAKER) (test 10.3 mg/dL 8.4-10.2 qily=733) EGFR (BEAKER) (test 62 mL/min/1.73 sq m ESTIMATED GFR IS NOT rfvs=6271) ACCURATE CREATININE CLEARANCE IN PREDICTING GLOMERULAR FILTRATION RATE. ESTIMATED GFR IS NOT APPLICABLE FOR DIALYSIS PATIENTS. POCT-GLUCOSE [id number] 23:05:00 Test Item Value Reference Range Comments POC-GLUCOSE METER (BEAKER) 169 mg/dL 70-110 TESTED AT [address] (test vyha=6523) [place] [address] POCT-GLUCOSE [id number] 17:13:00 Test Item Value Reference Range Comments POC-GLUCOSE METER (BEAKER) 243 mg/dL 70-110 TESTED AT [address] (test xtdu=0598) [place] [id number] POCT-GLUCOSE [id number] 11:56:00 Test Item Value Reference Range Comments POC-GLUCOSE METER (BEAKER) 182 mg/dL 70-110 TESTED AT [address] (test fxii=3767) [place] [address] POCT-GLUCOSE [id number] 07:56:00 Test Item Value Reference Range Comments POC-GLUCOSE METER (BEAKER) 197 mg/dL 70-110 TESTED AT [address] (test cgnj=6236) [place] [address] [id number] 04:48:00 Test Item Value Reference Range Comments MAGNESIUM (BEAKER) (test qiyq=677) 2.2 mg/dL 1.6-2.6 BASIC METABOLIC [id number] 04:48:00 Test Item Value Reference Range Comments SODIUM (BEAKER) (test 137 meq/L 136-145 rdpo=223) POTASSIUM (BEAKER) (test 4.4 meq/L 3.5-5.1 bwyn=125) CHLORIDE (BEAKER) (test 106 meq/L 98-107 srjp=585) CO2 (BEAKER) (test 23 meq/L 22-29 jxbb=742) BLOOD UREA NITROGEN 34 mg/dL 7-21 (BEAKER) (test ugql=059) CREATININE (BEAKER) (test 1.14 mg/dL 0.57-1.25 bequ=360) GLUCOSE RANDOM (BEAKER) 160 mg/dL 70-105 (test myjy=335) CALCIUM (BEAKER) (test 9.8 mg/dL 8.4-10.2 uwbh=741) EGFR (BEAKER) (test 62 mL/min/1.73 sq m ESTIMATED GFR IS NOT ydsb=5965) ACCURATE CREATININE CLEARANCE IN PREDICTING GLOMERULAR FILTRATION RATE. ESTIMATED GFR IS NOT APPLICABLE FOR DIALYSIS PATIENTS. [id number] 04:29:00 Test Item Value Reference Range Comments PARTIAL THROMBOPLASTIN TIME (BEAKER) (test 26.5 seconds 22.5-36.0 ogrm=103) PROTHROMBIN TIME/[id number] 04:28:00 Test Item Value Reference Range Comments PROTIME (BEAKER) (test nrso=966) 14.4 seconds 11.7-14.7 INR (BEAKER) (test kxjp=717) 1.1 <=5.9 RECOMMENDED COUMADIN/WARFARIN INR THERAPY RANGESSTANDARD DOSE: 2.0 - 3.0 Includes: PROPHYLAXIS forvenous thrombosis, systemic embolization; TREATMENT for venous thrombosis and/or pulmonary embolus.HIGH RISK: Target INR is 2.5-3.5 for patients with mechanical heart valves.CBC W/PLT COUNT & AUTO [id number] 04:05:00 Test Item Value Reference Range Comments WHITE BLOOD CELL COUNT (BEAKER) (test chhe=308) 5.2 K/ L 3.5-10.5 RED BLOOD CELL COUNT (BEAKER) (test zmvr=333) 4.65 M/ L 4.63-6.08 HEMOGLOBIN (BEAKER) (test ueok=640) 14.2 GM/DL 13.7-17.5 HEMATOCRIT (BEAKER) (test aweb=519) 43.2 % 40.1-51.0 MEAN CORPUSCULAR VOLUME (BEAKER) (test berw=873) 92.9 fL 79.0-92.2 MEAN CORPUSCULAR HEMOGLOBIN (BEAKER) (test 30.5 pg 25.7-32.2 gfdo=032) MEAN CORPUSCULAR HEMOGLOBIN CONC (BEAKER) (test 32.9 GM/DL 32.3-36.5 fnvi=029) RED CELL DISTRIBUTION WIDTH (BEAKER) (test 15.8 % 11.6-14.4 xklq=516) PLATELET COUNT (BEAKER) (test spvu=354) 141 K/CU MM 150-450 MEAN PLATELET VOLUME (BEAKER) (test hzov=634) 10.7 fL 9.4-12.4 NUCLEATED RED BLOOD CELLS (BEAKER) (test 0 /100 WBC 0-0 efve=120) NEUTROPHILS RELATIVE PERCENT (BEAKER) (test 64 % jkug=349) LYMPHOCYTES RELATIVE PERCENT (BEAKER) (test 24 % hrpq=898) MONOCYTES RELATIVE PERCENT (BEAKER) (test 9 % hhlu=824) EOSINOPHILS RELATIVE PERCENT (BEAKER) (test 2 % eikh=840) BASOPHILS RELATIVE PERCENT (BEAKER) (test 0 % xqxz=635) NEUTROPHILS ABSOLUTE COUNT (BEAKER) (test 3.33 K/ L 1.78-5.38 rawn=403) LYMPHOCYTES ABSOLUTE COUNT (BEAKER) (test 1.25 K/ L 1.32-3.57 jxfw=490) MONOCYTES ABSOLUTE COUNT (BEAKER) (test 0.48 K/ L 0.30-0.82 ypte=411) EOSINOPHILS ABSOLUTE COUNT (BEAKER) (test 0.08 K/ L 0.04-0.54 rsqx=610) BASOPHILS ABSOLUTE COUNT (BEAKER) (test 0.02 K/ L 0.01-0.08 jgrd=117) IMMATURE GRANULOCYTES-RELATIVE PERCENT (BEAKER) 0 % 0-1 (test afai=3875) POCT-GLUCOSE [id number] 21:23:00 Test Item Value Reference Range Comments POC-GLUCOSE METER (BEAKER) 173 mg/dL 70-110 TESTED AT [facility] [address] [facility] (test qjjt=7581) [place] [address] URINALYSIS W/ [id number] 17:46:00 Test Item Value Reference Range Comments COLOR (BEAKER) (test ytkw=107) Light Yellow CLARITY (BEAKER) (test hltl=757) Clear SPECIFIC GRAVITY UA (BEAKER) (test idff=664) 1.009 1.001-1.035 PH UA (BEAKER) (test gtmy=445) 5.0 5.0-8.0 PROTEIN UA (BEAKER) (test jnuv=407) Negative Negative GLUCOSE UA (BEAKER) (test cgfv=389) >1000 mg/dL Negative KETONES UA (BEAKER) (test gwcc=941) Negative Negative BILIRUBIN UA (BEAKER) (test fhic=476) Negative Negative BLOOD UA (BEAKER) (test jink=163) Negative Negative NITRITE UA (BEAKER) (test juxk=478) Negative Negative LEUKOCYTE ESTERASE UA (BEAKER) (test ppcc=634) Negative Negative UROBILINOGEN UA (BEAKER) (test pioh=186) 0.2 mg/dL 0.2-1.0 RBC UA (BEAKER) (test ehew=797) 1 /HPF WBC UA (BEAKER) (test yzmv=652) < /HPF HYALINE CASTS (BEAKER) (test yuli=611) 2 /LPF SOURCE(BEAKER) (test bunt=8272) Urine, Voided B-TYPE NATRIURETIC FACTOR (BNP)[id number] 17:39:00 Test Item Value Reference Range Comments B-TYPE NATRIURETIC PEPTIDE (BEAKER) (test 246 pg/mL 0-100 vowd=891) CREATINE KINASE (CK), TOTAL AND [id number] 17:37:00 Test Item Value Reference Range Comments CREATINE KINASE TOTAL (BEAKER) (test uivo=939) 105 U/L 29-200 CREATINE KINASE-MB (BEAKER) (test gwuj=961) 2.6 ng/mL 0.0-6.6 CREATINE KINASE-MB INDEX (BEAKER) (test jvol=978) 2.5 % CK-MB Reference Range:<6.7 Normal6.7-10.0 Borderline>10.0 AbnormalTROPONIN [id number] 17:37:00 Test Item Value Reference Range Comments TROPONIN I (BEAKER) (test nema=746) 0.03 ng/mL 0.00-0.03 Troponin I (TnI) levels [...] acidosis, acute neurological disease, and persistent tachyarrhythmia.POCT-GLUCOSE [id number] 16:57:00 Test Item Value Reference Range Comments POC-GLUCOSE METER (BEAKER) 144 mg/dL 70-110 TESTED AT [facility] [address] [facility] (test eekz=0272) [facility] [address] CREATINE KINASE (CK), TOTAL AND [id number] 08:52:00 Test Item Value Reference Range Comments CREATINE KINASE TOTAL (BEAKER) (test gajd=846) 126 U/L 29-200 CREATINE KINASE-MB (BEAKER) (test idwp=269) 2.9 ng/mL 0.0-6.6 CREATINE KINASE-MB INDEX (BEAKER) (test repu=053) 2.3 % CK-MB Reference Range:<6.7 Normal6.7-10.0 Borderline>10.0 AbnormalTROPONIN [id number] 08:52:00 Test Item Value Reference Range Comments TROPONIN I (BEAKER) (test kvma=815) 0.03 ng/mL 0.00-0.03 Troponin I (TnI) levels [...] failure, acidosis, acute neurological disease, and persistent tachyarrhythmia.[id number] 05:36:00 Test Item Value Reference Range Comments MAGNESIUM (BEAKER) (test 2.2 mg/dL 1.6-2.6 Specimen slightly hemolyzed uueu=318) BASIC METABOLIC [id number] 05:36:00 Test Item Value Reference Range Comments SODIUM (BEAKER) (test 140 meq/L 136-145 bebl=957) POTASSIUM (BEAKER) (test 4.2 meq/L 3.5-5.1 Specimen slightly rlzj=442) hemolyzed CHLORIDE (BEAKER) (test 108 meq/L 98-107 sjfc=663) CO2 (BEAKER) (test 21 meq/L 22-29 lzqo=080) BLOOD UREA NITROGEN 30 mg/dL 7-21 (BEAKER) (test gult=358) CREATININE (BEAKER) (test 1.03 mg/dL 0.57-1.25 Specimen slightly nugt=724) hemolyzed GLUCOSE RANDOM (BEAKER) 122 mg/dL 70-105 (test vlba=237) CALCIUM (BEAKER) (test 9.3 mg/dL 8.4-10.2 vryl=144) EGFR (BEAKER) (test 70 mL/min/1.73 sq m ESTIMATED GFR IS NOT bczc=8517) ACCURATE CREATININE CLEARANCE IN PREDICTING GLOMERULAR FILTRATION RATE. ESTIMATED GFR IS NOT APPLICABLE FOR DIALYSIS PATIENTS. CBC W/PLT COUNT & AUTO [id number] 05:15:00 Test Item Value Reference Range Comments WHITE BLOOD CELL COUNT (BEAKER) (test rgcz=112) 5.1 K/ L 3.5-10.5 RED BLOOD CELL COUNT (BEAKER) (test muaj=100) 4.62 M/ L 4.63-6.08 HEMOGLOBIN (BEAKER) (test oenf=825) 14.1 GM/DL 13.7-17.5 HEMATOCRIT (BEAKER) (test ehto=781) 43.3 % 40.1-51.0 MEAN CORPUSCULAR VOLUME (BEAKER) (test vrzn=945) 93.7 fL 79.0-92.2 MEAN CORPUSCULAR HEMOGLOBIN (BEAKER) (test 30.5 pg 25.7-32.2 tawx=766) MEAN CORPUSCULAR HEMOGLOBIN CONC (BEAKER) (test 32.6 GM/DL 32.3-36.5 kndx=997) RED CELL DISTRIBUTION WIDTH (BEAKER) (test 15.9 % 11.6-14.4 prkn=088) PLATELET COUNT (BEAKER) (test mhtw=150) 138 K/CU MM 150-450 MEAN PLATELET VOLUME (BEAKER) (test jybs=181) 10.6 fL 9.4-12.4 NUCLEATED RED BLOOD CELLS (BEAKER) (test 0 /100 WBC 0-0 kwdl=938) NEUTROPHILS RELATIVE PERCENT (BEAKER) (test 59 % fpww=861) LYMPHOCYTES RELATIVE PERCENT (BEAKER) (test 27 % pzac=575) MONOCYTES RELATIVE PERCENT (BEAKER) (test 11 % zvzk=165) EOSINOPHILS RELATIVE PERCENT (BEAKER) (test 1 % sxgj=083) BASOPHILS RELATIVE PERCENT (BEAKER) (test 1 % bczb=579) NEUTROPHILS ABSOLUTE COUNT (BEAKER) (test 3.02 K/ L 1.78-5.38 vtaj=342) LYMPHOCYTES ABSOLUTE COUNT (BEAKER) (test 1.39 K/ L 1.32-3.57 nlen=448) MONOCYTES ABSOLUTE COUNT (BEAKER) (test 0.56 K/ L 0.30-0.82 fwkm=750) EOSINOPHILS ABSOLUTE COUNT (BEAKER) (test 0.07 K/ L 0.04-0.54 qxpd=968) BASOPHILS ABSOLUTE COUNT (BEAKER) (test 0.03 K/ L 0.01-0.08 ibsb=258) IMMATURE GRANULOCYTES-RELATIVE PERCENT (BEAKER) 0 % 0-1 (test vbjq=9710) URINALYSIS W/ [id number] 02:45:00 Test Item Value Reference Range Comments COLOR (BEAKER) (test yqnj=638) Light Yellow CLARITY (BEAKER) (test exho=227) Clear SPECIFIC GRAVITY UA (BEAKER) (test fffp=205) 1.023 1.001-1.035 PH UA (BEAKER) (test dmye=880) 5.0 5.0-8.0 PROTEIN UA (BEAKER) (test oprc=025) Negative Negative GLUCOSE UA (BEAKER) (test agey=509) >1000 mg/dL Negative KETONES UA (BEAKER) (test fdvi=255) Negative Negative BILIRUBIN UA (BEAKER) (test kwzr=448) Negative Negative BLOOD UA (BEAKER) (test eggm=937) Negative Negative NITRITE UA (BEAKER) (test wtze=583) Negative Negative LEUKOCYTE ESTERASE UA (BEAKER) (test ebwd=715) Negative Negative UROBILINOGEN UA (BEAKER) (test uxfi=735) 0.2 mg/dL 0.2-1.0 RBC UA (BEAKER) (test tybh=258) < /HPF WBC UA (BEAKER) (test gzpd=563) < /HPF MUCUS (BEAKER) (test steb=8153) Rare HYALINE CASTS (BEAKER) (test ezru=642) 2 /LPF AMORPHOUS CRYSTALS (BEAKER) (test gvxo=8549) Rare SOURCE(BEAKER) (test tvra=8719) CREATINE KINASE (CK), TOTAL AND [id number] 02:03:00 Test Item Value Reference Range Comments CREATINE KINASE TOTAL (BEAKER) (test rxzz=963) 115 U/L 29-200 CREATINE KINASE-MB (BEAKER) (test fjjx=835) 2.7 ng/mL 0.0-6.6 CREATINE KINASE-MB INDEX (BEAKER) (test rhna=590) 2.3 % CK-MB Reference Range:<6.7 Normal6.7-10.0 Borderline>10.0 AbnormalTROPONIN [id number] 02:03:00 Test Item Value Reference Range Comments TROPONIN I (BEAKER) (test kbfe=756) 0.03 ng/mL 0.00-0.03 Troponin I (TnI) levels [...] acute neurological disease, and persistent tachyarrhythmia.HEPATIC FUNCTION [id number] 01:56: 00 Test Item Value Reference Range Comments TOTAL PROTEIN (BEAKER) (test lpmq=183) 6.3 gm/dL 6.0-8.3 ALBUMIN (BEAKER) (test maqy=8911) 3.9 g/dL 3.5-5.0 BILIRUBIN TOTAL (BEAKER) (test yvmq=916) 0.3 mg/dL 0.2-1.2 BILIRUBIN DIRECT (BEAKER) (test fbam=436) 0.2 mg/dL 0.1-0.5 ALKALINE PHOSPHATASE (BEAKER) (test xyej=148) 51 U/L 40-150 AST (SGOT) (BEAKER) (test clwu=132) 17 U/L 5-34 ALT (SGPT) (BEAKER) (test jwmu=368) 13 U/L 6-55 CREATINE KINASE (CK), TOTAL AND [id number] 22:41:00 Test Item Value Reference Range Comments CREATINE KINASE TOTAL (BEAKER) (test cuuh=086) 132 U/L 29-200 CREATINE KINASE-MB (BEAKER) (test axpe=626) 3.1 ng/mL 0.0-6.6 CREATINE KINASE-MB INDEX (BEAKER) (test doqa=431) 2.3 % CK-MB Reference Range:<6.7 Normal6.7-10.0 Borderline>10.0 AbnormalTROPONIN [id number] 22:41:00 Test Item Value Reference Range Comments TROPONIN I (BEAKER) (test xlcv=501) 0.02 ng/mL 0.00-0.03 Troponin I (TnI) levels [...] NATRIURETIC PEPTIDE (BEAKER) (test 157 pg/mL 0-100 debw=658) RAD, CHEST, 1 VIEW, NON [id number] 22:37:00Reason for exam:-> PALPITATIONSShould this be performed [...] No focal pulmonary consolidation. Signed: Magnolia Montes [facility]Re[facility] Verified Date/Time: 09/09/2017 22:37:39 Reading Location: [address] Reading Room BASIC METABOLIC [id number] 22:36:00 Test Item Value Reference Range Comments SODIUM (BEAKER) (test 136 meq/L 136-145 aoui=492) POTASSIUM (BEAKER) (test 4.2 meq/L 3.5-5.1 Specimen slightly iiqg=767) hemolyzed CHLORIDE (BEAKER) (test 104 meq/L 98-107 zine=576) CO2 (BEAKER) (test 22 meq/L 22-29 asyp=407) BLOOD UREA NITROGEN 32 mg/dL 7-21 (BEAKER) (test mjin=078) CREATININE (BEAKER) (test 1.18 mg/dL 0.57-1.25 Specimen slightly tidc=538) hemolyzed GLUCOSE RANDOM (BEAKER) 150 mg/dL 70-105 (test hyak=994) CALCIUM (BEAKER) (test 9.7 mg/dL 8.4-10.2 ghve=890) EGFR (BEAKER) (test mL/min/1.73 sq m INSUFFICIENT CLINICAL DATA cjwj=3742) TO CALCULATE ESTIMATED GFR. [id number] 22:34:00 Test Item Value Reference Range Comments MAGNESIUM (BEAKER) (test 2.4 mg/dL 1.6-2.6 Specimen slightly hemolyzed ujlx=710) CBC W/PLT COUNT & AUTO [id number] 22:10:00 Test Item Value Reference Range Comments WHITE BLOOD CELL COUNT (BEAKER) (test vxjv=839) 7.1 K/ L 3.5-10.5 RED BLOOD CELL COUNT (BEAKER) (test tqpi=425) 4.40 M/ L 4.63-6.08 HEMOGLOBIN (BEAKER) (test trnv=256) 13.8 GM/DL 13.7-17.5 HEMATOCRIT (BEAKER) (test fszc=107) 41.4 % 40.1-51.0 MEAN CORPUSCULAR VOLUME (BEAKER) (test kndz=507) 94.1 fL 79.0-92.2 MEAN CORPUSCULAR HEMOGLOBIN (BEAKER) (test 31.4 pg 25.7-32.2 ufia=500) MEAN CORPUSCULAR HEMOGLOBIN CONC (BEAKER) (test 33.3 GM/DL 32.3-36.5 yqrv=255) RED CELL DISTRIBUTION WIDTH (BEAKER) (test 15.9 % 11.6-14.4 hvyl=449) PLATELET COUNT (BEAKER) (test yedo=295) 159 K/CU MM 150-450 MEAN PLATELET VOLUME (BEAKER) (test yskx=113) 10.9 fL 9.4-12.4 NUCLEATED RED BLOOD CELLS (BEAKER) (test 0 /100 WBC 0-0 smby=824) NEUTROPHILS RELATIVE PERCENT (BEAKER) (test 69 % lhgw=479) LYMPHOCYTES RELATIVE PERCENT (BEAKER) (test 22 % tzes=858) MONOCYTES RELATIVE PERCENT (BEAKER) (test 8 % xhsn=644) EOSINOPHILS RELATIVE PERCENT (BEAKER) (test 1 % qjch=700) BASOPHILS RELATIVE PERCENT (BEAKER) (test 0 % wbeb=914) NEUTROPHILS ABSOLUTE COUNT (BEAKER) (test 4.89 K/ L 1.78-5.38 mxog=983) LYMPHOCYTES ABSOLUTE COUNT (BEAKER) (test 1.54 K/ L 1.32-3.57 jajh=031) MONOCYTES ABSOLUTE COUNT (BEAKER) (test 0.57 K/ L 0.30-0.82 yowu=154) EOSINOPHILS ABSOLUTE COUNT (BEAKER) (test 0.07 K/ L 0.04-0.54 qvlc=467) BASOPHILS ABSOLUTE COUNT (BEAKER) (test 0.03 K/ L 0.01-0.08 drjb=552) IMMATURE GRANULOCYTES-RELATIVE PERCENT (BEAKER) 0 % 0-1 (test zehm=9753)
[2017-11-30] MEDS ORDERED: NA CHLORIDE 0.9% 1,000 ML ONE (07:01)
[2017-11-30] MEDS ORDERED: PROPOFOL 200 MG/20 ML VIAL IV ONE (08:06)
--- NOTE | 2017-11-30 08:32 | ENDO RPT ---
[address], [address] EGD PROCEDURE REPORT EXAM DATE: 11/30/2017 PATIENT NAME: Cuco Escobar MR#: [id number] BIRTHDATE: 1940 ATTENDING: Levi [address] Dr STATUS: outpatient LEGAL INTERN: Aurea Gonzáles RN and Zaina Morel INDICATIONS: The patient is a 77 yr old Male here for an EGD due to mid epigastric abdominal pain, bloating, and belching PROCEDURE PERFORMED: EGD with biopsy MEDICATIONS: Per Anesthesia. TOPICAL ANESTHETIC: none CONSENT: The patient understands the risks and benefits of the procedure and understands that these risks include, but are not limited to: sedation, allergic reaction, infection, perforation and/or bleeding. Alternative means of evaluation and treatment include, among others: physical exam, x-rays, and/or surgical intervention. The patient elects to proceed with this endoscopic procedure. DESCRIPTION OF PROCEDURE: During intra-op preparation period all mechanical medical equipment was checked for proper function. Hand hygiene and appropriate measures for infection prevention was taken. Procedure, possible complications, and alternatives including but not limited to the possibility of bleeding, perforation, tear, infection, sepsis, need for surgery, need for blood transfusion, and anesthesia related complications were explained to the patient. After the risks, benefits and alternatives of the procedure were thoroughly explained, Informed consent was verified, confirmed and timeout was successfully executed by the treatment team. The patient was placed in the left lateral position. The patient was anesthetized with topical anesthesia. Through the anesthetized oropharyngeal area, the scope was passed without any difficulty. The [id number] ([id number]) endoscope was introduced through the mouth and advanced to the third portion of the duodenum. Retroflexed views revealed no abnormalities. The gastroscope was then slowly withdrawn and removed. Moderate gastritis was found in the antrum. Multiple biopsies were obtained and sent to pathology. ADVERSE EVENTS: There were no complications. IMPRESSIONS: Moderate gastritis in the antrum, s/p biopsies RECOMMENDATIONS: 1. await biopsy results 2. acid suppression therapy REPEAT EXAM: Levi Morgan Dr eSigned: Levi Morgan Dr 11/30/2017 8:32 AM cc: CPT CODES: ICD9 CODES: PATIENT NAME: Cuco EscobarAshanti MR#: [id number]
== END 2017-11-30 08:57 | disposition home or self-care (01) ==
LOC: ENDO 06:51
PROVIDERS: ATTEND Internal Medicine Gastroenterology
PROC: 0DB68ZX Excision of Stomach, Via Natural or Artificial Opening Endoscopic, Diagnostic (ICD-10-PCS; principal; 2017-11-30 08:00)
DX: K29.50 Unspecified chronic gastritis without bleeding (principal); K50.90 Crohn's disease, unspecified, without complications; E11.9 Type 2 diabetes mellitus without complications; I48.91 Unspecified atrial fibrillation; I25.10 Atherosclerotic heart disease of native coronary artery without angina pectoris; I50.9 Heart failure, unspecified; I25.2 Old myocardial infarction; Z85.038 Personal history of other malignant neoplasm of large intestine; Z90.49 Acquired absence of other specified parts of digestive tract; Z95.810 Presence of automatic (implantable) cardiac defibrillator; Z95.1 Presence of aortocoronary bypass graft; Z87.891 Personal history of nicotine dependence; Z79.82 Long term (current) use of aspirin
CPT/HCPCS: 43239; 82962; 88305; 88312; J7030

== ENCOUNTER 2018-07-01 07:48 | Observation (INO) | payer OTHER ==
--- OUTSIDE RECORDS SUMMARY | 2018-07-01 07:51 | XMS REPORT | Clinical Summary ---
:1940 Author Organization [facility] Address [address] [place] [address] Care Team Providers Name Role Phone Dwight Primary Care Provider Allergies No Known Allergies Medications Medication Sig Dispensed Refills Start Date End Date Status carvedilol (COREG) Take 12.5 mg by 0 Active 12.5 MG tablet mouth 2 (two) times daily with breakfast and dinner. lisinopril Take 10 mg by 0 Active (PRINIVIL,ZESTRIL) mouth daily. 10 MG tablet SITagliptin Take 100 mg by 0 Active (JANUVIA) 25 MG mouth daily . tablet aspirin 81 MG EC Take 81 mg by 0 Active tablet mouth daily. glimepiride (AMARYL) Take 2 mg by 0 Active 2 MG tablet mouth 2 (two) times daily. spironolactone Take 25 mg by 0 Active (ALDACTONE) 25 MG mouth daily tablet Tuesday- Tuesday and tuesday . canagliflozin Take 100 mg by 0 Active (INVOKANA) 100 mg mouth daily. tablet mesalamine (PENTASA) Take 500 mg by 0 Active 250 mg CR mouth 4 (four) capsuleIndications: times daily Crohn's Disease Repaced by Babalazide [address] 0.4 mg 0 Active (NITROSTAT) 0.4 MG under the SL tablet tongue every 5 (five) minutes as needed for Chest pain (chest pain) Put 1 pill under tongue every 5min as needed for chest pain.No more than 3 doses in 15min.Call 911 if pain is unrelieved 5min after 1st dose . balsalazide Take 1,500 mg 0 Active (COLAZAL) 750 mg by mouth 2 capsule (two) times daily. colestipol Take 2 g by 0 Active (COLESTID) 5 gram mouth 2 (two) [...] daily. furosemide (LASIX) Take 20 mg by 0 Discontinued 20 MG tablet mouth 2 (two) 8 times daily. isosorbide Take 1 tablet 60 tablet 11 09/13/2017 Discontinued mononitrate (10 mg total) 8 (ISMO,MONOKET) 10 MG by mouth 2 tablet (two) times daily. 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 Last Filed Vital Signs Vital Sign Reading Time Taken Blood Pressure 109/61 09/14/2017 10:22 AM TIMBER BUYER Pulse 56 09/14/2017 7:30 AM TIMBER BUYER Temperature 36.4 C (97.6 F) 09/14/2017 7:30 AM TIMBER BUYER Respiratory Rate 18 09/14/2017 7:30 AM TIMBER BUYER Oxygen Saturation 96% 09/14/2017 7:30 AM TIMBER BUYER Inhaled Oxygen Concentration - - Weight 90.7 kg (200 lb) 09/14/2017 7:30 AM TIMBER BUYER Height 182.9 cm (6') 09/09/2017 9:43 PM TIMBER BUYER Body Mass Index 27.12 09/14/2017 7:30 AM TIMBER BUYER Plan of Treatment Not on file Procedures Procedure Name Priority Date/Time Associated Comments Diagnosis RHYTHM STRIP - SCAN 10/18/2017 10:53 AM CDT CARDIAC CATH REPORT - 09/15/2017 3:40 SCAN PM TIMBER BUYER ARRYTHMIA IMPLANT 09/15/2017 1:40 REPORT - SCAN PM TIMBER BUYER RHYTHM STRIP - SCAN 09/15/2017 1:40 PM TIMBER BUYER VASCULAR DIAGRAM -SCAN 09/15/2017 1:40 PM TIMBER BUYER POCT-GLUCOSE METER Routine 09/14/2017 7:32 Results for this AM TIMBER BUYER procedure are in the results section. XR CHEST 1 VIEW Routine 09/14/2017 4:45 Results for this PORTABLE/BEDSIDE AM TIMBER BUYER procedure are in the results section. CBC W/PLT COUNT & AUTO Routine 09/14/2017 4:41 Results for this DIFFERENTIAL AM TIMBER BUYER procedure are in the results section. CBC W/PLT COUNT & AUTO Routine 09/14/2017 4:41 Results for this DIFFERENTIAL AM TIMBER BUYER procedure are in the results section. MAGNESIUM Routine 09/14/2017 4:41 Results for this AM TIMBER BUYER procedure are in the results section. BASIC METABOLIC PANEL Routine 09/14/2017 4:41 Results for this (7) AM TIMBER BUYER procedure are in the results section. POCT-GLUCOSE METER Routine 09/13/2017 11:33 Results for this PM TIMBER BUYER procedure are in the results section. POCT-GLUCOSE METER Routine 09/13/2017 6:29 Results for this PM TIMBER BUYER procedure are in the results section. POCT-GLUCOSE METER Routine 09/13/2017 4:34 Results for this PM TIMBER BUYER procedure are in the results section. ARRYTHMIA IMPLANT 09/13/2017 2:40 REPORT - SCAN PM TIMBER BUYER POCT-GLUCOSE METER Routine 09/13/2017 12:49 Results for this PM TIMBER BUYER procedure are in the results section. XR CHEST 1 VIEW Routine 09/13/2017 5:43 Results for this PORTABLE/BEDSIDE AM TIMBER BUYER procedure are in the results section. CBC W/PLT COUNT & AUTO Routine 09/13/2017 3:58 Results for this DIFFERENTIAL AM [employer]BER BUYER procedure are in the results section. CBC W/PLT COUNT & AUTO Routine 09/13/2017 3:58 Results for this DIFFERENTIAL AM TIMBER BUYER procedure are in the results section. MAGNESIUM Routine 09/13/2017 3:58 Results for this AM TIMBER BUYER procedure are in the results section. BASIC METABOLIC PANEL Routine 09/13/2017 3:58 Results for this (7) AM TIMBER BUYER procedure are in the results section. POCT-GLUCOSE METER Routine 09/12/2017 7:39 Results for this PM TIMBER BUYER procedure are in the results section. L CATH & PCI 09/12/2017 2:42 chest pain PM TIMBER BUYER POCT-GLUCOSE METER Routine 09/12/2017 2:25 Results for this PM TIMBER BUYER procedure are in the results section. ECHOCARDIOGRAM REPORT - 09/12/2017 1:20 SCAN PM TIMBER BUYER POCT-GLUCOSE METER Routine 09/12/2017 8:01 Results for this AM TIMBER BUYER procedure are in the results section. CBC W/PLT COUNT & AUTO Routine 09/12/2017 4:51 Results for this DIFFERENTIAL AM TIMBER BUYER procedure are in the results section. CBC W/PLT COUNT & AUTO Routine 09/12/2017 4:51 Results for this DIFFERENTIAL AM TIMBER BUYER procedure are in the results section. MAGNESIUM Routine 09/12/2017 4:51 Results for this AM TIMBER BUYER procedure are in the results section. BASIC METABOLIC PANEL Routine 09/12/2017 4:51 Results for this (7) AM TIMBER BUYER procedure are in the results section. MAGNESIUM Routine 09/11/2017 11:04 Results for this PM TIMBER BUYER procedure are in the results section. BASIC METABOLIC PANEL Routine 09/11/2017 11:04 Results for this (7) PM TIMBER BUYER procedure are in the results section. POCT-GLUCOSE METER Routine 09/11/2017 9:46 Results for this PM TIMBER BUYER procedure are in the results section. POCT-GLUCOSE METER Routine 09/11/2017 5:08 Results for this PM TIMBER BUYER procedure are in the results section. POCT-GLUCOSE METER Routine 09/11/2017 11:52 Results for this AM TIMBER BUYER procedure are in the results section. POCT-GLUCOSE METER Routine 09/11/2017 7:54 Results for this AM TIMBER BUYER procedure are in the results section. CBC W/PLT COUNT & AUTO Routine 09/11/2017 3:35 Results for this DIFFERENTIAL AM TIMBER BUYER procedure are in the results section. APTT Routine 09/11/2017 3:35 Results for this AM TIMBER BUYER procedure are in the results section. PROTHROMBIN TIME/INR Routine 09/11/2017 3:35 Results for this AM TIMBER BUYER procedure are in the results section. CBC W/PLT COUNT & AUTO Routine 09/11/2017 3:35 Results for this DIFFERENTIAL AM TIMBER BUYER procedure are in the results section. MAGNESIUM Routine 09/11/2017 3:35 Results for this AM TIMBER BUYER procedure are in the results section. BASIC METABOLIC PANEL Routine 09/11/2017 3:35 Results for this (7) AM TIMBER BUYER procedure are in the results section. POCT-GLUCOSE METER Routine 09/10/2017 9:20 Results for this PM [employer]BER BUYER procedure are in the results section. POCT-GLUCOSE METER Routine 09/10/2017 4:55 Results for this PM [employer]BER BUYER procedure are in the results section. CREATINE KINASE (CK), STAT 09/10/2017 4:28 Results for this TOTAL AND MB PM TIMBER BUYER procedure are in the results section. TROPONIN I STAT 09/10/2017 4:28 Results for this PM [employer]BER BUYER procedure are in the results section. B-TYPE NATRIURETIC Routine 09/10/2017 4:27 Results for this FACTOR (BNP) PM TIMBER BUYER procedure are in the results section. URINALYSIS W/ Routine 09/10/2017 4:27 Results for this MICROSCOPIC PM [employer]BER BUYER procedure are in the results section. 2D ECHO W/ DOPPLER BRENDA 09/10/2017 2:49 Results for this (CW/PW/COLOR) PM TIMBER BUYER procedure are in the results section. CREATINE KINASE (CK), STAT 09/10/2017 8:15 Results for this TOTAL AND MB AM TIMBER BUYER procedure are in the results section. TROPONIN I STAT 09/10/2017 8:15 Results for this AM TIMBER BUYER procedure are in the results section. CBC W/PLT COUNT & AUTO Routine 09/10/2017 4:57 Results for this DIFFERENTIAL AM TIMBER BUYER procedure are in the results section. CBC W/PLT COUNT & AUTO Routine 09/10/2017 4:57 Results for this DIFFERENTIAL AM TIMBER BUYER procedure are in the results section. MAGNESIUM Routine 09/10/2017 4:57 Results for this AM TIMBER BUYER procedure are in the results section. BASIC METABOLIC PANEL Routine 09/10/2017 4:57 Results for this (7) AM [employer]BER BUYER procedure are in the results section. URINALYSIS W/ Routine 09/10/2017 1:11 Results for this MICROSCOPIC AM TIMBER BUYER procedure are in the results section. CREATINE KINASE (CK), STAT 09/10/2017 1:11 Results for this TOTAL AND MB AM TIMBER BUYER procedure are in the results section. TROPONIN I STAT 09/10/2017 1:11 Results for this AM TIMBER BUYER procedure are in the results section. HEPATIC FUNCTION PANEL Routine 09/10/2017 1:11 Results for this AM TIMBER BUYER procedure are in the results section. ED ECG INTERPRETATION Routine 09/09/2017 11:22 Results for this PM TIMBER BUYER procedure are in the results section. ECG 12-LEAD Routine 09/09/2017 10:32 PM TIMBER BUYER Procedure Note - Interface, External Ris In - 09/09/2017 10:45 PM TIMBER BUYER Ventricular Rate 59 BPM Atrial Rate 59 BPM P-R Interval 174 ms QRS Duration 160 ms Q-T Interval 504 ms QTC Calculation(Bazett) 498 ms P [place] 11 degrees R [place] -20 degrees T [place] -3 degrees Sinus bradycardia Right bundle branch block Left ventricular hypertrophy with QRS widening Inferior infarct , age undetermined Anterolateral infarct , age undetermined Abnormal ECG No previous ECGs available ECG 12-LEAD STAT 09/09/2017 10:32 PM TIMBER BUYER XR CHEST 1 VIEW STAT 09/09/2017 10:03 PM TIMBER BUYER Results for this PORTABLE/BEDSIDE procedure are in the results section. CBC W/PLT COUNT & AUTO STAT 09/09/2017 9:47 PM TIMBER BUYER Results for this DIFFERENTIAL procedure are in the results section. CREATINE KINASE (CK), TOTAL STAT 09/09/2017 9:47 PM TIMBER BUYER Results for this AND MB procedure are in the results section. TROPONIN I STAT 09/09/2017 9:47 PM TIMBER BUYER MAGNESIUM STAT 09/09/2017 9:47 PM TIMBER BUYER CBC W/PLT COUNT & AUTO STAT 09/09/2017 9:47 PM TIMBER BUYER Results for this DIFFERENTIAL procedure are in the results section. B-TYPE NATRIURETIC FACTOR STAT 09/09/2017 9:47 PM TIMBER BUYER Results for this (BNP) procedure are in the results section. BASIC METABOLIC PANEL (7) STAT 09/09/2017 9:47 PM TIMBER BUYER ECG 12-LEAD Routine 09/09/2017 9:18 PM TIMBER BUYER after 06/30/2017 Results RHYTHM STRIP - SCAN (10/18/2017 10:53 AM CDT)Only the most recent of2 resultswithin the time period is included. Narrative Performed At CARDIAC CATH REPORT - SCAN (09/15/2017 3:40 PM TIMBER BUYER) Narrative Performed At ARRYTHMIA IMPLANT REPORT - SCAN (09/15/2017 1:40 PM TIMBER BUYER)Only the most recent of2 resultswithin the time period is included. Narrative Performed At VASCULAR DIAGRAM -SCAN (09/15/2017 1:40 PM TIMBER BUYER) Narrative Performed At POC-Glucose meter (09/14/2017 7:32 AM TIMBER BUYER)Only the most recent of14 resultswithin the time period is included. POC-Glucose Meter 214 (H)Comment: TESTED AT 70 - 110 mg/dL [facility] [address] [facility] [id number] Specimen Blood Performing Organization Address City/State/Zipcode Phone Number [address] [phone] CENTER XR chest 1 view portable / bedside (09/14/2017 4:45 AM TIMBER BUYER)Only the most recent of3 resultswithin the time period is included. Narrative Performed At FINAL REPORT [facility] Portable chest CLINICAL HISTORY: Short of breath Comparison:09/13/2017. FINDINGS:The cardiac silhouette is enlarged.The patient is status post sternotomy. A pacer device is seen. There are mild interstitial markings but no definite focal opacity, pleural effusion or pneumothorax. Degenerative changes are noted. IMPRESSION: No significant change. Signed: Gonzalo Rose MD Report Verified Date/Time:09/14/2017 09:52:44 Reading Location: [facility] Diagnostic Imaging Reading Room - [place] [address] Procedure Note Interface, External Ris In - 09/14/2017 9:54 AM TIMBER BUYER FINAL REPORT Portable chest CLINICAL HISTORY: Short of breath Comparison: 09/13/2017. FINDINGS: The cardiac silhouette is enlarged. The patient is status post sternotomy. A pacer device is seen. There are mild interstitial markings but no definite focal opacity, pleural effusion or pneumothorax. Degenerative changes are noted. IMPRESSION: No significant change. Signed: Gonzalo Rose MD Report Verified Date/Time: 09/14/2017 09:52:44 Reading Location: [facility] Diagnostic Imaging Reading Room - [place] [address] Performing Organization Address City/State/Zipcode Phone Number GE RIS CBC with platelet count + automated diff (09/14/2017 4:41 AM TIMBER BUYER)Only the most recent of6 resultswithin the time period is included. WBC 4.7 3.5 - 10.5 K/L [facility] RBC 4.57 (L) 4.63 - 6.08 M/L [facility] Hemoglobin 14.2 13.7 - 17.5 GM/DL [facility] Hematocrit 42.3 40.1 - 51.0 % [facility] MCV 92.6 (H) 79.0 - 92.2 fL [facility] MCH 31.1 25.7 - 32.2 pg [facility] MCHC 33.6 32.3 - 36.5 GM/DL [facility] RDW 15.3 (H) 11.6 - 14.4 % [facility] Platelets 126 (L) 150 - 450 K/CU MM [facility] MPV 10.5 9.4 - 12.4 fL [facility] nRBC 0 0 - 0 /100 WBC [facility] % Neutros 61 % [facility] % Lymphs 26 % [facility] % Monos 10 % [facility] % Eos 2 % [facility] % Baso 1 % [facility] # Neutros 2.83 1.78 - 5.38 K/L [facility] # Lymphs 1.24 (L) 1.32 - 3.57 K/L [facility] # Monos 0.48 0.30 - 0.82 K/L [facility] # Eos 0.10 0.04 - 0.54 K/L [facility] # Baso 0.03 0.01 - 0.08 K/L [facility] Immature Granulocytes-Relative 0 0 - 1 % [facility] Specimen Blood Performing Organization Address City/State/Zipcode Phone Number [address] [address] CENTER Magnesium (09/14/2017 4:41 AM TIMBER BUYER)Only the most recent of7 resultswithin the time period is included. Magnesium 1.9 1.6 - 2.6 mg/dL [facility] Specimen Blood Performing Organization Address City/[facility]/Zipcode Phone Number [address] [address] CENTER Basic metabolic panel (09/14/2017 4:41 AM TIMBER BUYER)Only the most recent of7 resultswithin the time period is included. Sodium 137 136 - 145 meq/L [facility] Potassium 4.3 3.5 - 5.1 meq/L [facility] Chloride 101 98 - 107 meq/L [facility] CO2 25 22 - 29 meq/L [facility] BUN 31 (H) 7 - 21 mg/dL [facility] Creatinine 1.13 0.57 - 1.25 mg/dL [facility] Glucose 180 (H) 70 - 105 mg/dL [facility] Calcium 9.9 8.4 - 10.2 mg/dL [facility] EGFR 63Comment: ESTIMATED GFR IS mL/min/1.73 sq m [facility] NOT ACCURATE CREATININE [facility] CLEARANCE IN PREDICTING GLOMERULAR FILTRATION RATE. ESTIMATED GFR IS NOT APPLICABLE FOR DIALYSIS PATIENTS. Specimen Blood Performing Organization Address City/State/Zipcode Phone Number [address] [address] CENTER ECHOCARDIOGRAM REPORT - SCAN (09/12/2017 1:20 PM TIMBER BUYER) Narrative Performed At aPTT (09/11/2017 3:35 AM TIMBER BUYER) PTT 26.5 22.5 - 36.0 seconds [facility] Specimen Blood - Arm, Right Performing Organization Address City/[facility] Phone Number [address] [address] CENTER Prothrombin time/INR (09/11/2017 3:35 AM TIMBER BUYER) Protime 14.4 11.7 - 14.7 seconds [facility] INR 1.1 <=5.9 [facility] Specimen Blood - Arm, Right Narrative Performed At [facility] RECOMMENDED COUMADIN/WARFARIN INR THERAPY RANGES STANDARD DOSE: 2.0 - 3.0 Includes: PROPHYLAXIS for venous thrombosis, systemic embolization; TREATMENT for venous thrombosis and/or pulmonary embolus. HIGH RISK: Target INR is 2.5-3.5 for patients with mechanical heart valves. Performing Organization Address City/[facility] Cent[facility]ode Phone Number [address] [address] [phone] CENTER Troponin I (09/10/2017 4:28 PM TIMBER BUYER)Only the most recent of4 resultswithin the time period is included. Troponin I 0.03 0.00 - 0.03 ng/mL [facility] Specimen Blood Narrative Performed At [facility] Troponin I (TnI) levels must be interpreted [...] acidosis, acute neurological disease, and persistent tachyarrhythmia. Performing Organization Address City/[facility] Cent[facility] Phone Number [address] [address] [phone] [place] Creatine Kinase (CK), Total and MB (09/10/2017 4:28 PM TIMBER BUYER)Only the most recent of4 resultswithin the time period is included. Total CK 105 29 - 200 U/L [facility] CK-MB 2.6 0.0 - 6.6 ng/mL [facility] MB Relative Index 2.5 % [facility] Specimen Blood Narrative Performed At CK-MB Reference Range: [facility] <6.7Normal 6.7-10.0Borderline >10.0 Abnormal Performing Organization Address City/[facility] Phone Number [address] [address] [place] Urinalysis w/ Microscopic (09/10/2017 4:27 PM TIMBER BUYER)Only the most recent of2 resultswithin the time period is included. Color, UA Light Yellow [facility] Clarity, UA Clear [facility] Specific Dozier, UA 1.009 1.001 - 1.035 [facility] pH, UA 5.0 5.0 - 8.0 [facility] Protein, UA Negative Negative [facility] Glucose, UA >1000 mg/dL (A) Negative [facility] Ketones, UA Negative Negative [facility] Bilirubin, UA Negative Negative [facility] Blood, UA Negative Negative [facility] Nitrite, UA Negative Negative [facility] Leukocytes, UA Negative Negative [facility] Urobilinogen, UA 0.2 0.2 - 1.0 mg/dL [facility] RBC, UA 1 /HPF [facility] WBC, UA <1 /HPF [facility] Hyaline Casts, UA 2 /LPF [facility] Specimen Source Urine, Voided [facility] Specimen Urine - Urine, Voided Performing Organization Address City/[facility] [place] [address] [phone] CENTER B-type Natriuretic Factor (BNP) (09/10/2017 4:27 PM TIMBER BUYER)Only the most recent of2 resultswithin the time period is included. BNP 246 (H) 0 - 100 pg/mL [facility] Specimen Blood Performing Organization Address City/[facility]/Zipcode Phone Number [address] [address] CENTER Transthoracic 2D echo w/ doppler (cw/pw/color) (09/10/2017 2:49 PM TIMBER BUYER) Ejection Fraction [facility] PeeractiveESSON CPACS Narrative Performed At Transthoracic Echocardiography Report (TTE) [facility] Capsule TechCKESSON CPACS Demographics Patient Name TONY VERDUZCO Date of Study09/10/2017 [id number] Gender Male Visit Number [id number] Race Unknown [id number] [id number] Number Date of Birth1940 Referring PhysicianAnjana Schaffer Age77 year(s) SonographerLashae Keane AnalystAriadna Interpreting Jonah P. Navarijo, [place] PhysicianMD Procedure Type of Study TTE procedure:2DECHO W [...] Ventricle The LV endocardium is adequately visualized. Th e left ventricle is chamber size (by vol index) is severely enlarged (male - LVED vol >100ml/m2). LV septal thickness is severely increased (>1.6cm). LV posterior wall thickness is mildly increased (1 .2-1.4cm) . The following segment(s) appear se verely hypokinetic: lateral, inferolateral and in ferior . Global LV systolic function mildly re duced . LVEF by Morgan's method of disk as sessment is mildly reduced (40-44%) . LV diastolic function is indeterminate. Left AtriumLA size is severely enlarged (>48 ml/m2) . Right VentricleRV chamber size is normal . Gl obal RV systolic function is normal . Right Atrium RA size is normal. Atrial SeptumNormal interatrial septum by available views. Aortic Valve Mild AoV cusp thickening. Mi ld AoV cusp calcification. Mitral Valve Mild MV leaflet thickening. At least mild mitral regurgitation. MR severity is difficult to determine due to poor ac oustic windows . Th e submitral apparatus appears mildly thickened . Tricuspid ValveNormal TV structure and function. Un able to estimate peak systolic PA pressure; in adequate TR velocity signal. Pulmonic Valve Normal PV structure and function. AortaAortic root size (SInus of Valsalva diameter) is mi ldly dilated . PericardiumNo pericardial effusion is visualized. IVC/SVC/PA/PV/PleuralThe inferior vena cava is not well visualized. Th e estimated RA pressure by IVC dynamics in determinate . Chambers/Structures Left Atrium LA Dimension: 5.79 cmLA Area: 39.62 cm^2 LA Volume: 162.21 ml LA Vol. Index: 76 ml/m^2 Left Ventricle LVIDd: 6.26 cm LVIDs: 4.73 cm LV Septum Diastolic: 2.03 cm LV PW Diastolic: 1.42 cm LV FS: 24.4 % LVEDV Morgan's:231.55 ml LVESV Morgan's:132.78 mlLVEDVI: 109 ml/m^2 LVEF Morgan's: 42.7 % LVESVI: [...] External Ris In - 09/12/2017 12:56 PM TIMBER BUYER Transthoracic Echocardiography Report (TTE) Demographics Patient Name TONY VERDUZCO Date of Study 09/10/2017 Gender Male Visit Number [id number] Race Unknown Room Number 7303 Number Date of 1940 Referring Physician Anjana Schaffer Age 77 year(s) Conduit Helper Lashae Keane Naphthalene Still Operator Jayleen Interpreting Maik Ba Physician Procedure Type of Study TTE procedure:2DECHO [...] CO: 5.56 l/min LVOT CI: 2.61 l/min/m^2 Performing Organization Address City/[facility] Phone Number [facility] MKCKESSON CPA Hepatic function panel (09/10/2017 1:11 AM TIMBER BUYER) Protein, Total 6.3 6.0 - 8.3 gm/dL [facility] Albumin 3.9 3.5 - 5.0 g/dL [facility] Total Bilirubin 0.3 0.2 - 1.2 mg/dL [facility] Bilirubin, Direct 0.2 0.1 - 0.5 mg/dL [facility] Alkaline Phosphatase 51 40 - 150 U/L [facility] AST 17 5 - 34 U/L [facility] ALT 13 6 - 55 U/L [facility] Specimen Blood Performing Organization Address City/[facility] Phone Number [facility] [address] [place] [address] CENTER ED ECG Interpretation (09/09/2017 11:22 PM [employer]BER BU[employer]ER) Narrative Performed At Anjana Schaffer MD 09/09/2017 11:22 PM ECG/EKG Interpretation Date/Time: [...] elevation in lead(s) aVR. T waves abnormal. [place] is right. Q-waves are present in lead(s) I, II, III and aVF. Clinical Impression: abnormal ECGECG reviewed and does not meet STEMI criteria. ECG 12 lead (09/09/2017 10:32 PM [employer] BU[employer]ER)Only the most recent of2 resultswithin the time period is included. Narrative Performed At Ventricular Rate 59 BPM GE MUSE Atrial Rate 59 BPM P-R Interval 174 ms QRS Duration 160 ms Q-T Interval 504 ms QTC Calculation(Bazett) 498 ms P [place] 11 degrees R [place] -20 degrees T [place] -3 degrees Sinus bradycardia Right bundle branch block Left ventricular hypertrophy with QRS widening Inferior infarct , age undetermined Anterolateral infarct , age undetermined Abnormal ECG No previous ECGs available Confirmed by MD DELAROSA JOSEPH P ([id number]) on 09/11/2017 7:34:21 AM Procedure Note Interface, External Ris In - 09/11/2017 7:34 AM [employer] BU[employer]ER Ventricular Rate 59 BPM Atrial Rate 59 BPM P-R Interval 174 ms QRS Duration 160 ms Q-T Interval 504 ms QTC Calculation(Bazett) 498 ms P [place] 11 degrees R [place] -20 degrees T [place] -3 degrees Sinus bradycardia Right bundle branch block Left ventricular hypertrophy with QRS widening Inferior infarct , age undetermined Anterolateral infarct , age undetermined Abnormal ECG No previous ECGs available Confirmed by MD DELAROSA JOSEPH P ([id number]) on 09/11/2017 7:34:21 AM Performing Organization Address City/State/Zipcode Phone Number GE MUSE after 06/30/2017 Insurance Payer Benefit Plan / Group Subscriber ID Type Phone Address MEDICARE MEDICARE A B xxxxxxxxxx Medicare MCR GENERIC MEDICARE xxxxxxxxxx Med[employer]ap SUPPLEMENT/INDIVIDUAL SUPPLEMENT Advance Directives For more information, please contact:[address] [phone] Code Status Date Activated Date Inactivated Comments Full Code 09/10/2017 3:06 PM 09/14/2017 2:13 PM This code status was determined by: Patient Full Code 09/10/2017 12:50 AM 09/10/2017 3:06 PM This code status was determined by: Patient
--- OUTSIDE RECORDS SUMMARY | 2018-07-01 07:51 | XMS REPORT ---
:1940 [facility] Address [address] [place] [address] Dr. Hoffman. [address] [place] [address] Care Team Providers Name Role Phone ZHENG [...] VIEW, NON DEPT exam:->SOBShould this be ID: [id number] Portable performed at the chest CLINICAL HISTORY: bedside?->Yes Short of breath Comparison: 09/13/2017. FINDINGS: The cardiac silhouette is enlarged. The patient is status post sternotomy. A pacer device is seen. There are mild interstitial markings but no definite focal opacity, pleural effusion or pneumothorax. Degenerative changes are noted. IMPRESSION: No significant change. Signed: oGnzalo Rose Verified Date/Time: 09/14/2017 09:52:44 Reading Location: [facility] Diagnostic Imaging Reading Room - [place] [address] -GLUCOSE METER 2017-09-14 07:56:00 Test Item Value Reference Range Comments POC-GLUCOSE METER (BEAKER) (test 214 mg/dL 70-110 TESTED AT [address] eneg=8248) [facility] [address] POCT-GLUCOSE [id number] 07:17:00 Test Item Value Reference Range Comments POC-GLUCOSE METER (BEAKER) 184 mg/dL 70-110 TESTED AT [address] (test lpbd=1903) [facility] [address] [id number] 05:37:00 Test Item Value Reference Range Comments MAGNESIUM (BEAKER) (test fmba=002) 1.9 mg/dL 1.6-2.6 BASIC METABOLIC [id number] 05:37:00 Test Item Value Reference Range Comments SODIUM (BEAKER) (test 137 meq/L 136-145 spjx=820) POTASSIUM (BEAKER) (test 4.3 meq/L 3.5-5.1 zsly=862) CHLORIDE (BEAKER) (test 101 meq/L 98-107 rdek=550) CO2 (BEAKER) (test 25 meq/L 22-29 cwbr=420) BLOOD UREA NITROGEN 31 mg/dL 7-21 (BEAKER) (test ytoc=491) CREATININE (BEAKER) (test 1.13 mg/dL 0.57-1.25 ylsl=074) GLUCOSE RANDOM (BEAKER) 180 mg/dL 70-105 (test zqqe=330) CALCIUM (BEAKER) (test 9.9 mg/dL 8.4-10.2 hjyc=244) EGFR (BEAKER) (test 63 mL/min/1.73 sq m ESTIMATED GFR IS NOT okbf=0231) ACCURATE CREATININE CLEARANCE IN PREDICTING GLOMERULAR FILTRATION RATE. ESTIMATED GFR IS NOT APPLICABLE FOR DIALYSIS PATIENTS. CBC W/PLT COUNT & AUTO [id number] 05:07:00 Test Item Value Reference Range Comments WHITE BLOOD CELL COUNT (BEAKER) (test vxed=255) 4.7 K/ L 3.5-10.5 RED BLOOD CELL COUNT (BEAKER) (test fjdb=358) 4.57 M/ L 4.63-6.08 HEMOGLOBIN (BEAKER) (test rbsw=176) 14.2 GM/DL 13.7-17.5 HEMATOCRIT (BEAKER) (test llzq=421) 42.3 % 40.1-51.0 MEAN CORPUSCULAR VOLUME (BEAKER) (test wxhk=351) 92.6 fL 79.0-92.2 MEAN CORPUSCULAR HEMOGLOBIN (BEAKER) (test 31.1 pg 25.7-32.2 tciv=185) MEAN CORPUSCULAR HEMOGLOBIN CONC (BEAKER) (test 33.6 GM/DL 32.3-36.5 hnuu=086) RED CELL DISTRIBUTION WIDTH (BEAKER) (test 15.3 % 11.6-14.4 xkcw=284) PLATELET COUNT (BEAKER) (test pnaz=185) 126 K/CU MM 150-450 MEAN PLATELET VOLUME (BEAKER) (test flvw=422) 10.5 fL 9.4-12.4 NUCLEATED RED BLOOD CELLS (BEAKER) (test 0 /100 WBC 0-0 umgf=406) NEUTROPHILS RELATIVE PERCENT (BEAKER) (test 61 % rzik=538) LYMPHOCYTES RELATIVE PERCENT (BEAKER) (test 26 % sobh=826) MONOCYTES RELATIVE PERCENT (BEAKER) (test 10 % fvua=571) EOSINOPHILS RELATIVE PERCENT (BEAKER) (test 2 % fksl=420) BASOPHILS RELATIVE PERCENT (BEAKER) (test 1 % ogan=301) NEUTROPHILS ABSOLUTE COUNT (BEAKER) (test 2.83 K/ L 1.78-5.38 bkgy=894) LYMPHOCYTES ABSOLUTE COUNT (BEAKER) (test 1.24 K/ L 1.32-3.57 jjpt=669) MONOCYTES ABSOLUTE COUNT (BEAKER) (test 0.48 K/ L 0.30-0.82 pryw=174) EOSINOPHILS ABSOLUTE COUNT (BEAKER) (test 0.10 K/ L 0.04-0.54 ejkx=297) BASOPHILS ABSOLUTE COUNT (BEAKER) (test 0.03 K/ L 0.01-0.08 trhh=010) IMMATURE GRANULOCYTES-RELATIVE PERCENT (BEAKER) 0 % 0-1 (test onje=9006) POCT-GLUCOSE [id number] 18:32:00 Test Item Value Reference Range Comments POC-GLUCOSE METER (BEAKER) 230 mg/dL 70-110 TESTED AT [address] (test ckuj=3872) [place] [id number] POCT-GLUCOSE [id number] 16:39:00 Test Item Value Reference Range Comments POC-GLUCOSE METER (BEAKER) 254 mg/dL 70-110 TESTED AT [address] (test pqtm=5439) [place] [id number] POCT-GLUCOSE [id number] 12:51:00 Test Item Value Reference Range Comments POC-GLUCOSE METER (BEAKER) 326 mg/dL 70-110 TESTED AT [address] (test qzqy=0419) [place] [id number] RAD, CHEST, 1 VIEW, NON [id number] 09:57:00Reason for exam:->SOBShould this be performed at the bedside?->YesFINAL REPORT CLINICAL HISTORY: SOB TECHNIQUE: 1 view of the chest. COMPARISON: 09/09/2017 IMPRESSION: There are no focal infiltrates or effusions. The cardiomediastinal silhouetteis magnified by technique with sternotomy wires and a pacemaker. Signed: Daniel Lanza MDReport Verified Date/Time: 09/13/2017 09:57:46 Reading Location: [facility] Radiology Reading Room [id number] 04:43:00 Test Item Value Reference Range Comments MAGNESIUM (BEAKER) (test dbuv=326) 2.2 mg/dL 1.6-2.6 BASIC METABOLIC [id number] 04:43:00 Test Item Value Reference Range Comments SODIUM (BEAKER) (test 138 meq/L 136-145 oczj=790) POTASSIUM (BEAKER) (test 4.2 meq/L 3.5-5.1 fyel=568) CHLORIDE (BEAKER) (test 102 meq/L 98-107 jxpy=268) CO2 (BEAKER) (test 27 meq/L 22-29 xfej=649) BLOOD UREA NITROGEN 25 mg/dL 7-21 (BEAKER) (test apzi=436) CREATININE (BEAKER) (test 1.08 mg/dL 0.57-1.25 bltm=117) GLUCOSE RANDOM (BEAKER) 169 mg/dL 70-105 (test njuk=620) CALCIUM (BEAKER) (test 9.9 mg/dL 8.4-10.2 svbx=371) EGFR (BEAKER) (test 66 mL/min/1.73 sq m ESTIMATED GFR IS NOT fzhn=6265) ACCURATE CREATININE CLEARANCE IN PREDICTING GLOMERULAR FILTRATION RATE. ESTIMATED GFR IS NOT APPLICABLE FOR DIALYSIS PATIENTS. CBC W/PLT COUNT & AUTO [id number] 04:23:00 Test Item Value Reference Range Comments WHITE BLOOD CELL COUNT (BEAKER) (test btqu=907) 5.6 K/ L 3.5-10.5 RED BLOOD CELL COUNT (BEAKER) (test hbot=304) 4.81 M/ L 4.63-6.08 HEMOGLOBIN (BEAKER) (test vbnz=815) 14.9 GM/DL 13.7-17.5 HEMATOCRIT (BEAKER) (test icas=518) 44.9 % 40.1-51.0 MEAN CORPUSCULAR VOLUME (BEAKER) (test gexz=192) 93.3 fL 79.0-92.2 MEAN CORPUSCULAR HEMOGLOBIN (BEAKER) (test 31.0 pg 25.7-32.2 ztle=477) MEAN CORPUSCULAR HEMOGLOBIN CONC (BEAKER) (test 33.2 GM/DL 32.3-36.5 qmkk=886) RED CELL DISTRIBUTION WIDTH (BEAKER) (test 15.3 % 11.6-14.4 vybo=587) PLATELET COUNT (BEAKER) (test imtq=735) 144 K/CU MM 150-450 MEAN PLATELET VOLUME (BEAKER) (test zcha=008) 10.7 fL 9.4-12.4 NUCLEATED RED BLOOD CELLS (BEAKER) (test 0 /100 WBC 0-0 agqf=233) NEUTROPHILS RELATIVE PERCENT (BEAKER) (test 65 % dcel=764) LYMPHOCYTES RELATIVE PERCENT (BEAKER) (test 22 % rnwh=834) MONOCYTES RELATIVE PERCENT (BEAKER) (test 11 % lkgr=378) EOSINOPHILS RELATIVE PERCENT (BEAKER) (test 2 % awkj=789) BASOPHILS RELATIVE PERCENT (BEAKER) (test 1 % yten=538) NEUTROPHILS ABSOLUTE COUNT (BEAKER) (test 3.63 K/ L 1.78-5.38 bfst=178) LYMPHOCYTES ABSOLUTE COUNT (BEAKER) (test 1.24 K/ L 1.32-3.57 sllw=117) MONOCYTES ABSOLUTE COUNT (BEAKER) (test 0.61 K/ L 0.30-0.82 shmj=144) EOSINOPHILS ABSOLUTE COUNT (BEAKER) (test 0.10 K/ L 0.04-0.54 fpxn=736) BASOPHILS ABSOLUTE COUNT (BEAKER) (test 0.03 K/ L 0.01-0.08 eisk=742) IMMATURE GRANULOCYTES-RELATIVE PERCENT (BEAKER) 0 % 0-1 (test ngzo=5795) POCT-GLUCOSE [id number] 22:01:00 Test Item Value Reference Range Comments POC-GLUCOSE METER (BEAKER) 141 mg/dL 70-[address] [facility] [address] [facility] (test fgyb=5875) [facility] [address] POCT-GLUCOSE [id number] 14:30:00 Test Item Value Reference Range Comments POC-GLUCOSE METER (BEAKER) 133 mg/dL 70-[address] [facility] [address] [facility] (test wxaw=3641) [facility] [address] POCT-GLUCOSE [id number] 08:06:00 Test Item Value Reference Range Comments POC-GLUCOSE METER (BEAKER) 175 mg/dL 70-110 TESTED AT [place] [id number] [facility] (test dpyr=1081) [facility] [address] [id number] 06:06:00 Test Item Value Reference Range Comments MAGNESIUM (BEAKER) (test 2.1 mg/dL 1.6-2.6 Specimen slightly hemolyzed utqq=521) BASIC METABOLIC [id number] 06:06:00 Test Item Value Reference Range Comments SODIUM (BEAKER) (test 135 meq/L 136-145 npou=312) POTASSIUM (BEAKER) (test 4.3 meq/L 3.5-5.1 Specimen slightly lpmx=499) hemolyzed CHLORIDE (BEAKER) (test 103 meq/L 98-107 hdaz=625) CO2 (BEAKER) (test 22 meq/L 22-29 wxvu=910) BLOOD UREA NITROGEN 33 mg/dL 7-21 (BEAKER) (test odwm=072) CREATININE (BEAKER) (test 1.11 mg/dL 0.57-1.25 Specimen slightly rxqh=145) hemolyzed GLUCOSE RANDOM (BEAKER) 156 mg/dL 70-105 (test enui=518) CALCIUM (BEAKER) (test 9.9 mg/dL 8.4-10.2 fsvb=695) EGFR (BEAKER) (test 64 mL/min/1.73 sq m ESTIMATED GFR IS NOT zqpk=2930) ACCURATE CREATININE CLEARANCE IN PREDICTING GLOMERULAR FILTRATION RATE. ESTIMATED GFR IS NOT APPLICABLE FOR DIALYSIS PATIENTS. CBC W/PLT COUNT & AUTO [id number] 05:05:00 Test Item Value Reference Range Comments WHITE BLOOD CELL COUNT (BEAKER) (test klwx=362) 5.2 K/ L 3.5-10.5 RED BLOOD CELL COUNT (BEAKER) (test ehzy=099) 4.65 M/ L 4.63-6.08 HEMOGLOBIN (BEAKER) (test cbhr=239) 14.3 GM/DL 13.7-17.5 HEMATOCRIT (BEAKER) (test txrz=204) 43.2 % 40.1-51.0 MEAN CORPUSCULAR VOLUME (BEAKER) (test yecz=432) 92.9 fL 79.0-92.2 MEAN CORPUSCULAR HEMOGLOBIN (BEAKER) (test 30.8 pg 25.7-32.2 tcxm=447) MEAN CORPUSCULAR HEMOGLOBIN CONC (BEAKER) (test 33.1 GM/DL 32.3-36.5 cntx=132) RED CELL DISTRIBUTION WIDTH (BEAKER) (test 15.7 % 11.6-14.4 uwdi=862) PLATELET COUNT (BEAKER) (test rgpz=719) 132 K/CU MM 150-450 MEAN PLATELET VOLUME (BEAKER) (test gpev=959) 10.4 fL 9.4-12.4 NUCLEATED RED BLOOD CELLS (BEAKER) (test 0 /100 WBC 0-0 unfd=753) NEUTROPHILS RELATIVE PERCENT (BEAKER) (test 64 % dubw=612) LYMPHOCYTES RELATIVE PERCENT (BEAKER) (test 24 % mwfh=623) MONOCYTES RELATIVE PERCENT (BEAKER) (test 10 % zppe=379) EOSINOPHILS RELATIVE PERCENT (BEAKER) (test 1 % vizh=863) BASOPHILS RELATIVE PERCENT (BEAKER) (test 1 % ebst=627) NEUTROPHILS ABSOLUTE COUNT (BEAKER) (test 3.31 K/ L 1.78-5.38 gpde=939) LYMPHOCYTES ABSOLUTE COUNT (BEAKER) (test 1.24 K/ L 1.32-3.57 ttrp=025) MONOCYTES ABSOLUTE COUNT (BEAKER) (test 0.49 K/ L 0.30-0.82 vlar=874) EOSINOPHILS ABSOLUTE COUNT (BEAKER) (test 0.07 K/ L 0.04-0.54 mnbc=238) BASOPHILS ABSOLUTE COUNT (BEAKER) (test 0.04 K/ L 0.01-0.08 zqam=066) IMMATURE GRANULOCYTES-RELATIVE PERCENT (BEAKER) 0 % 0-1 (test zeqy=2329) [id number] 23:26:00 Test Item Value Reference Range Comments MAGNESIUM (BEAKER) (test khrf=918) 2.1 mg/dL 1.6-2.6 BASIC METABOLIC [id number] 23:26:00 Test Item Value Reference Range Comments SODIUM (BEAKER) (test 136 meq/L 136-145 fenn=148) POTASSIUM (BEAKER) (test 4.3 meq/L 3.5-5.1 funp=700) CHLORIDE (BEAKER) (test 101 meq/L 98-107 iwgx=898) CO2 (BEAKER) (test 25 meq/L 22-29 srnr=493) BLOOD UREA NITROGEN 36 mg/dL 7-21 (BEAKER) (test yzuk=318) CREATININE (BEAKER) (test 1.14 mg/dL 0.57-1.25 svle=870) GLUCOSE RANDOM (BEAKER) 148 mg/dL 70-105 (test mmqs=841) CALCIUM (BEAKER) (test 10.3 mg/dL 8.4-10.2 cowq=291) EGFR (BEAKER) (test 62 mL/min/1.73 sq m ESTIMATED GFR IS NOT kmmu=3263) ACCURATE CREATININE CLEARANCE IN PREDICTING GLOMERULAR FILTRATION RATE. ESTIMATED GFR IS NOT APPLICABLE FOR DIALYSIS PATIENTS. POCT-GLUCOSE [id number] 23:05:00 Test Item Value Reference Range Comments POC-GLUCOSE METER (BEAKER) 169 mg/dL 70-110 TESTED AT [address] (test eate=0988) [place] [address] POCT-GLUCOSE [id number] 17:13:00 Test Item Value Reference Range Comments POC-GLUCOSE METER (BEAKER) 243 mg/dL 70-110 TESTED AT [address] (test tvjx=8661) [place] [id number] POCT-GLUCOSE [id number] 11:56:00 Test Item Value Reference Range Comments POC-GLUCOSE METER (BEAKER) 182 mg/dL 70-110 TESTED AT [address] (test pwrv=1608) [place] [address] POCT-GLUCOSE [id number] 07:56:00 Test Item Value Reference Range Comments POC-GLUCOSE METER (BEAKER) 197 mg/dL 70-110 TESTED AT [address] (test pgrp=6385) [place] [address] [id number] 04:48:00 Test Item Value Reference Range Comments MAGNESIUM (BEAKER) (test dwqs=805) 2.2 mg/dL 1.6-2.6 BASIC METABOLIC [id number] 04:48:00 Test Item Value Reference Range Comments SODIUM (BEAKER) (test 137 meq/L 136-145 wgxi=573) POTASSIUM (BEAKER) (test 4.4 meq/L 3.5-5.1 ccyw=966) CHLORIDE (BEAKER) (test 106 meq/L 98-107 llsl=137) CO2 (BEAKER) (test 23 meq/L 22-29 aern=145) BLOOD UREA NITROGEN 34 mg/dL 7-21 (BEAKER) (test htes=412) CREATININE (BEAKER) (test 1.14 mg/dL 0.57-1.25 kisa=412) GLUCOSE RANDOM (BEAKER) 160 mg/dL 70-105 (test fttg=818) CALCIUM (BEAKER) (test 9.8 mg/dL 8.4-10.2 gwnd=118) EGFR (BEAKER) (test 62 mL/min/1.73 sq m ESTIMATED GFR IS NOT cwyi=8248) ACCURATE CREATININE CLEARANCE IN PREDICTING GLOMERULAR FILTRATION RATE. ESTIMATED GFR IS NOT APPLICABLE FOR DIALYSIS PATIENTS. [id number] 04:29:00 Test Item Value Reference Range Comments PARTIAL THROMBOPLASTIN TIME (BEAKER) (test 26.5 seconds 22.5-36.0 stvd=278) PROTHROMBIN [id number] 04:28:00 Test Item Value Reference Range Comments PROTIME (BEAKER) (test nlcx=737) 14.4 seconds 11.7-14.7 INR (BEAKER) (test kdhm=841) 1.1 <=5.9 RECOMMENDED COUMADIN/WARFARIN INR THERAPY RANGESSTANDARD DOSE: 2.0 - 3.0 Includes: PROPHYLAXIS forvenous thrombosis, systemic embolization; TREATMENT for venous thrombosis and/or pulmonary embolus.HIGH RISK: Target INR is 2.5-3.5 for patients with mechanical heart valves.CBC W/PLT COUNT & AUTO [id number] 04:05:00 Test Item Value Reference Range Comments WHITE BLOOD CELL COUNT (BEAKER) (test rtgh=216) 5.2 K/ L 3.5-10.5 RED BLOOD CELL COUNT (BEAKER) (test ipdr=826) 4.65 M/ L 4.63-6.08 HEMOGLOBIN (BEAKER) (test nowa=866) 14.2 GM/DL 13.7-17.5 HEMATOCRIT (BEAKER) (test jald=615) 43.2 % 40.1-51.0 MEAN CORPUSCULAR VOLUME (BEAKER) (test uoob=058) 92.9 fL 79.0-92.2 MEAN CORPUSCULAR HEMOGLOBIN (BEAKER) (test 30.5 pg 25.7-32.2 dvgg=572) MEAN CORPUSCULAR HEMOGLOBIN CONC (BEAKER) (test 32.9 GM/DL 32.3-36.5 mqwu=559) RED CELL DISTRIBUTION WIDTH (BEAKER) (test 15.8 % 11.6-14.4 dzvj=471) PLATELET COUNT (BEAKER) (test oeea=994) 141 K/CU MM 150-450 MEAN PLATELET VOLUME (BEAKER) (test aitk=839) 10.7 fL 9.4-12.4 NUCLEATED RED BLOOD CELLS (BEAKER) (test 0 /100 WBC 0-0 nzjm=708) NEUTROPHILS RELATIVE PERCENT (BEAKER) (test 64 % mohy=330) LYMPHOCYTES RELATIVE PERCENT (BEAKER) (test 24 % kuvh=466) MONOCYTES RELATIVE PERCENT (BEAKER) (test 9 % mdoy=718) EOSINOPHILS RELATIVE PERCENT (BEAKER) (test 2 % jzjm=463) BASOPHILS RELATIVE PERCENT (BEAKER) (test 0 % bxlm=908) NEUTROPHILS ABSOLUTE COUNT (BEAKER) (test 3.33 K/ L 1.78-5.38 sguc=263) LYMPHOCYTES ABSOLUTE COUNT (BEAKER) (test 1.25 K/ L 1.32-3.57 kbxb=963) MONOCYTES ABSOLUTE COUNT (BEAKER) (test 0.48 K/ L 0.30-0.82 zxji=446) EOSINOPHILS ABSOLUTE COUNT (BEAKER) (test 0.08 K/ L 0.04-0.54 ofcv=233) BASOPHILS ABSOLUTE COUNT (BEAKER) (test 0.02 K/ L 0.01-0.08 mmuj=899) IMMATURE GRANULOCYTES-RELATIVE PERCENT (BEAKER) 0 % 0-1 (test pmkl=0222) POCT-GLUCOSE [id number] 21:23:00 Test Item Value Reference Range Comments POC-GLUCOSE METER (BEAKER) 173 mg/dL 70-[address] [facility] [address] [facility] (test qtrg=8233) [place] [address] URINALYSIS W/ [id number] 17:46:00 Test Item Value Reference Range Comments COLOR (BEAKER) (test wgqe=575) Light Yellow CLARITY (BEAKER) (test veui=998) Clear SPECIFIC GRAVITY UA (BEAKER) (test awtc=186) 1.009 1.001-1.035 PH UA (BEAKER) (test frcs=908) 5.0 5.0-8.0 PROTEIN UA (BEAKER) (test mmbc=194) Negative Negative GLUCOSE UA (BEAKER) (test lrhk=036) >1000 mg/dL Negative KETONES UA (BEAKER) (test rsmx=029) Negative Negative BILIRUBIN UA (BEAKER) (test yefm=310) Negative Negative BLOOD UA (BEAKER) (test thyd=380) Negative Negative NITRITE UA (BEAKER) (test zjvf=281) Negative Negative LEUKOCYTE ESTERASE UA (BEAKER) (test ecsx=131) Negative Negative UROBILINOGEN UA (BEAKER) (test ilwz=267) 0.2 mg/dL 0.2-1.0 RBC UA (BEAKER) (test kppj=948) 1 /HPF WBC UA (BEAKER) (test lqfi=009) < /HPF HYALINE CASTS (BEAKER) (test yuby=525) 2 /LPF SOURCE(BEAKER) (test vhsp=6062) Urine, Voided B-TYPE NATRIURETIC FACTOR (BNP)[id number] 17:39:00 Test Item Value Reference Range Comments B-TYPE NATRIURETIC PEPTIDE (BEAKER) (test 246 pg/mL 0-100 udin=747) CREATINE KINASE (CK), TOTAL AND [id number] 17:37:00 Test Item Value Reference Range Comments CREATINE KINASE TOTAL (BEAKER) (test xgjt=064) 105 U/L 29-200 CREATINE KINASE-MB (BEAKER) (test flay=521) 2.6 ng/mL 0.0-6.6 CREATINE KINASE-MB INDEX (BEAKER) (test snjk=882) 2.5 % CK-MB Reference Range:<6.7 Normal6.7-10.0 Borderline>10.0 AbnormalTROPONIN [id number] 17:37:00 Test Item Value Reference Range Comments TROPONIN I (BEAKER) (test noba=747) 0.03 ng/mL 0.00-0.03 Troponin I (TnI) levels [...] acidosis, acute neurological disease, and persistent tachyarrhythmia.POCT-GLUCOSE [id number] 16:57:00 Test Item Value Reference Range Comments POC-GLUCOSE METER (BEAKER) 144 mg/dL 70-[address] [facility] [address] [facility] (test prav=6162) [facility] [address] CREATINE KINASE (CK), TOTAL AND [id number] 08:52:00 Test Item Value Reference Range Comments CREATINE KINASE TOTAL (BEAKER) (test skta=551) 126 U/L 29-200 CREATINE KINASE-MB (BEAKER) (test skvs=253) 2.9 ng/mL 0.0-6.6 CREATINE KINASE-MB INDEX (BEAKER) (test fwvu=050) 2.3 % CK-MB Reference Range:<6.7 Normal6.7-10.0 Borderline>10.0 AbnormalTROPONIN [id number] 08:52:00 Test Item Value Reference Range Comments TROPONIN I (BEAKER) (test nnsw=356) 0.03 ng/mL 0.00-0.03 Troponin I (TnI) levels [...] failure, acidosis, acute neurological disease, and persistent tachyarrhythmia.[id number] 05:36:00 Test Item Value Reference Range Comments MAGNESIUM (BEAKER) (test 2.2 mg/dL 1.6-2.6 Specimen slightly hemolyzed pmjb=014) BASIC METABOLIC [id number] 05:36:00 Test Item Value Reference Range Comments SODIUM (BEAKER) (test 140 meq/L 136-145 mbrz=125) POTASSIUM (BEAKER) (test 4.2 meq/L 3.5-5.1 Specimen slightly jslo=405) hemolyzed CHLORIDE (BEAKER) (test 108 meq/L 98-107 urvm=177) CO2 (BEAKER) (test 21 meq/L 22-29 tgvd=033) BLOOD UREA NITROGEN 30 mg/dL 7-21 (BEAKER) (test umzp=471) CREATININE (BEAKER) (test 1.03 mg/dL 0.57-1.25 Specimen slightly qxsy=114) hemolyzed GLUCOSE RANDOM (BEAKER) 122 mg/dL 70-105 (test lilg=654) CALCIUM (BEAKER) (test 9.3 mg/dL 8.4-10.2 uvvs=967) EGFR (BEAKER) (test 70 mL/min/1.73 sq m ESTIMATED GFR IS NOT vwho=5422) ACCURATE CREATININE CLEARANCE IN PREDICTING GLOMERULAR FILTRATION RATE. ESTIMATED GFR IS NOT APPLICABLE FOR DIALYSIS PATIENTS. CBC W/PLT COUNT & AUTO [id number] 05:15:00 Test Item Value Reference Range Comments WHITE BLOOD CELL COUNT (BEAKER) (test ukez=464) 5.1 K/ L 3.5-10.5 RED BLOOD CELL COUNT (BEAKER) (test impo=606) 4.62 M/ L 4.63-6.08 HEMOGLOBIN (BEAKER) (test rbzp=374) 14.1 GM/DL 13.7-17.5 HEMATOCRIT (BEAKER) (test xcjh=486) 43.3 % 40.1-51.0 MEAN CORPUSCULAR VOLUME (BEAKER) (test lmeq=951) 93.7 fL 79.0-92.2 MEAN CORPUSCULAR HEMOGLOBIN (BEAKER) (test 30.5 pg 25.7-32.2 bvnh=453) MEAN CORPUSCULAR HEMOGLOBIN CONC (BEAKER) (test 32.6 GM/DL 32.3-36.5 rtgv=830) RED CELL DISTRIBUTION WIDTH (BEAKER) (test 15.9 % 11.6-14.4 fdeb=335) PLATELET COUNT (BEAKER) (test mdsg=936) 138 K/CU MM 150-450 MEAN PLATELET VOLUME (BEAKER) (test rtiv=147) 10.6 fL 9.4-12.4 NUCLEATED RED BLOOD CELLS (BEAKER) (test 0 /100 WBC 0-0 picm=199) NEUTROPHILS RELATIVE PERCENT (BEAKER) (test 59 % xhvx=315) LYMPHOCYTES RELATIVE PERCENT (BEAKER) (test 27 % vfak=405) MONOCYTES RELATIVE PERCENT (BEAKER) (test 11 % wqpd=290) EOSINOPHILS RELATIVE PERCENT (BEAKER) (test 1 % kvio=119) BASOPHILS RELATIVE PERCENT (BEAKER) (test 1 % hdut=151) NEUTROPHILS ABSOLUTE COUNT (BEAKER) (test 3.02 K/ L 1.78-5.38 vuct=400) LYMPHOCYTES ABSOLUTE COUNT (BEAKER) (test 1.39 K/ L 1.32-3.57 jqso=865) MONOCYTES ABSOLUTE COUNT (BEAKER) (test 0.56 K/ L 0.30-0.82 hfqg=765) EOSINOPHILS ABSOLUTE COUNT (BEAKER) (test 0.07 K/ L 0.04-0.54 puvx=253) BASOPHILS ABSOLUTE COUNT (BEAKER) (test 0.03 K/ L 0.01-0.08 pxta=375) IMMATURE GRANULOCYTES-RELATIVE PERCENT (BEAKER) 0 % 0-1 (test xqyr=2231) URINALYSIS W/ [id number] 02:45:00 Test Item Value Reference Range Comments COLOR (BEAKER) (test fpci=219) Light Yellow CLARITY (BEAKER) (test tews=826) Clear SPECIFIC GRAVITY UA (BEAKER) (test gmse=060) 1.023 1.001-1.035 PH UA (BEAKER) (test lmex=638) 5.0 5.0-8.0 PROTEIN UA (BEAKER) (test ilsn=369) Negative Negative GLUCOSE UA (BEAKER) (test juie=503) >1000 mg/dL Negative KETONES UA (BEAKER) (test jzwh=553) Negative Negative BILIRUBIN UA (BEAKER) (test dfrr=018) Negative Negative BLOOD UA (BEAKER) (test kltg=092) Negative Negative NITRITE UA (BEAKER) (test nxgd=061) Negative Negative LEUKOCYTE ESTERASE UA (BEAKER) (test umdz=207) Negative Negative UROBILINOGEN UA (BEAKER) (test tpuw=099) 0.2 mg/dL 0.2-1.0 RBC UA (BEAKER) (test lcap=258) < /HPF WBC UA (BEAKER) (test aodb=475) < /HPF MUCUS (BEAKER) (test vkta=5568) Rare HYALINE CASTS (BEAKER) (test osjw=383) 2 /LPF AMORPHOUS CRYSTALS (BEAKER) (test mido=3533) Rare SOURCE(BEAKER) (test ajbj=1108) CREATINE KINASE (CK), TOTAL AND [id number] 02:03:00 Test Item Value Reference Range Comments CREATINE KINASE TOTAL (BEAKER) (test ubjh=548) 115 U/L 29-200 CREATINE KINASE-MB (BEAKER) (test tqde=360) 2.7 ng/mL 0.0-6.6 CREATINE KINASE-MB INDEX (BEAKER) (test btmu=127) 2.3 % CK-MB Reference Range:<6.7 Normal6.7-10.0 Borderline>10.0 AbnormalTROPONIN [id number] 02:03:00 Test Item Value Reference Range Comments TROPONIN I (BEAKER) (test mtkj=847) 0.03 ng/mL 0.00-0.03 Troponin I (TnI) levels [...] acute neurological disease, and persistent tachyarrhythmia.HEPATIC FUNCTION [id number] 01:56: 00 Test Item Value Reference Range Comments TOTAL PROTEIN (BEAKER) (test dckn=658) 6.3 gm/dL 6.0-8.3 ALBUMIN (BEAKER) (test iuxj=4616) 3.9 g/dL 3.5-5.0 BILIRUBIN TOTAL (BEAKER) (test qwyf=523) 0.3 mg/dL 0.2-1.2 BILIRUBIN DIRECT (BEAKER) (test bdgl=629) 0.2 mg/dL 0.1-0.5 ALKALINE PHOSPHATASE (BEAKER) (test yyam=992) 51 U/L 40-150 AST (SGOT) (BEAKER) (test fhjy=451) 17 U/L 5-34 ALT (SGPT) (BEAKER) (test ftfs=172) 13 U/L 6-55 CREATINE KINASE (CK), TOTAL AND [id number] 22:41:00 Test Item Value Reference Range Comments CREATINE KINASE TOTAL (BEAKER) (test mwdk=974) 132 U/L 29-200 CREATINE KINASE-MB (BEAKER) (test xdyx=185) 3.1 ng/mL 0.0-6.6 CREATINE KINASE-MB INDEX (BEAKER) (test oqxv=095) 2.3 % CK-MB Reference Range:<6.7 Normal6.7-10.0 Borderline>10.0 AbnormalTROPONIN [id number] 22:41:00 Test Item Value Reference Range Comments TROPONIN I (BEAKER) (test cbhw=618) 0.02 ng/mL 0.00-0.03 Troponin I (TnI) levels [...] NATRIURETIC PEPTIDE (BEAKER) (test 157 pg/mL 0-100 fbmd=558) RAD, CHEST, 1 VIEW, NON [id number] 22:37:00Reason for exam:-> PALPITATIONSShould this be performed [...] No focal pulmonary consolidation. Signed: [facility] Verified Date/Time: 09/09/2017 22:37:39 Reading Location: [address] Reading Room BASIC METABOLIC [id number] 22:36:00 Test Item Value Reference Range Comments SODIUM (BEAKER) (test 136 meq/L 136-145 qzpm=787) POTASSIUM (BEAKER) (test 4.2 meq/L 3.5-5.1 Specimen slightly tehr=924) hemolyzed CHLORIDE (BEAKER) (test 104 meq/L 98-107 cqzz=297) CO2 (BEAKER) (test 22 meq/L 22-29 erjp=538) BLOOD UREA NITROGEN 32 mg/dL 7-21 (BEAKER) (test nrxh=972) CREATININE (BEAKER) (test 1.18 mg/dL 0.57-1.25 Specimen slightly ozfu=343) hemolyzed GLUCOSE RANDOM (BEAKER) 150 mg/dL 70-105 (test gbqt=576) CALCIUM (BEAKER) (test 9.7 mg/dL 8.4-10.2 sbvt=179) EGFR (BEAKER) (test mL/min/1.73 sq m INSUFFICIENT CLINICAL DATA uhdk=8381) TO CALCULATE ESTIMATED GFR. [id number] 22:34:00 Test Item Value Reference Range Comments MAGNESIUM (BEAKER) (test 2.4 mg/dL 1.6-2.6 Specimen slightly hemolyzed tioe=359) CBC W/PLT COUNT & AUTO [id number] 22:10:00 Test Item Value Reference Range Comments WHITE BLOOD CELL COUNT (BEAKER) (test iazo=193) 7.1 K/ L 3.5-10.5 RED BLOOD CELL COUNT (BEAKER) (test bjko=343) 4.40 M/ L 4.63-6.08 HEMOGLOBIN (BEAKER) (test cfth=005) 13.8 GM/DL 13.7-17.5 HEMATOCRIT (BEAKER) (test oznk=395) 41.4 % 40.1-51.0 MEAN CORPUSCULAR VOLUME (BEAKER) (test yeot=602) 94.1 fL 79.0-92.2 MEAN CORPUSCULAR HEMOGLOBIN (BEAKER) (test 31.4 pg 25.7-32.2 hjfp=224) MEAN CORPUSCULAR HEMOGLOBIN CONC (BEAKER) (test 33.3 GM/DL 32.3-36.5 bpcl=314) RED CELL DISTRIBUTION WIDTH (BEAKER) (test 15.9 % 11.6-14.4 jjtu=187) PLATELET COUNT (BEAKER) (test qjuu=665) 159 K/CU MM 150-450 MEAN PLATELET VOLUME (BEAKER) (test xjpv=678) 10.9 fL 9.4-12.4 NUCLEATED RED BLOOD CELLS (BEAKER) (test 0 /100 WBC 0-0 xdrs=736) NEUTROPHILS RELATIVE PERCENT (BEAKER) (test 69 % clii=421) LYMPHOCYTES RELATIVE PERCENT (BEAKER) (test 22 % kpwa=474) MONOCYTES RELATIVE PERCENT (BEAKER) (test 8 % mrsp=335) EOSINOPHILS RELATIVE PERCENT (BEAKER) (test 1 % kdbp=453) BASOPHILS RELATIVE PERCENT (BEAKER) (test 0 % kskc=881) NEUTROPHILS ABSOLUTE COUNT (BEAKER) (test 4.89 K/ L 1.78-5.38 ogpo=607) LYMPHOCYTES ABSOLUTE COUNT (BEAKER) (test 1.54 K/ L 1.32-3.57 pzoz=600) MONOCYTES ABSOLUTE COUNT (BEAKER) (test 0.57 K/ L 0.30-0.82 lxdz=310) EOSINOPHILS ABSOLUTE COUNT (BEAKER) (test 0.07 K/ L 0.04-0.54 gsdv=029) BASOPHILS ABSOLUTE COUNT (BEAKER) (test 0.03 K/ L 0.01-0.08 ubkl=084) IMMATURE GRANULOCYTES-RELATIVE PERCENT (BEAKER) 0 % 0-1 (test bbvd=2261)
--- OUTSIDE RECORDS SUMMARY | 2018-07-01 07:52 | XMS REPORT ---
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
[2018-07-01 08:21] LABS: Absolute Lymphocytes (CBC) 0.6 K/uL (0.7-4.9); Absolute Monocytes 0.6 K/uL (0.1-1.3); Absolute Neutrophil 5.6 K/uL (1.8-8.0); Basophils % 0.4 % (0-1.3); Hematocrit 41.6 % (39.6-49.0); Lymphocytes % 8.2 % (15.3-44.8); MPV 8.7 fL (7.6-11.3); Monocytes % 8.6 % (3.3-12.3); RBC Red Blood Cell Count 4.52 M/uL (4.33-5.43)
[2018-07-01 08:24] LABS: Protime INR 1.22
[2018-07-01 08:40] LABS: Bilirubin Total 0.5 mg/dL (0.2-1.0); Magnesium 2.2 mg/dL (1.8-2.4); Potassium 4.2 mmol/L (3.5-5.1); Protein, Total 6.9 g/dL (6.4-8.2); Troponin (Emerg Dept Use Only) 0.05 ng/mL (0.0-0.045)
[2018-07-01 09:27] LABS: Urine Blood NEGATIVE (NEG); Urine Glucose 2+ (NEG); Urine Protein 1+ (NEG); Urine Specific Gravity 1.025 (1.005-1.030)
[2018-07-01] MEDS ORDERED: CEFTRIAXONE/SWI 1gm 1 GM/10 ML SYR ONE (10:04)
[2018-07-01] MEDS ORDERED: AZITHROMYCIN 500 MG/250 ML BAG ONE (10:04)
--- NOTE | 2018-07-01 11:07 | EDPHYS ---
Physician Documentation [facility] Name: Cuco Escobar Age: 78 yrs Sex: Male : 1940 Arrival Date: 07/01/2018 Time: 07:50 Bed 5 Private MD: Levi Morgan H ED Physician Bentley Pulido HPI: 07/01 08:27 This 78 yrs old Male presents to ER via Ambulatory with complaints of cough. ps1 08:27 patient has had a cough for over a week and was previously evaluated with flu and cxr ps1 by outside physician. He states that he has additionally had sinus congestion and a runny nose. He states that he has not felt much better and hasnt felt well since he moved and has started building a house in the area. He has a significant CAD history with CABG x5 vessel and stenting. He has an AICD which has not fired but felt like it revved up. He denies chest pain but states it hurts when he coughs. No hypoxia. No leg swelling. No recent travel. . Historical: - Allergies: 08:10 No Known Allergies; jl7 - Home Meds: 08:30 amiodarone 200 mg Oral tab 1 tab 2 times per day [Active]; atorvastatin 20 mg oral tab jl7 1 tab once daily [Active]; furosemide 40 mg Oral tab 1 tab once daily [Active]; allopurinol 300 mg Oral tab 1 tab once daily [Active]; balsalazide 750 mg oral cap 2 caps BID [Active]; Colestid 1 gram Oral tab [Active]; glimepiride 2 mg Oral tab 1 tab once daily [Active]; lisinopril 2.5 mg Oral tab 1 tab once daily [Active]; Nitrostat 0.4 mg SL subl 1 tab every 5 minutes [Active]; spironolactone 25 mg Oral tab 1 tab once daily [Active]; aspirin 81 mg Oral chew 1 tab once daily [Active]; Januvia 100 mg oral tab 1 tab once daily [Active]; CoQ-10 oral oral [Active]; Vitamin Oral tab 1 tab once daily [Active]; HMB [Active]; - PMHx: 08:30 Gout; Atrial Fib; Heart Murmur; [place]; Hyperlipidemia; Hypertension; Crohn's; Diabetes - jl7 NIDDM; CHF; - PSHx: 08:30 Cholecystectomy; Bowel resection; Heart stents; Quintuple (5) Bypass; jl7 - Immunization history:: Adult Immunizations up to date. - Social history:: Smoking status: Patient/guardian denies using tobacco. - Ebola Screening: : No symptoms or risks identified at this time. ROS: 08:27 Constitutional: Negative for fever, chills, and weight loss, Eyes: Negative for injury, ps1 pain, redness, and discharge, Cardiovascular: Negative for chest pain, palpitations, and edema, Abdomen/GI: Negative for abdominal pain, nausea, vomiting, diarrhea, and constipation, Back: Negative for injury and pain, MS/Extremity: Negative for injury and deformity, Skin: Negative for injury, rash, and discoloration. 08:27 ENT: Positive for rhinorrhea, sinus congestion. 08:27 Respiratory: Positive for cough, with no reported sputum. Exam: 08:27 Constitutional: This is a well developed, well nourished patient who is awake, alert, ps1 and in no acute distress. Head/Face: Normocephalic, atraumatic. Eyes: Pupils equal round and reactive to light, extra-ocular motions intact. Lids and lashes normal. Conjunctiva and sclera are non-icteric and not injected. Cardiovascular: Regular rate and rhythm. No gallops, murmurs, or rubs. Normal PMI, no JVD. No pulse deficits. Respiratory: Lungs have equal breath sounds bilaterally, clear to auscultation and percussion. No rales, rhonchi or wheezes noted. No increased work of breathing, no retractions or nasal flaring. Abdomen/GI: Soft, non-tender, with normal bowel sounds. No distension or tympany. No guarding or rebound. No evidence of tenderness throughout. Skin: Warm, dry with normal turgor. Normal color with no rashes, no lesions, and no evidence of cellulitis. MS/ Extremity: Pulses equal, no cyanosis. Neurovascular intact. Full, normal range of motion. Neuro: Awake and alert, GCS 15, oriented to person, place, time, and situation. Cranial nerves II-XII grossly intact. Sensory grossly intact. 08:27 Chest/axilla: Inspection: scar from midline sternotomy, Palpation: is normal. Vital Signs: 08:10 BP 118 / 66; Pulse 80; Resp 26 S; Temp 97.6(O); Pulse Ox 99% on R/A; Weight 90.72 kg jl7 (R); Height 6 ft. (182.88 cm) (R); Pain 10/10; 09:30 BP 121 / 70; Pulse 80; Resp 22 S; Pulse Ox 98% on 2 lpm NC; jl7 10:20 BP 112 / 72; Pulse 68; Resp 23 S; Pulse Ox 100% on 2 lpm NC; jl7 11:30 BP 112 / 76; Pulse 69; Resp 18 S; Pulse Ox 99% on 2 lpm NC; jl7 12:30 BP 114 / 76; Pulse 79; Resp 16 S; Pulse Ox 97% on 2 lpm NC; Pain 0/10; jl7 08:10 Body Mass Index 27.12 (90.72 kg, 182.88 cm) 7 MDM: 08:27 Patient medically screened. ps1 07/01 08:09 Order name: CBC with Diff; Complete Time: 08:32 ps1 07/01 08:09 Order name: Magnesium; Complete Time: 08:59 ps1 07/01 08:09 Order name: NT PRO-BNP; Complete Time: 08:59 ps1 07/01 08:09 Order name: PT-INR; Complete Time: 08:32 ps1 07/01 08:09 Order name: Troponin (emerg Dept Use Only); Complete Time: 08:59 ps1 07/01 08:09 Order name: CMP; Complete Time: 08:59 ps1 07/01 08:09 Order name: XRAY Chest (1 view); Complete Time: 12:04 ps1 07/01 08:09 Order name: EKG; Complete Time: 08:10 ps1 07/01 09:11 Order name: Urine Dipstick--Ancillary (enter results); Complete Time: 09:40 eb 07/01 11:17 Order name: Procalcitonin; Complete Time: 12:43 EDMS 07/01 11:55 Order name: Thorax Wo Con; Complete Time: 12:43 EDMS 07/01 08:09 Order name: Cardiac monitoring; Complete Time: 08:22 ps1 07/01 08:09 Order name: EKG - Nurse/Tech; Complete Time: 08:22 ps1 07/01 08:09 Order name: IV Saline Lock; Complete Time: 08:21 ps1 07/01 08:09 Order name: Labs collected and sent; Complete Time: 08:22 ps1 07/01 08:09 Order name: O2 Per Protocol; Complete Time: 08: ps1 07/01 08:09 Order name: O2 Sat Monitoring; Complete Time: 08:21 ps1 07/01 08:11 Order name: Urine Dipstick-Ancillary (obtain specimen); Complete Time: 09:08 ps1 Administered Medications: 10:10 Drug: Rocephin 1 grams Route: IV; Rate: calculated rate; Site: right wrist; jl7 10:13 Follow up: Response: No adverse reaction; IV Status: Completed infusion jl7 10:15 Drug: AZITHromycin 500 mg Route: IVPB; Infused Over: 1 hrs; Site: right wrist; jl7 11:15 Follow up: Response: No adverse reaction; IV Status: Completed infusion jl7 10:17 Not Given (Other Intervention Used): Rocephin - (cefTRIAXone) 1 grams IVPB once over 30 jl7 mins; (mix in 50 mL NS) Disposition: 07/01/18 11:06 Hospitalization ordered by Briseida Murray for Observation. Preliminary diagnosis are Right lower lobe pneumonia, elevated troponin. - Bed requested for Telemetry/MedSurg (observation). - Status is Observation. jl7 - Condition is Stable. - Problem is an ongoing problem. - Symptoms have worsened. UTI on Admission? No Signatures: Dispatcher [employer] Lizeth Isbell RN RN dw Ranjeet White RN RN jl7 Bentley Pulido MD MD ps1 Corrections: (The following items were deleted from the chart) 12:14 11:06 Hospitalization Ordered by Briseida Murray MD for Observation. Preliminary dw diagnosis is Right lower lobe pneumonia; elevated troponin. Bed requested for Telemetry/MedSurg (observation). Status is Observation. Condition is Stable. Problem is an ongoing problem. Symptoms have worsened. UTI on Admission? No. ps1 13:07 12:14 07/01/2018 11:06 Hospitalization Ordered by Briseida Murray MD for Observation. jl7 Preliminary diagnosis is Right lower lobe pneumonia; elevated troponin. Bed requested for Telemetry/MedSurg (observation). Status is Observation. Condition is Stable. Problem is an ongoing problem. Symptoms have worsened. UTI on Admission? No. dw
--- NOTE | 2018-07-01 11:07 | ER ---
Nurse's Notes [facility] Name: Cuco Escobar Age: 78 yrs Sex: Male : 1940 Arrival Date: 07/01/2018 Time: 07:50 Bed 5 Private MD: Levi Morgan H Diagnosis: Right lower lobe pneumonia;elevated troponin Presentation: 07/01 08:07 Presenting complaint: Patient states: Cough started about a week ago, "My head down to jl7 my stomach hurts when I cough and I have to hold my stomach when I cough." Pt states "I can feel my defibrillator firing up but it hasn't shocked me.". Transition of care: patient was not received from another setting of care. Onset of symptoms was June 24, 2018. Risk Assessment: Do you want to hurt yourself or someone else? Patient reports no desire to harm self or others. Initial Sepsis Screen: Does the patient meet any 2 criteria? No. Patient's initial sepsis screen is negative. Does the patient have a suspected source of infection? No. Patient's initial sepsis screen is negative. Care prior to arrival: None. 08:07 Method Of Arrival: Ambulatory jl7 08:07 Acuity: SONY 3 jl7 Triage Assessment: 08:10 General: Appears in no apparent distress. uncomfortable, Behavior is calm, cooperative, jl7 appropriate for age. Pain: Complains of pain in From head to abdomen when coughing Pain currently is 0 out of 10 on a pain scale. at worst was 10 out of 10 on a pain scale. Pain began 1 week ago Is episodic. EENT: No signs and/or symptoms were reported regarding the EENT system. Neuro: Level of Consciousness is awake, alert, obeys commands, Oriented to person, place, time, situation. Cardiovascular: Denies chest pain, diaphoresis, lightheadedness, nausea, Heart tones present Murmur absent Patient's skin is warm and dry. Rhythm is regular Chest pain is denied. Respiratory: Reports cough that is non-productive, Airway is patent Respiratory effort is even, unlabored, Respiratory pattern is symmetrical, tachypnea Breath sounds are clear bilaterally. GI: No signs and/or symptoms were reported involving the gastrointestinal system. : No signs and/or symptoms were reported regarding the genitourinary system. Derm: Skin is pink, warm \\T\\ dry. Musculoskeletal: No signs and/or symptoms reported regarding the musculoskeletal system. Historical: - Allergies: 08:10 No Known Allergies; jl7 - Home Meds: 08:30 amiodarone 200 mg Oral tab 1 tab 2 times per day [Active]; atorvastatin 20 mg oral tab jl7 1 tab once daily [Active]; furosemide 40 mg Oral tab 1 tab once daily [Active]; allopurinol 300 mg Oral tab 1 tab once daily [Active]; balsalazide 750 mg oral cap 2 caps BID [Active]; Colestid 1 gram Oral tab [Active]; glimepiride 2 mg Oral tab 1 tab once daily [Active]; lisinopril 2.5 mg Oral tab 1 tab once daily [Active]; Nitrostat 0.4 mg SL subl 1 tab every 5 minutes [Active]; spironolactone 25 mg Oral tab 1 tab once daily [Active]; aspirin 81 mg Oral chew 1 tab once daily [Active]; Januvia 100 mg oral tab 1 tab once daily [Active]; CoQ-10 oral oral [Active]; Vitamin Oral tab 1 tab once daily [Active]; HMB [Active]; - PMHx: 08:30 Gout; Atrial Fib; Heart Murmur; [place]; Hyperlipidemia; Hypertension; Crohn's; Diabetes - jl7 NIDDM; CHF; - PSHx: 08:30 Cholecystectomy; Bowel resection; Heart stents; Quintuple (5) Bypass; jl7 - Immunization history:: Adult Immunizations up to date. - Social history:: Smoking status: Patient/guardian denies using tobacco. - Ebola Screening: : No symptoms or risks identified at this time. Screenin:31 Abuse screen: Denies threats or abuse. Denies injuries from another. Nutritional jl7 screening: No deficits noted. Tuberculosis screening: No symptoms or risk factors identified. Fall Risk IV access (20 points). Total Gutiérrez Fall Scale indicates No Risk (0-24 pts). Assessment: 08:31 General: See triage assessment. jl7 09:30 Reassessment: Patient appears in no apparent distress at this time. No changes from jl7 previously documented assessment. Patient and/or family updated on plan of care and expected duration. Pain level reassessed. Patient is alert, oriented x 3, equal unlabored respirations, skin warm/dry/pink. 10:30 Reassessment: Patient appears in no apparent distress at this time. Patient and/or jl7 family updated on plan of care and expected duration. Pain level reassessed. Patient is alert, oriented x 3, equal unlabored respirations, skin warm/dry/pink. 11:30 Reassessment: Patient appears in no apparent distress at this time. No changes from jl7 previously documented assessment. Patient and/or family updated on plan of care and expected duration. Pain level reassessed. Patient is alert, oriented x 3, equal unlabored respirations, skin warm/dry/pink. 12:30 Reassessment: Patient appears in no apparent distress at this time. Patient and/or jl7 family updated on plan of care and expected duration. Pain level reassessed. Patient is alert, oriented x 3, equal unlabored respirations, skin warm/dry/pink. Patient denies pain at this time. Vital Signs: 08:10 BP 118 / 66; Pulse 80; Resp 26 S; Temp 97.6(O); Pulse Ox 99% on R/A; Weight 90.72 kg jl7 (R); Height 6 ft. (182.88 cm) (R); Pain 10/10; 09:30 BP 121 / 70; Pulse 80; Resp 22 S; Pulse Ox 98% on 2 lpm NC; jl7 10:20 BP 112 / 72; Pulse 68; Resp 23 S; Pulse Ox 100% on 2 lpm NC; jl7 11:30 BP 112 / 76; Pulse 69; Resp 18 S; Pulse Ox 99% on 2 lpm NC; jl7 12:30 BP 114 / 76; Pulse 79; Resp 16 S; Pulse Ox 97% on 2 lpm NC; Pain 0/10; jl7 08:10 Body Mass Index 27.12 (90.72 kg, 182.88 cm) jl7 ED Course: 07:50 Patient arrived in ED. mr 07:51 Levi Morgan MD is Private Physician. mr 07:53 Ranjeet White, OZZY is Primary Nurse. jl7 07:57 Bentley Pulido MD is Attending Physician. ps1 08:09 Triage completed. jl7 08:10 Arm band placed on right wrist. Patient placed in an exam room, on a stretcher, on jl7 court monitor, on pulse oximetry. 08:15 Initial lab(s) drawn, by mn, sent to lab. Inserted saline lock: 20 gauge in right aa5 forearm, using aseptic technique. Blood collected. 08:22 EKG done, by ED staff, reviewed by Bentley Pulido MD. jb1 08:26 XRAY Chest (1 view) In Process Unspecified. EDMS 08:31 Patient has correct armband on for positive identification. Placed in gown. Bed in low jl7 position. Call light in reach. Side rails up X 1. shelter monitor on. Pulse ox on. NIBP on. Warm blanket given. 09:08 Urine collected: clean catch specimen, clear, migdalia colored. jb1 11:05 Briseida Murray MD is Hospitalizing Provider. ps1 12:40 Patient admitted, IV remains in place. intact, No redness/swelling at site. jl7 12:40 No provider procedures requiring assistance completed. jl7 Administered Medications: 10:10 Drug: Rocephin 1 grams Route: IV; Rate: calculated rate; Site: right wrist; jl7 10:13 Follow up: Response: No adverse reaction; IV Status: Completed infusion jl7 10:15 Drug: AZITHromycin 500 mg Route: IVPB; Infused Over: 1 hrs; Site: right wrist; jl7 11:15 Follow up: Response: No adverse reaction; IV Status: Completed infusion jl7 10:17 Not Given (Other Intervention Used): Rocephin - (cefTRIAXone) 1 grams IVPB once over 30 jl7 mins; (mix in 50 mL NS) Outcome: 11:06 Decision to Hospitalize by Provider. ps1 13:06 Admitted to Tele accompanied by tech, family with patient, via wheelchair, room 409, jl7 with oxygen, with chart, Report called to Floor nurse 13:06 Condition: stable 13:06 Discharge instructions given to patient, family, Instructed on the need for admit, Demonstrated understanding of instructions. 13:07 Patient left the ED. jl7 Signatures: Dispatcher [employer] EDMS Taz Jo jb1 So Gómez, Reina, RN RN aa5 Ranjeet White RN RN jl7 Bentley Pulido MD MD ps1 Corrections: (The following items were deleted from the chart) 12:38 10:20 BP 112 / 72; Pulse 68bpm; Resp 23bpm; Spontaneous; Pulse Ox 100% RA; jl7 jl7 09:30 BP 121 / 70; Pulse 80bpm; Resp 22bpm; Spontaneous; Pulse Ox 98% RA; 7 jl7 11:30 No provider procedures requiring assistance completed. jl7 jl7 11:30 Patient admitted, IV remains in place. intact, No redness/swelling at site. jl7 jl7
--- NOTE | 2018-07-01 11:08 | RAD REPORT ---
EXAM DESCRIPTION: Fran Single View07/01/2018 8:27 am CLINICAL HISTORY: Chest pain COMPARISON: June 28 FINDINGS: Bilateral pulmonary opacities right greater than left. Heart is moderately to markedly enl arged. Pacemaker leads in place Postsurgical changes involve the chest. IMPRESSION: Bilateral pulmonary opacities right greater than left could represent pulmonary edema or pneumonia
--- NOTE | 2018-07-01 12:20 | P.HP ---
Certification for Inpatient Patient admitted to: Observation With expected LOS: <2 Midnights Patient will require the following post-hospital care: None Practitioner: I am a practitioner with admitting privileges, knowledge of patient current condition, hospital course, and medical plan of care. Services: Services provided to patient in accordance with Admission requirements found in Title 42 Section 412.3 of the Code of Federal Regulations Patient History Date of Service: 07/01/18 Primary Care Provider: Dr Garcia Reason for admission: SOB History of Present Illness: 78 y/o M with H/o CABG in 1989, CHF, HTN and diabetes Coming to ER with SOB x 2 weeks. progressively getting worse. Now complaining of cough since 1 week. Nonproductive in Nature. Allergies No Known Allergies Allergy (Verified 11/30/17 07:21) Home Medications: Empagliflozin [Jardiance] 4 tab PO DAILY 11/30/17 Famotidine [Pepcid] 1 tab PO BID 11/30/17 Furosemide [Lasix] 1 tab PO BID 11/30/17 RX: Allopurinol [Zyloprim*] 1 tab PO DAILY 11/30/17 RX: Aspirin [Aspir-Low] 1 tab PO DAILY 11/30/17 RX: Atorvastatin Calcium 1 tab PO DAILY 11/30/17 RX: Balsalazide Disodium 2 tab PO BID 11/30/17 RX: Carvedilol [Coreg*] 1 tab PO BID 11/30/17 RX: Glimepiride [Amaryl*] 2 tab PO BID 11/30/17 RX: Lisinopril 1 tab PO DAILY 11/30/17 RX: Spironolactone [Aldactone*] 1 tab PO DAILY 11/30/17 Sitagliptin Phosphate [Januvia*] 1 tab PO DAILY 11/30/17 Review of Systems 10-point ROS is otherwise unremarkable Physical Examination - Physical Exam General: Alert, Acute distress HEENT: Atraumatic, PERRLA, Mucous membr. moist/pink, EOMI, Sclerae nonicteric Neck: Supple, 2+ carotid pulse no bruit, No LAD, Without JVD or thyroid abnormality Respiratory: Normal air movement, Crackles/rales, Expiratory wheezes, Inspiratory wheezes Cardiovascular: Regular rate/rhythm, Normal S1 S2 Gastrointestinal: Normal bowel sounds, No tenderness Musculoskeletal: No tenderness Integumentary: No rashes Neurological: Normal speech, Normal tone Lymphatics: No axilla or inguinal lymphadenopathy - Studies Laboratory Data (last 24 hrs) 07/01/18 08:08: PT 14.4 H, INR 1.22 07/01/18 08:08: WBC 6.9, Hgb 13.9, Hct 41.6, Plt Count 217 07/01/18 08:08: Sodium 138, Potassium 4.2, BUN 24 H, Creatinine 1.03, Glucose 245 H, Magnesium 2.2, Total Bilirubin 0.5, AST 63 H, ALT 73, Alkaline Phosphatase 76 Assessment and Plan - Problems (Diagnosis) (1) CHF exacerbation Current Visit: Yes Status: Acute Plan: Acute Exacerbation of CHF -cardiology consulted. Awaiting reccs -IV lasix for now -ECHO pending -Most likely class 3 [facility] HF will need ELVER, Spironolactone and BB -Chest CT pending Qualifiers: Heart failure type: unspecified Qualified Code(s): I50.9 - Heart failure, unspecified (2) PNA (pneumonia) Current Visit: Yes Status: Acute Plan: Left lower lung base Opacity concern for PNA -IV levaquin for now -Procal Ordered -Blood Cutlure and sputum Culture pending -No WBC elevation Qualifiers: Pneumonia type: due to unspecified organism Laterality: unspecified laterality Lung location: unspecified part of lung Qualified Code(s): J18.9 - Pneumonia, unspecified organism (3) HTN (hypertension) Current Visit: Yes Status: Chronic Plan: Restart Home medication Qualifiers: Hypertension type: essential hypertension Qualified Code(s): I10 - Essential (primary) hypertension (4) Diabetes Current Visit: Yes Status: Chronic Plan: Started ISS Qualifiers: Diabetes mellitus type: type 2 Diabetes mellitus mcc insulin use: without contact center team lead use Diabetes mellitus complication status: without complication Qualified Code(s): E11.9 - Type 2 diabetes mellitus without complications (5) S/P CABG x 5 Current Visit: Yes Status: Acute - Plan Admit to Med surg for further treatment of CHF exacerbation and PNA Discharge Plan: Other Plan to discharge in: 72 Hours - Advance Directives Does patient have a Living Will: Yes Does patient have a Durable POA for Healthcare: Yes - Code Status/Comfort Care Code Status Assessed: Yes Critical Care: No
--- NOTE | 2018-07-01 12:27 | RAD REPORT ---
EXAM DESCRIPTION: CT - Thorax Wo Con - 07/01/2018 12:13 pm CLINICAL HISTORY: sob COMPARISON: July 01, 2018 chest x-ray TECHNIQUE: Computed axial tomography of the chest was obtained. Contrast was not requested. All CT scans are performed using dose optimization technique as appropriate and may include automated exposure control or mA/KV adjustment according to patient size. FINDINGS: The evaluation of mediastinum, hector and vessels is limited secondary to lack of IV contras t administration. Moderate alveolar opacities are scattered within the right lung. Mild left upper lobe consolidation. No mediastinal or hilar lymphadenopathy is seen. Small bilateral pleural effusions. The heart is considerably enlarged. Coronary arterial calcifications IMPRESSION: Bilateral pulmonary alveolar opacities right greater than left have the appearance of pn eumonia
[2018-07-01] MEDS ORDERED: ACETAMINOPHEN 500 MG TAB PO PRN (13:08)
[2018-07-01] MEDS ORDERED: ONDANSETRON 4 MG/2 ML VIAL IV PRN (13:08)
[2018-07-01] MEDS ORDERED: PROMETH/COD 6.25/10MG SYRUP 5ML PO PRN (13:08)
[2018-07-01 13:15] VITALS: BMI 27.1
[2018-07-01] MEDS: IPRATROPIUM BROM 0.5MG/2.5ML NEB SCH ×2 (16:56→20:00)
[2018-07-01] MEDS: LEVALBUTEROL 0.63 MG/3 ML NEB NEB SCH ×2 (16:56→20:00)
[2018-07-01] MEDS ORDERED: IPRATROPIUM BROM 0.5MG/2.5ML ONE (17:04)
[2018-07-01] MEDS ORDERED: LEVALBUTEROL 0.63 MG/3 ML NEB ONE (17:04)
[2018-07-01] MEDS: FUROSEMIDE 40 MG/4 ML VIAL IV SCH (17:12)
[2018-07-01] MEDS: INSULIN -REGULAR HUMAN 50 UNIT/0.5 ML ML SQ SCH ×2 (17:13→20:33)
[2018-07-01] MEDS: predniSONE 20 MG TAB PO SCH (20:33)
[2018-07-01] MEDS: HYDROCODONE/CHLORPHEN 5 ML/OSYR PO PRN (21:37)
[2018-07-02] MEDS: IPRATROPIUM BROM 0.5MG/2.5ML NEB SCH ×4 (01:22→19:22)
[2018-07-02] MEDS: LEVALBUTEROL 0.63 MG/3 ML NEB NEB SCH ×4 (01:22→19:23)
[2018-07-02] MEDS ORDERED: TEMAZEPAM 15 MG CAP PO ONE (01:40)
[2018-07-02 05:47] LABS: Absolute Lymphocytes (CBC) 0.3 K/uL (0.7-4.9); Absolute Monocytes 0.2 K/uL (0.1-1.3); Absolute Neutrophil 5.2 K/uL (1.8-8.0); Basophils % 0.2 % (0-1.3); Hematocrit 38.4 % (39.6-49.0); Lymphocytes % 5.5 % (15.3-44.8); MPV 8.8 fL (7.6-11.3); Monocytes % 3.3 % (3.3-12.3); RBC Red Blood Cell Count 4.19 M/uL (4.33-5.43)
[2018-07-02 06:06] LABS: Albumin 2.7 g/dL (3.4-5.0); Bilirubin Total 0.5 mg/dL (0.2-1.0); Magnesium 2.1 mg/dL (1.8-2.4); Phosphorus 3.2 mg/dL (2.5-4.9); Potassium 4.6 mmol/L (3.5-5.1); Protein, Total 6.2 g/dL (6.4-8.2); Troponin I 0.05 ng/mL (0.0-0.045)
[2018-07-02] MEDS: predniSONE 20 MG TAB PO SCH (08:30)
[2018-07-02] MEDS: INSULIN -REGULAR HUMAN 50 UNIT/0.5 ML ML SQ SCH ×4 (08:30→20:57)
[2018-07-02] MEDS: FUROSEMIDE 40 MG/4 ML VIAL IV SCH (08:31)
[2018-07-02] MEDS: HYDROCODONE/CHLORPHEN 5 ML/OSYR PO PRN (15:10)
[2018-07-02] MEDS: levoFLOXacin 250 MG TAB PO SCH (15:10)
--- NOTE | 2018-07-02 16:53 | P.PN ---
Subjective Date of Service: 07/02/18 Primary Care Provider: Dr Garcia Chief Complaint: SOB Pt seen and examined at bedside. Chart Reviewed. Case DW with Cardiology. Pt is upset about not having fan in the room. And was complaining about the food and stated "this hospital is Hopeless and you have all this foreigners working here that can not speak maltese" Pt once upset started having audible Wheezing. Pt was asked if we can do anything to calm him down and help him breath better he said no. Review of Systems 10-point ROS is otherwise unremarkable Physical Examination - Vital Signs Temperature: 96.2 F Blood Pressure: 120/66 Pulse: 92 Respirations: 24 Pulse Ox (%): 95 - Physical Exam General: Alert, In no apparent distress HEENT: Atraumatic, PERRLA, EOMI Neck: Supple, JVD not distended Respiratory: Normal air movement, Expiratory wheezes, Inspiratory wheezes Cardiovascular: Regular rate/rhythm, Normal S1 S2 Gastrointestinal: Normal bowel sounds, No tenderness Musculoskeletal: No tenderness Integumentary: No rashes Neurological: Normal speech, Normal tone, Normal affect Lymphatics: No axilla or inguinal lymphadenopathy - Studies Medications List Reviewed: Yes Assessment And Plan - Current Problems (Diagnosis) (1) PNA (pneumonia) Current Visit: Yes Status: Acute Plan: Left lower lung base Opacity concern for PNA with Audible Wheezing -Duonebs, and oxygen -IV levaquin for now -Sputum culture negative thus far Qualifiers: Pneumonia type: due to unspecified organism Laterality: unspecified laterality Lung location: unspecified part of lung Qualified Code(s): J18.9 - Pneumonia, unspecified organism (2) HTN (hypertension) Current Visit: Yes Status: Chronic Plan: Restart Home medication Qualifiers: Hypertension type: essential hypertension Qualified Code(s): I10 - Essential (primary) hypertension (3) Diabetes Current Visit: Yes Status: Chronic Plan: Started ISS Qualifiers: Diabetes mellitus type: type 2 Diabetes mellitus mcfp insulin use: without terminal supervisor use Diabetes mellitus complication status: without complication Qualified Code(s): E11.9 - Type 2 diabetes mellitus without complications (4) S/P CABG x 5 Current Visit: Yes Status: Acute (5) CHF (congestive heart failure) Current Visit: Yes Status: Acute Plan: -On Lasix and spironolactone -Cardiology consulted. Appreciated Reccs -ECHO poending Qualifiers: Heart failure type: systolic Heart failure chronicity: chronic Qualified Code(s): I50.22 - Chronic systolic (congestive) heart failure - Plan Pending Clinical Improvement Discharge Plan: Home Plan to discharge in: 48 Hours - Code Status/Comfort Care Code Status Assessed: No Critical Care: No
[2018-07-02] MEDS: FUROSEMIDE 40 MG TABLET PO SCH (17:12)
[2018-07-02] MEDS: ATORVASTATIN 20 MG TAB PO SCH (17:13)
[2018-07-02] MEDS: AMIODARONE HCL 200 MG TAB PO SCH ×2 (17:13→20:56)
[2018-07-02] MEDS: ALLOPURINOL 300 MG TAB PO SCH (17:14)
--- NOTE | 2018-07-02 17:28 | EKG ---
Test Date: 2018-07-01 Test Time: 17:09:53 Land Management Forester: REED OR WIND INSTRUMENT REPAIRER MEASUREMENT RESULTS: Intervals: Rate: 88 UT: 216 QRSD: 150 QT: 430 QTc: 520 [place]: P: 9 UT: 216 QRS: 85 T: 41 INTERPRETIVE STATEMENTS: Sinus rhythm with 1st degree AV block Possible Left atrial enlargement Right bundle branch block Inferior infarct, possibly acute Lateral injury pattern ACUTE VT Abnormal ECG No previous ECG available for comparison Electronically Signed On 07-02-18 17:18:12 ACCOUNTING ANALYST by Sean Gonzalez
--- NOTE | 2018-07-02 17:29 | EKG ---
Test Date: 2018-07-01 Test Time: 08:02:20 Blind Hanger: CARMELO MEASUREMENT RESULTS: Intervals: Rate: 81 MN: 180 QRSD: 190 QT: 480 QTc: 557 [place]: P: 3 MN: 180 QRS: 114 T: -6 INTERPRETIVE STATEMENTS: Normal sinus rhythm Possible Left atrial enlargement Right bundle branch block, plus right ventricular hypertrophy Inferior infarct, age undetermined Anterolateral infarct, age undetermined Abnormal ECG No previous ECG available for comparison Electronically Signed On 07-02-18 17:18:20 HIGH RISK OB by Sean Gonzalez
[2018-07-03] MEDS ORDERED: BENZONATATE 100 MG CAP PO PRN (01:15)
[2018-07-03] MEDS: LEVALBUTEROL 0.63 MG/3 ML NEB NEB SCH ×2 (01:30→07:48)
[2018-07-03] MEDS: IPRATROPIUM BROM 0.5MG/2.5ML NEB SCH ×2 (01:30→07:48)
--- NOTE | 2018-07-03 03:10 | CON ---
Date of Consultation: 07/01/[address] Murray's service on 07/01/2018. I saw the patient on 07/01/2018. Reason For Consultation: Congestive heart failure. History Of Present Illness: Mr. Escobar is a 78-year-old male, has a history of CAD, CHF, gout, atri al fibrillation, Crohn's. He has had a history of CAD, status post CABG and PCI. Has a history of d yslipidemia, hypertension, diabetes, came in with congestive heart failure, cough. Chest x-ray showe d bilateral pneumonia versus edema. CT of the chest showed bilateral pneumonia. He is now on antibi otics and inhalers as well as Lasix and is improving. Past Medical History: As stated above. Allergies: NONE. Review of Systems: Negative. Social History: Positive for remote tobacco. Family History: Positive for heart disease. Medications: Include amiodarone, Pepcid, Lasix, Amaryl, lisinopril, Januvia, Aldactone, Jardiance, C oreg, Lipitor, aspirin, and allopurinol. Physical Examination: Vital Signs: Stable. He was afebrile. He was in a sinus rhythm. HEENT: Negative. Neck: Supple with no bruit, lymphadenopathy, JVD, or thyromegaly. Chest: Reveals expiratory wheezing diffusely as well as rales bibasilar area. Cardiac: Revealed a regular rhythm and rate with an S4 gallops and aortic sclerosis murmur. Abdomen: Benign. Extremities: Revealed 1+ edema. Diagnostic Data: His chest x-ray and CT of the chest were as stated earlier. His glucose was 245. Troponin is 0.05. His BNP is 4388. Impression And Plan: 1.Acute exacerbation of chronic diastolic congestive heart failure. 2.Coronary artery disease, status post percutaneous coronary intervention and coronary artery bypass graft, stable. 3.Gout. 4.Atrial fibrillation, resolved on amiodarone. 5.History of Crohn disease. 6.Dyslipidemia. 7.Diabetes, well controlled. 8.Hypertension, well controlled. I agree with his present regimen. Continue his home medication, antibiotics, inhalers, Lasix. He wi ll need to have followup in the near future including echocardiography and Lexiscan, and I will make arrangements for that after he goes home. PAOLA/MODL Voice ID: [id number] Report ID: [id number]
[2018-07-03] MEDS: HYDROCODONE/CHLORPHEN 5 ML/OSYR PO PRN (03:26)
[2018-07-03 05:46] LABS: Absolute Lymphocytes (CBC) 0.8 K/uL (0.7-4.9); Absolute Monocytes 0.6 K/uL (0.1-1.3); Absolute Neutrophil 6.4 K/uL (1.8-8.0); Basophils % 0.3 % (0-1.3); Eosinophils % 0.9 % (0-4.4); Hematocrit 40.2 % (39.6-49.0); Lymphocytes % 10.3 % (15.3-44.8); MPV 8.8 fL (7.6-11.3); RBC Red Blood Cell Count 4.38 M/uL (4.33-5.43)
[2018-07-03 06:06] LABS: Albumin 2.9 g/dL (3.4-5.0); Bilirubin Total 0.6 mg/dL (0.2-1.0); Magnesium 2.1 mg/dL (1.8-2.4); Phosphorus 2.9 mg/dL (2.5-4.9); Potassium 3.7 mmol/L (3.5-5.1); Protein, Total 6.4 g/dL (6.4-8.2)
[2018-07-03] MEDS: FUROSEMIDE 40 MG TABLET PO SCH (06:35)
[2018-07-03] MEDS: INSULIN -REGULAR HUMAN 50 UNIT/0.5 ML ML SQ SCH (07:30)
[2018-07-03] MEDS: ALLOPURINOL 300 MG TAB PO SCH (08:33)
[2018-07-03] MEDS: ATORVASTATIN 20 MG TAB PO SCH (08:33)
[2018-07-03] MEDS: AMIODARONE HCL 200 MG TAB PO SCH (08:33)
[2018-07-03] MEDS: levoFLOXacin 250 MG TAB PO SCH (08:34)
[2018-07-03 08:50] VITALS: O2SAT 95
[2018-07-03] MEDS ORDERED: ASPIRIN EC 81 MG TAB PO SCH (09:00)
[2018-07-03] MEDS ORDERED: LISINOPRIL 5 MG TAB PO SCH (09:00)
[2018-07-03] MEDS ORDERED: POTASSIUM CL SA 10 MEQ TAB PO ONE (09:00)
--- NOTE | 2018-07-03 14:14 | P.DS ---
Admission Date: 07/01/18 Discharge Date: 07/03/18 Primary Care Provider: Dr Garcia Disposition: ROUTINE DISCHARGE Discharge Condition: GOOD Reason for Admission: SOB - Problems (1) PNA (pneumonia) Onset Date: 07/02/18 Status: Acute Qualifiers: Pneumonia type: due to unspecified organism Laterality: unspecified laterality Lung location: unspecified part of lung Qualified Code(s): J18.9 - Pneumonia, unspecified organism (2) HTN (hypertension) Onset Date: 07/02/18 Status: Chronic Qualifiers: Hypertension type: essential hypertension Qualified Code(s): I10 - Essential (primary) hypertension (3) Diabetes Onset Date: 07/02/18 Status: Chronic Qualifiers: Diabetes mellitus type: type 2 Diabetes mellitus senior living insulin use: without surgical corsetier use Diabetes mellitus complication status: without complication Qualified Code(s): E11.9 - Type 2 diabetes mellitus without complications (4) S/P CABG x 5 Onset Date: 07/02/18 Status: Acute (5) CHF (congestive heart failure) Onset Date: 07/02/18 Status: Acute Qualifiers: Heart failure type: systolic Heart failure chronicity: chronic Qualified Code(s): I50.22 - Chronic systolic (congestive) heart failure Brief History of Present Illness: 78 y/o M with H/o CABG in 1989, CHF, HTN and diabetes Coming to ER with SOB x 2 weeks. progressively getting worse. Now complaining of cough since 1 week. Nonproductive in Nature. Hospital Course: Overall during the hospital stay patient remained stable The patient was initially admitted to the hospital for respiratory distress most likely secondary to pneumonia versus CHF exacerbation. For CHF exacerbation patient was started on IV Lasix here in the hospital. Had marked resolution and improvement in the extremity. Cardiology was consulted who recommended to continue home medication as prescribed. Patient also had pneumonia on the chest CT was started on IV antibiotics. Patient had again marked improvement in his symptoms and thus was discharged home under stable condition. Patient was given prescription for oral antibiotics and was asked to continue them for total of 2 weeks. Patient was qualified for oxygen before going home on will repeat it not qualify due to his oxygen saturation on room air. Patient was asked to follow up with his primary care provider in about 1- 2 days post discharge of went straight home under stable condition Vital Signs/Physical Exam: Temp Pulse Resp BP Pulse Ox 98.5 F 78 24 H 107/64 95 12/24/18 08:00 07/03/18 08:32 07/03/18 08:00 07/03/18 08:32 07/03/18 08:00 General: Alert, In no apparent distress HEENT: Atraumatic, PERRLA, EOMI Neck: Supple, JVD not distended Respiratory: Clear to auscultation bilaterally, Normal air movement Cardiovascular: Regular rate/rhythm, Normal S1 S2 Gastrointestinal: Normal bowel sounds, No tenderness Musculoskeletal: No tenderness Integumentary: No rashes Neurological: Normal speech, Normal tone, Normal affect Lymphatics: No axilla or inguinal lymphadenopathy Laboratory Data at Discharge: WBC 8.0 K/uL (4.3-10.9) D 07/03/18 05:19 Hgb 13.5 g/dL (13.6-17.9) L 07/03/18 05:19 Hct 40.2 % (39.6-49.0) 07/03/18 05:19 Plt Count 221 K/uL (152-406) 07/03/18 05:19 PT 14.4 SECONDS (9.5-12.5) H 07/01/18 08:08 INR 1.22 07/01/18 08:08 Sodium 139 mmol/L (136-145) 07/03/18 05:19 Potassium 4.2 mmol/L (3.5-5.1) 07/03/18 07:47 BUN 28 mg/dL (7-18) H 07/03/18 05:19 Creatinine 1.10 mg/dL (0.55-1.3) 07/03/18 05:19 Glucose 172 mg/dL (74-106) H 07/03/18 05:19 Phosphorus 2.9 mg/dL (2.5-4.9) 07/03/18 05:19 Magnesium 2.1 mg/dL (1.8-2.4) 07/03/18 05:19 Total Bilirubin 0.6 mg/dL (0.2-1.0) 07/03/18 05:19 AST 72 U/L (15-37) H 07/03/18 05:19 ALT 93 U/L (12-78) H 07/03/18 05:19 Alkaline Phosphatase 80 U/L (45-117) 07/03/18 05:19 Troponin I 0.05 ng/mL (0.0-0.045) H 07/02/18 05:05 Home Medications: Allopurinol [Zyloprim*] 1 tab PO DAILY 11/30/17 Aspirin [Aspir-Low] 1 tab PO DAILY 11/30/17 Atorvastatin Calcium 1 tab PO DAILY 11/30/17 Balsalazide Disodium 2 tab PO BID 11/30/17 Furosemide [Lasix] 1 tab PO BID 11/30/17 Glimepiride [Amaryl*] 2 mg PO BID 11/30/17 Lisinopril 2.5 mg PO DAILY 11/30/17 Sitagliptin Phosphate [Januvia*] 1 tab PO DAILY 11/30/17 Spironolactone [Aldactone*] 1 tab PO M,W,F 11/30/17 Amiodarone HCl [Cordarone*] 1 tab PO BID 07/01/18 Atorvastatin Calcium [Lipitor*] 1 tab PO BEDTIME 07/01/18 Dexlansoprazole [Dexilant] 60 mg PO DAILY 07/01/18 Nitroglycerin [Nitrostat*] 1 tab PO PRN 07/01/18 Prenat Vit Comb.10/Iron/FA/Dha [Vitafol-Ob+Dha Combo Pack] 1 tab PO DAILY levoFLOXacin [Levaquin*] 250 mg PO DAILY #14 tab 07/03/18 New Medications: levoFLOXacin [Levaquin*] 250 mg PO DAILY #14 tab Diet: Regular Activity: Ad oscar Followup: Chi Ayala MD [ACTIVE - CAN ADMIT] - 1 Week (please call to schedule appointment)
[2018-07-03] MEDS ORDERED: SPIRONOLACTONE 25 MG TABLET PO SCH (17:00)
[2018-07-08 15:51] VITALS: BP 116/64; TEMP 97.8
== END 2018-07-03 10:50 | disposition home or self-care (01) ==
LOC: ER 07:48 → ERHOLD 11:50 → 4TH 12:47
PROVIDERS: ADMIT Family Medicine; ATTEND Family Medicine
DX: J18.9 Pneumonia, unspecified organism (principal); I11.0 Hypertensive heart disease with heart failure; I50.23 Acute on chronic systolic (congestive) heart failure; E11.9 Type 2 diabetes mellitus without complications; I25.10 Atherosclerotic heart disease of native coronary artery without angina pectoris; M10.9 Gout, unspecified; I48.91 Unspecified atrial fibrillation; Z95.1 Presence of aortocoronary bypass graft
CPT/HCPCS: 36415 ×2; 71045; 71250; 80053 ×3; 81003; 82962 ×8; 83735 ×3; 83880; 84100 ×2; 84132; 84145; 84484 ×4; 85025 ×3; 85610; 93005 ×2; 94640; 94760 ×5; 96365; 96375; 99285; G0378 ×2; J0456; J0696; J1940 ×2; J7512

== ENCOUNTER 2018-07-06 03:59 | Inpatient (IN) | payer OTHER ==
--- OUTSIDE RECORDS SUMMARY | 2018-07-06 04:02 | XMS REPORT ---
:1940 Author Organization [facility] Address [address] [place] [address] Dr. Hoffman. [address] [place] [address] Care Team Providers Name Role Phone ZHENG [...] VIEW, NON DEPT exam:->SOBShould this be ID: [id number] Portable performed at the chest CLINICAL HISTORY: bedside?->Yes Short of breath Comparison: 09/13/2017. FINDINGS: The cardiac silhouette is enlarged. The patient is status post sternotomy. A pacer device is seen. There are mild interstitial markings but no definite focal opacity, pleural effusion or pneumothorax. Degenerative changes are noted. IMPRESSION: No significant change. Signed: Gonzalo Rose Verified Date/Time: 09/14/2017 09:52:44 Reading Location: [facility] Diagnostic Imaging Reading Room - [place] [address] -GLUCOSE METER 2017-09-14 07:56:00 Test Item Value Reference Range Comments POC-GLUCOSE METER (BEAKER) (test 214 mg/dL 70-110 TESTED AT [address] pbab=0833) [facility] [address] POCT-GLUCOSE [id number] 07:17:00 Test Item Value Reference Range Comments POC-GLUCOSE METER (BEAKER) 184 mg/dL 70-110 TESTED AT [address] (test fryv=5343) [facility] [address] [id number] 05:37:00 Test Item Value Reference Range Comments MAGNESIUM (BEAKER) (test cufd=637) 1.9 mg/dL 1.6-2.6 BASIC METABOLIC [id number] 05:37:00 Test Item Value Reference Range Comments SODIUM (BEAKER) (test 137 meq/L 136-145 hvwu=380) POTASSIUM (BEAKER) (test 4.3 meq/L 3.5-5.1 omns=729) CHLORIDE (BEAKER) (test 101 meq/L 98-107 raiz=128) CO2 (BEAKER) (test 25 meq/L 22-29 xmmn=059) BLOOD UREA NITROGEN 31 mg/dL 7-21 (BEAKER) (test sakg=284) CREATININE (BEAKER) (test 1.13 mg/dL 0.57-1.25 xsuy=138) GLUCOSE RANDOM (BEAKER) 180 mg/dL 70-105 (test hrsy=727) CALCIUM (BEAKER) (test 9.9 mg/dL 8.4-10.2 kjcf=644) EGFR (BEAKER) (test 63 mL/min/1.73 sq m ESTIMATED GFR IS NOT jgnh=6648) ACCURATE CREATININE CLEARANCE IN PREDICTING GLOMERULAR FILTRATION RATE. ESTIMATED GFR IS NOT APPLICABLE FOR DIALYSIS PATIENTS. CBC W/PLT COUNT & AUTO [id number] 05:07:00 Test Item Value Reference Range Comments WHITE BLOOD CELL COUNT (BEAKER) (test lqxq=846) 4.7 K/ L 3.5-10.5 RED BLOOD CELL COUNT (BEAKER) (test pqvc=867) 4.57 M/ L 4.63-6.08 HEMOGLOBIN (BEAKER) (test bppi=728) 14.2 GM/DL 13.7-17.5 HEMATOCRIT (BEAKER) (test jfyq=250) 42.3 % 40.1-51.0 MEAN CORPUSCULAR VOLUME (BEAKER) (test hwwf=377) 92.6 fL 79.0-92.2 MEAN CORPUSCULAR HEMOGLOBIN (BEAKER) (test 31.1 pg 25.7-32.2 eaag=954) MEAN CORPUSCULAR HEMOGLOBIN CONC (BEAKER) (test 33.6 GM/DL 32.3-36.5 assv=596) RED CELL DISTRIBUTION WIDTH (BEAKER) (test 15.3 % 11.6-14.4 ozmu=986) PLATELET COUNT (BEAKER) (test rgan=072) 126 K/CU MM 150-450 MEAN PLATELET VOLUME (BEAKER) (test wstb=660) 10.5 fL 9.4-12.4 NUCLEATED RED BLOOD CELLS (BEAKER) (test 0 /100 WBC 0-0 kbqt=752) NEUTROPHILS RELATIVE PERCENT (BEAKER) (test 61 % ipuw=544) LYMPHOCYTES RELATIVE PERCENT (BEAKER) (test 26 % ucwr=849) MONOCYTES RELATIVE PERCENT (BEAKER) (test 10 % mdvo=811) EOSINOPHILS RELATIVE PERCENT (BEAKER) (test 2 % vmlu=559) BASOPHILS RELATIVE PERCENT (BEAKER) (test 1 % mfxv=876) NEUTROPHILS ABSOLUTE COUNT (BEAKER) (test 2.83 K/ L 1.78-5.38 knaf=436) LYMPHOCYTES ABSOLUTE COUNT (BEAKER) (test 1.24 K/ L 1.32-3.57 vtaw=374) MONOCYTES ABSOLUTE COUNT (BEAKER) (test 0.48 K/ L 0.30-0.82 jlve=404) EOSINOPHILS ABSOLUTE COUNT (BEAKER) (test 0.10 K/ L 0.04-0.54 aevt=054) BASOPHILS ABSOLUTE COUNT (BEAKER) (test 0.03 K/ L 0.01-0.08 bays=025) IMMATURE GRANULOCYTES-RELATIVE PERCENT (BEAKER) 0 % 0-1 (test wvjf=0977) POCT-GLUCOSE [id number] 18:32:00 Test Item Value Reference Range Comments POC-GLUCOSE METER (BEAKER) 230 mg/dL 70-110 TESTED AT [address] (test aljq=9404) [place] [id number] POCT-GLUCOSE [id number] 16:39:00 Test Item Value Reference Range Comments POC-GLUCOSE METER (BEAKER) 254 mg/dL 70-110 TESTED AT [address] (test bedh=2454) [place] [id number] POCT-GLUCOSE [id number] 12:51:00 Test Item Value Reference Range Comments POC-GLUCOSE METER (BEAKER) 326 mg/dL 70-110 TESTED AT [address] (test rkgg=5747) [place] [id number] RAD, CHEST, 1 VIEW, NON [id number] 09:57:00Reason for exam:->SOBShould this be performed at the bedside?->YesFINAL REPORT CLINICAL HISTORY: SOB TECHNIQUE: 1 view of the chest. COMPARISON: 09/09/2017 IMPRESSION: There are no focal infiltrates or effusions. The cardiomediastinal silhouetteis magnified by technique with sternotomy wires and a pacemaker. Signed: Daniel Lanza MDReport Verified Date/Time: 09/13/2017 09:57:46 Reading Location: [facility] Radiology Reading Room [id number] 04:43:00 Test Item Value Reference Range Comments MAGNESIUM (BEAKER) (test scim=262) 2.2 mg/dL 1.6-2.6 BASIC METABOLIC [id number] 04:43:00 Test Item Value Reference Range Comments SODIUM (BEAKER) (test 138 meq/L 136-145 oidk=276) POTASSIUM (BEAKER) (test 4.2 meq/L 3.5-5.1 dpla=345) CHLORIDE (BEAKER) (test 102 meq/L 98-107 hmgv=491) CO2 (BEAKER) (test 27 meq/L 22-29 lxtj=685) BLOOD UREA NITROGEN 25 mg/dL 7-21 (BEAKER) (test nkbs=203) CREATININE (BEAKER) (test 1.08 mg/dL 0.57-1.25 ibax=539) GLUCOSE RANDOM (BEAKER) 169 mg/dL 70-105 (test plez=952) CALCIUM (BEAKER) (test 9.9 mg/dL 8.4-10.2 mcpm=952) EGFR (BEAKER) (test 66 mL/min/1.73 sq m ESTIMATED GFR IS NOT lblk=5521) ACCURATE CREATININE CLEARANCE IN PREDICTING GLOMERULAR FILTRATION RATE. ESTIMATED GFR IS NOT APPLICABLE FOR DIALYSIS PATIENTS. CBC W/PLT COUNT & AUTO [id number] 04:23:00 Test Item Value Reference Range Comments WHITE BLOOD CELL COUNT (BEAKER) (test imrp=324) 5.6 K/ L 3.5-10.5 RED BLOOD CELL COUNT (BEAKER) (test dtxo=233) 4.81 M/ L 4.63-6.08 HEMOGLOBIN (BEAKER) (test hmlo=876) 14.9 GM/DL 13.7-17.5 HEMATOCRIT (BEAKER) (test ikav=571) 44.9 % 40.1-51.0 MEAN CORPUSCULAR VOLUME (BEAKER) (test gtsb=749) 93.3 fL 79.0-92.2 MEAN CORPUSCULAR HEMOGLOBIN (BEAKER) (test 31.0 pg 25.7-32.2 lleq=197) MEAN CORPUSCULAR HEMOGLOBIN CONC (BEAKER) (test 33.2 GM/DL 32.3-36.5 ifik=569) RED CELL DISTRIBUTION WIDTH (BEAKER) (test 15.3 % 11.6-14.4 tvys=563) PLATELET COUNT (BEAKER) (test kxoj=289) 144 K/CU MM 150-450 MEAN PLATELET VOLUME (BEAKER) (test wdvh=930) 10.7 fL 9.4-12.4 NUCLEATED RED BLOOD CELLS (BEAKER) (test 0 /100 WBC 0-0 lxbl=228) NEUTROPHILS RELATIVE PERCENT (BEAKER) (test 65 % lmoh=545) LYMPHOCYTES RELATIVE PERCENT (BEAKER) (test 22 % llcn=557) MONOCYTES RELATIVE PERCENT (BEAKER) (test 11 % tqjd=636) EOSINOPHILS RELATIVE PERCENT (BEAKER) (test 2 % peua=505) BASOPHILS RELATIVE PERCENT (BEAKER) (test 1 % ufoh=183) NEUTROPHILS ABSOLUTE COUNT (BEAKER) (test 3.63 K/ L 1.78-5.38 roob=651) LYMPHOCYTES ABSOLUTE COUNT (BEAKER) (test 1.24 K/ L 1.32-3.57 ijlf=892) MONOCYTES ABSOLUTE COUNT (BEAKER) (test 0.61 K/ L 0.30-0.82 anhs=889) EOSINOPHILS ABSOLUTE COUNT (BEAKER) (test 0.10 K/ L 0.04-0.54 enna=491) BASOPHILS ABSOLUTE COUNT (BEAKER) (test 0.03 K/ L 0.01-0.08 nnhx=337) IMMATURE GRANULOCYTES-RELATIVE PERCENT (BEAKER) 0 % 0-1 (test vcrz=0067) POCT-GLUCOSE [id number] 22:01:00 Test Item Value Reference Range Comments POC-GLUCOSE METER (BEAKER) 141 mg/dL 70-[address] [facility] [address] [facility] (test zcco=0360) [facility] [address] POCT-GLUCOSE [id number] 14:30:00 Test Item Value Reference Range Comments POC-GLUCOSE METER (BEAKER) 133 mg/dL 70-[address] [facility] [address] [facility] (test ehil=0006) [facility] [address] POCT-GLUCOSE [id number] 08:06:00 Test Item Value Reference Range Comments POC-GLUCOSE METER (BEAKER) 175 mg/dL 70-110 TESTED AT [place] [id number] [facility] (test jwzc=2311) [facility] [address] [id number] 06:06:00 Test Item Value Reference Range Comments MAGNESIUM (BEAKER) (test 2.1 mg/dL 1.6-2.6 Specimen slightly hemolyzed pyec=467) BASIC METABOLIC [id number] 06:06:00 Test Item Value Reference Range Comments SODIUM (BEAKER) (test 135 meq/L 136-145 thep=993) POTASSIUM (BEAKER) (test 4.3 meq/L 3.5-5.1 Specimen slightly sokk=927) hemolyzed CHLORIDE (BEAKER) (test 103 meq/L 98-107 hhfn=734) CO2 (BEAKER) (test 22 meq/L 22-29 pdzl=879) BLOOD UREA NITROGEN 33 mg/dL 7-21 (BEAKER) (test mzjn=725) CREATININE (BEAKER) (test 1.11 mg/dL 0.57-1.25 Specimen slightly mlmf=748) hemolyzed GLUCOSE RANDOM (BEAKER) 156 mg/dL 70-105 (test kjdu=731) CALCIUM (BEAKER) (test 9.9 mg/dL 8.4-10.2 ncnm=970) EGFR (BEAKER) (test 64 mL/min/1.73 sq m ESTIMATED GFR IS NOT stwj=7314) ACCURATE CREATININE CLEARANCE IN PREDICTING GLOMERULAR FILTRATION RATE. ESTIMATED GFR IS NOT APPLICABLE FOR DIALYSIS PATIENTS. CBC W/PLT COUNT & AUTO [id number] 05:05:00 Test Item Value Reference Range Comments WHITE BLOOD CELL COUNT (BEAKER) (test tiao=919) 5.2 K/ L 3.5-10.5 RED BLOOD CELL COUNT (BEAKER) (test mvej=348) 4.65 M/ L 4.63-6.08 HEMOGLOBIN (BEAKER) (test wzth=388) 14.3 GM/DL 13.7-17.5 HEMATOCRIT (BEAKER) (test kpgs=389) 43.2 % 40.1-51.0 MEAN CORPUSCULAR VOLUME (BEAKER) (test bgku=217) 92.9 fL 79.0-92.2 MEAN CORPUSCULAR HEMOGLOBIN (BEAKER) (test 30.8 pg 25.7-32.2 cjin=120) MEAN CORPUSCULAR HEMOGLOBIN CONC (BEAKER) (test 33.1 GM/DL 32.3-36.5 ymql=851) RED CELL DISTRIBUTION WIDTH (BEAKER) (test 15.7 % 11.6-14.4 vhsy=756) PLATELET COUNT (BEAKER) (test dihy=242) 132 K/CU MM 150-450 MEAN PLATELET VOLUME (BEAKER) (test zazq=986) 10.4 fL 9.4-12.4 NUCLEATED RED BLOOD CELLS (BEAKER) (test 0 /100 WBC 0-0 jqkn=119) NEUTROPHILS RELATIVE PERCENT (BEAKER) (test 64 % fvmb=433) LYMPHOCYTES RELATIVE PERCENT (BEAKER) (test 24 % zcyj=426) MONOCYTES RELATIVE PERCENT (BEAKER) (test 10 % ucuf=782) EOSINOPHILS RELATIVE PERCENT (BEAKER) (test 1 % kagz=080) BASOPHILS RELATIVE PERCENT (BEAKER) (test 1 % eyvj=374) NEUTROPHILS ABSOLUTE COUNT (BEAKER) (test 3.31 K/ L 1.78-5.38 kklg=753) LYMPHOCYTES ABSOLUTE COUNT (BEAKER) (test 1.24 K/ L 1.32-3.57 ugtw=361) MONOCYTES ABSOLUTE COUNT (BEAKER) (test 0.49 K/ L 0.30-0.82 idhi=451) EOSINOPHILS ABSOLUTE COUNT (BEAKER) (test 0.07 K/ L 0.04-0.54 dajw=093) BASOPHILS ABSOLUTE COUNT (BEAKER) (test 0.04 K/ L 0.01-0.08 dgyn=119) IMMATURE GRANULOCYTES-RELATIVE PERCENT (BEAKER) 0 % 0-1 (test hjta=7111) [id number] 23:26:00 Test Item Value Reference Range Comments MAGNESIUM (BEAKER) (test qoum=302) 2.1 mg/dL 1.6-2.6 BASIC METABOLIC [id number] 23:26:00 Test Item Value Reference Range Comments SODIUM (BEAKER) (test 136 meq/L 136-145 jize=023) POTASSIUM (BEAKER) (test 4.3 meq/L 3.5-5.1 gevg=051) CHLORIDE (BEAKER) (test 101 meq/L 98-107 iaro=014) CO2 (BEAKER) (test 25 meq/L 22-29 lhaw=308) BLOOD UREA NITROGEN 36 mg/dL 7-21 (BEAKER) (test enjp=692) CREATININE (BEAKER) (test 1.14 mg/dL 0.57-1.25 zifb=845) GLUCOSE RANDOM (BEAKER) 148 mg/dL 70-105 (test reqh=420) CALCIUM (BEAKER) (test 10.3 mg/dL 8.4-10.2 rhlr=406) EGFR (BEAKER) (test 62 mL/min/1.73 sq m ESTIMATED GFR IS NOT ufrh=8195) ACCURATE CREATININE CLEARANCE IN PREDICTING GLOMERULAR FILTRATION RATE. ESTIMATED GFR IS NOT APPLICABLE FOR DIALYSIS PATIENTS. POCT-GLUCOSE [id number] 23:05:00 Test Item Value Reference Range Comments POC-GLUCOSE METER (BEAKER) 169 mg/dL 70-110 TESTED AT [address] (test zsts=9175) [place] [address] POCT-GLUCOSE [id number] 17:13:00 Test Item Value Reference Range Comments POC-GLUCOSE METER (BEAKER) 243 mg/dL 70-110 TESTED AT [address] (test nqtc=1841) [place] [id number] POCT-GLUCOSE [id number] 11:56:00 Test Item Value Reference Range Comments POC-GLUCOSE METER (BEAKER) 182 mg/dL 70-110 TESTED AT [address] (test dqcx=0493) [place] [address] POCT-GLUCOSE [id number] 07:56:00 Test Item Value Reference Range Comments POC-GLUCOSE METER (BEAKER) 197 mg/dL 70-110 TESTED AT [address] (test niuu=4946) [place] [address] [id number] 04:48:00 Test Item Value Reference Range Comments MAGNESIUM (BEAKER) (test ipdv=195) 2.2 mg/dL 1.6-2.6 BASIC METABOLIC [id number] 04:48:00 Test Item Value Reference Range Comments SODIUM (BEAKER) (test 137 meq/L 136-145 xels=428) POTASSIUM (BEAKER) (test 4.4 meq/L 3.5-5.1 fqje=854) CHLORIDE (BEAKER) (test 106 meq/L 98-107 fhjb=752) CO2 (BEAKER) (test 23 meq/L 22-29 spqa=683) BLOOD UREA NITROGEN 34 mg/dL 7-21 (BEAKER) (test lsyu=423) CREATININE (BEAKER) (test 1.14 mg/dL 0.57-1.25 awbo=281) GLUCOSE RANDOM (BEAKER) 160 mg/dL 70-105 (test xmbl=120) CALCIUM (BEAKER) (test 9.8 mg/dL 8.4-10.2 hvcz=730) EGFR (BEAKER) (test 62 mL/min/1.73 sq m ESTIMATED GFR IS NOT iiux=5106) ACCURATE CREATININE CLEARANCE IN PREDICTING GLOMERULAR FILTRATION RATE. ESTIMATED GFR IS NOT APPLICABLE FOR DIALYSIS PATIENTS. [id number] 04:29:00 Test Item Value Reference Range Comments PARTIAL THROMBOPLASTIN TIME (BEAKER) (test 26.5 seconds 22.5-36.0 uutg=163) PROTHROMBIN TIME/[id number] 04:28:00 Test Item Value Reference Range Comments PROTIME (BEAKER) (test tifi=608) 14.4 seconds 11.7-14.7 INR (BEAKER) (test uuai=418) 1.1 <=5.9 RECOMMENDED COUMADIN/WARFARIN INR THERAPY RANGESSTANDARD DOSE: 2.0 - 3.0 Includes: PROPHYLAXIS forvenous thrombosis, systemic embolization; TREATMENT for venous thrombosis and/or pulmonary embolus.HIGH RISK: Target INR is 2.5-3.5 for patients with mechanical heart valves.CBC W/PLT COUNT & AUTO [id number] 04:05:00 Test Item Value Reference Range Comments WHITE BLOOD CELL COUNT (BEAKER) (test eyeo=002) 5.2 K/ L 3.5-10.5 RED BLOOD CELL COUNT (BEAKER) (test lleu=067) 4.65 M/ L 4.63-6.08 HEMOGLOBIN (BEAKER) (test cmxm=723) 14.2 GM/DL 13.7-17.5 HEMATOCRIT (BEAKER) (test uono=539) 43.2 % 40.1-51.0 MEAN CORPUSCULAR VOLUME (BEAKER) (test squt=039) 92.9 fL 79.0-92.2 MEAN CORPUSCULAR HEMOGLOBIN (BEAKER) (test 30.5 pg 25.7-32.2 sitm=609) MEAN CORPUSCULAR HEMOGLOBIN CONC (BEAKER) (test 32.9 GM/DL 32.3-36.5 lzeo=473) RED CELL DISTRIBUTION WIDTH (BEAKER) (test 15.8 % 11.6-14.4 vdud=456) PLATELET COUNT (BEAKER) (test iawh=047) 141 K/CU MM 150-450 MEAN PLATELET VOLUME (BEAKER) (test ugne=874) 10.7 fL 9.4-12.4 NUCLEATED RED BLOOD CELLS (BEAKER) (test 0 /100 WBC 0-0 yyiq=693) NEUTROPHILS RELATIVE PERCENT (BEAKER) (test 64 % ppvg=252) LYMPHOCYTES RELATIVE PERCENT (BEAKER) (test 24 % cuer=621) MONOCYTES RELATIVE PERCENT (BEAKER) (test 9 % hkum=195) EOSINOPHILS RELATIVE PERCENT (BEAKER) (test 2 % huqd=793) BASOPHILS RELATIVE PERCENT (BEAKER) (test 0 % qsxw=305) NEUTROPHILS ABSOLUTE COUNT (BEAKER) (test 3.33 K/ L 1.78-5.38 vuem=662) LYMPHOCYTES ABSOLUTE COUNT (BEAKER) (test 1.25 K/ L 1.32-3.57 ycav=423) MONOCYTES ABSOLUTE COUNT (BEAKER) (test 0.48 K/ L 0.30-0.82 myvk=989) EOSINOPHILS ABSOLUTE COUNT (BEAKER) (test 0.08 K/ L 0.04-0.54 fiss=902) BASOPHILS ABSOLUTE COUNT (BEAKER) (test 0.02 K/ L 0.01-0.08 ckrc=385) IMMATURE GRANULOCYTES-RELATIVE PERCENT (BEAKER) 0 % 0-1 (test hito=3142) POCT-GLUCOSE [id number] 21:23:00 Test Item Value Reference Range Comments POC-GLUCOSE METER (BEAKER) 173 mg/dL 70-[address] [facility] [address] [facility] (test bcza=5080) [place] [address] URINALYSIS W/ [id number] 17:46:00 Test Item Value Reference Range Comments COLOR (BEAKER) (test booa=624) Light Yellow CLARITY (BEAKER) (test aljr=752) Clear SPECIFIC GRAVITY UA (BEAKER) (test xoca=796) 1.009 1.001-1.035 PH UA (BEAKER) (test fozz=157) 5.0 5.0-8.0 PROTEIN UA (BEAKER) (test pgxv=787) Negative Negative GLUCOSE UA (BEAKER) (test rqam=665) >1000 mg/dL Negative KETONES UA (BEAKER) (test lvsf=927) Negative Negative BILIRUBIN UA (BEAKER) (test navr=693) Negative Negative BLOOD UA (BEAKER) (test jsgs=419) Negative Negative NITRITE UA (BEAKER) (test oewk=180) Negative Negative LEUKOCYTE ESTERASE UA (BEAKER) (test dxil=564) Negative Negative UROBILINOGEN UA (BEAKER) (test tdxo=975) 0.2 mg/dL 0.2-1.0 RBC UA (BEAKER) (test zxgy=237) 1 /HPF WBC UA (BEAKER) (test auls=011) < /HPF HYALINE CASTS (BEAKER) (test wqky=807) 2 /LPF SOURCE(BEAKER) (test myqu=8974) Urine, Voided B-TYPE NATRIURETIC FACTOR (BNP)2017-09-10 17:39:00 Test Item Value Reference Range Comments B-TYPE NATRIURETIC PEPTIDE (BEAKER) (test 246 pg/mL 0-100 mkpb=008) CREATINE KINASE (CK), TOTAL AND [id number] 17:37:00 Test Item Value Reference Range Comments CREATINE KINASE TOTAL (BEAKER) (test lwmp=220) 105 U/L 29-200 CREATINE KINASE-MB (BEAKER) (test zgmo=048) 2.6 ng/mL 0.0-6.6 CREATINE KINASE-MB INDEX (BEAKER) (test ffhz=761) 2.5 % CK-MB Reference Range:<6.7 Normal6.7-10.0 Borderline>10.0 AbnormalTROPONIN [id number] 17:37:00 Test Item Value Reference Range Comments TROPONIN I (BEAKER) (test jurw=286) 0.03 ng/mL 0.00-0.03 Troponin I (TnI) levels [...] acidosis, acute neurological disease, and persistent tachyarrhythmia.POCT-GLUCOSE [id number] 16:57:00 Test Item Value Reference Range Comments POC-GLUCOSE METER (BEAKER) 144 mg/dL 70-[address] [facility] [address] [facility] (test bxlz=3545) [facility] [address] CREATINE KINASE (CK), TOTAL AND [id number] 08:52:00 Test Item Value Reference Range Comments CREATINE KINASE TOTAL (BEAKER) (test ixla=584) 126 U/L 29-200 CREATINE KINASE-MB (BEAKER) (test xoat=888) 2.9 ng/mL 0.0-6.6 CREATINE KINASE-MB INDEX (BEAKER) (test bggx=058) 2.3 % CK-MB Reference Range:<6.7 Normal6.7-10.0 Borderline>10.0 AbnormalTROPONIN [id number] 08:52:00 Test Item Value Reference Range Comments TROPONIN I (BEAKER) (test dqru=131) 0.03 ng/mL 0.00-0.03 Troponin I (TnI) levels [...] failure, acidosis, acute neurological disease, and persistent tachyarrhythmia.[id number] 05:36:00 Test Item Value Reference Range Comments MAGNESIUM (BEAKER) (test 2.2 mg/dL 1.6-2.6 Specimen slightly hemolyzed eyit=341) BASIC METABOLIC [id number] 05:36:00 Test Item Value Reference Range Comments SODIUM (BEAKER) (test 140 meq/L 136-145 bfqn=382) POTASSIUM (BEAKER) (test 4.2 meq/L 3.5-5.1 Specimen slightly vbzd=446) hemolyzed CHLORIDE (BEAKER) (test 108 meq/L 98-107 soqw=387) CO2 (BEAKER) (test 21 meq/L 22-29 zcgu=935) BLOOD UREA NITROGEN 30 mg/dL 7-21 (BEAKER) (test pncr=061) CREATININE (BEAKER) (test 1.03 mg/dL 0.57-1.25 Specimen slightly mraa=948) hemolyzed GLUCOSE RANDOM (BEAKER) 122 mg/dL 70-105 (test zblx=218) CALCIUM (BEAKER) (test 9.3 mg/dL 8.4-10.2 pogi=435) EGFR (BEAKER) (test 70 mL/min/1.73 sq m ESTIMATED GFR IS NOT ihok=6350) ACCURATE CREATININE CLEARANCE IN PREDICTING GLOMERULAR FILTRATION RATE. ESTIMATED GFR IS NOT APPLICABLE FOR DIALYSIS PATIENTS. CBC W/PLT COUNT & AUTO [id number] 05:15:00 Test Item Value Reference Range Comments WHITE BLOOD CELL COUNT (BEAKER) (test bgli=064) 5.1 K/ L 3.5-10.5 RED BLOOD CELL COUNT (BEAKER) (test thid=520) 4.62 M/ L 4.63-6.08 HEMOGLOBIN (BEAKER) (test rrbv=578) 14.1 GM/DL 13.7-17.5 HEMATOCRIT (BEAKER) (test irsu=688) 43.3 % 40.1-51.0 MEAN CORPUSCULAR VOLUME (BEAKER) (test juzm=269) 93.7 fL 79.0-92.2 MEAN CORPUSCULAR HEMOGLOBIN (BEAKER) (test 30.5 pg 25.7-32.2 nopz=074) MEAN CORPUSCULAR HEMOGLOBIN CONC (BEAKER) (test 32.6 GM/DL 32.3-36.5 wiaj=469) RED CELL DISTRIBUTION WIDTH (BEAKER) (test 15.9 % 11.6-14.4 jdtn=873) PLATELET COUNT (BEAKER) (test ufug=919) 138 K/CU MM 150-450 MEAN PLATELET VOLUME (BEAKER) (test fhug=348) 10.6 fL 9.4-12.4 NUCLEATED RED BLOOD CELLS (BEAKER) (test 0 /100 WBC 0-0 fwet=812) NEUTROPHILS RELATIVE PERCENT (BEAKER) (test 59 % vqbc=283) LYMPHOCYTES RELATIVE PERCENT (BEAKER) (test 27 % igiq=289) MONOCYTES RELATIVE PERCENT (BEAKER) (test 11 % vfzy=160) EOSINOPHILS RELATIVE PERCENT (BEAKER) (test 1 % wnoz=947) BASOPHILS RELATIVE PERCENT (BEAKER) (test 1 % sehc=995) NEUTROPHILS ABSOLUTE COUNT (BEAKER) (test 3.02 K/ L 1.78-5.38 snya=741) LYMPHOCYTES ABSOLUTE COUNT (BEAKER) (test 1.39 K/ L 1.32-3.57 ygbq=103) MONOCYTES ABSOLUTE COUNT (BEAKER) (test 0.56 K/ L 0.30-0.82 wylh=158) EOSINOPHILS ABSOLUTE COUNT (BEAKER) (test 0.07 K/ L 0.04-0.54 doua=143) BASOPHILS ABSOLUTE COUNT (BEAKER) (test 0.03 K/ L 0.01-0.08 kjnm=708) IMMATURE GRANULOCYTES-RELATIVE PERCENT (BEAKER) 0 % 0-1 (test kqmd=5048) URINALYSIS W/ [id number] 02:45:00 Test Item Value Reference Range Comments COLOR (BEAKER) (test taes=375) Light Yellow CLARITY (BEAKER) (test mmao=437) Clear SPECIFIC GRAVITY UA (BEAKER) (test kkib=448) 1.023 1.001-1.035 PH UA (BEAKER) (test aksq=349) 5.0 5.0-8.0 PROTEIN UA (BEAKER) (test uibd=960) Negative Negative GLUCOSE UA (BEAKER) (test ztqu=042) >1000 mg/dL Negative KETONES UA (BEAKER) (test acur=593) Negative Negative BILIRUBIN UA (BEAKER) (test rrtd=893) Negative Negative BLOOD UA (BEAKER) (test amle=071) Negative Negative NITRITE UA (BEAKER) (test uuoq=446) Negative Negative LEUKOCYTE ESTERASE UA (BEAKER) (test sjsr=483) Negative Negative UROBILINOGEN UA (BEAKER) (test vjnj=838) 0.2 mg/dL 0.2-1.0 RBC UA (BEAKER) (test btym=959) < /HPF WBC UA (BEAKER) (test ehkd=670) < /HPF MUCUS (BEAKER) (test nmso=1777) Rare HYALINE CASTS (BEAKER) (test kawe=542) 2 /LPF AMORPHOUS CRYSTALS (BEAKER) (test vkxr=5444) Rare SOURCE(BEAKER) (test zaqm=7064) CREATINE KINASE (CK), TOTAL AND [id number] 02:03:00 Test Item Value Reference Range Comments CREATINE KINASE TOTAL (BEAKER) (test luwm=519) 115 U/L 29-200 CREATINE KINASE-MB (BEAKER) (test jrtr=791) 2.7 ng/mL 0.0-6.6 CREATINE KINASE-MB INDEX (BEAKER) (test djfi=237) 2.3 % CK-MB Reference Range:<6.7 Normal6.7-10.0 Borderline>10.0 AbnormalTROPONIN [id number] 02:03:00 Test Item Value Reference Range Comments TROPONIN I (BEAKER) (test iops=984) 0.03 ng/mL 0.00-0.03 Troponin I (TnI) levels [...] acute neurological disease, and persistent tachyarrhythmia.HEPATIC FUNCTION [id number] 01:56: 00 Test Item Value Reference Range Comments TOTAL PROTEIN (BEAKER) (test pbxy=489) 6.3 gm/dL 6.0-8.3 ALBUMIN (BEAKER) (test robr=9192) 3.9 g/dL 3.5-5.0 BILIRUBIN TOTAL (BEAKER) (test jjco=051) 0.3 mg/dL 0.2-1.2 BILIRUBIN DIRECT (BEAKER) (test miyq=189) 0.2 mg/dL 0.1-0.5 ALKALINE PHOSPHATASE (BEAKER) (test ojhh=315) 51 U/L 40-150 AST (SGOT) (BEAKER) (test veqp=720) 17 U/L 5-34 ALT (SGPT) (BEAKER) (test zgkl=973) 13 U/L 6-55 CREATINE KINASE (CK), TOTAL AND [id number] 22:41:00 Test Item Value Reference Range Comments CREATINE KINASE TOTAL (BEAKER) (test unbe=690) 132 U/L 29-200 CREATINE KINASE-MB (BEAKER) (test cbzk=963) 3.1 ng/mL 0.0-6.6 CREATINE KINASE-MB INDEX (BEAKER) (test gial=472) 2.3 % CK-MB Reference Range:<6.7 Normal6.7-10.0 Borderline>10.0 AbnormalTROPONIN [id number] 22:41:00 Test Item Value Reference Range Comments TROPONIN I (BEAKER) (test wzqu=946) 0.02 ng/mL 0.00-0.03 Troponin I (TnI) levels [...] NATRIURETIC PEPTIDE (BEAKER) (test 157 pg/mL 0-100 nfzq=596) RAD, CHEST, 1 VIEW, NON [id number] 22:37:00Reason for exam:-> PALPITATIONSShould this be performed [...] No focal pulmonary consolidation. Signed: [facility] Verified Date/Time: 09/09/2017 22:37:39 Reading Location: [address] Reading Room BASIC METABOLIC [id number] 22:36:00 Test Item Value Reference Range Comments SODIUM (BEAKER) (test 136 meq/L 136-145 ysyd=785) POTASSIUM (BEAKER) (test 4.2 meq/L 3.5-5.1 Specimen slightly urnp=609) hemolyzed CHLORIDE (BEAKER) (test 104 meq/L 98-107 klwg=574) CO2 (BEAKER) (test 22 meq/L 22-29 rgia=283) BLOOD UREA NITROGEN 32 mg/dL 7-21 (BEAKER) (test hnqc=495) CREATININE (BEAKER) (test 1.18 mg/dL 0.57-1.25 Specimen slightly sctz=123) hemolyzed GLUCOSE RANDOM (BEAKER) 150 mg/dL 70-105 (test xzcg=057) CALCIUM (BEAKER) (test 9.7 mg/dL 8.4-10.2 heuz=149) EGFR (BEAKER) (test mL/min/1.73 sq m INSUFFICIENT CLINICAL DATA lkfy=4070) TO CALCULATE ESTIMATED GFR. [id number] 22:34:00 Test Item Value Reference Range Comments MAGNESIUM (BEAKER) (test 2.4 mg/dL 1.6-2.6 Specimen slightly hemolyzed tuqo=818) CBC W/PLT COUNT & AUTO [id number] 22:10:00 Test Item Value Reference Range Comments WHITE BLOOD CELL COUNT (BEAKER) (test njgu=656) 7.1 K/ L 3.5-10.5 RED BLOOD CELL COUNT (BEAKER) (test ovhl=250) 4.40 M/ L 4.63-6.08 HEMOGLOBIN (BEAKER) (test xqym=200) 13.8 GM/DL 13.7-17.5 HEMATOCRIT (BEAKER) (test hqwf=557) 41.4 % 40.1-51.0 MEAN CORPUSCULAR VOLUME (BEAKER) (test ogqe=417) 94.1 fL 79.0-92.2 MEAN CORPUSCULAR HEMOGLOBIN (BEAKER) (test 31.4 pg 25.7-32.2 mmjn=018) MEAN CORPUSCULAR HEMOGLOBIN CONC (BEAKER) (test 33.3 GM/DL 32.3-36.5 pgrb=215) RED CELL DISTRIBUTION WIDTH (BEAKER) (test 15.9 % 11.6-14.4 rxvr=633) PLATELET COUNT (BEAKER) (test pobr=318) 159 K/CU MM 150-450 MEAN PLATELET VOLUME (BEAKER) (test gnza=315) 10.9 fL 9.4-12.4 NUCLEATED RED BLOOD CELLS (BEAKER) (test 0 /100 WBC 0-0 rmvt=596) NEUTROPHILS RELATIVE PERCENT (BEAKER) (test 69 % sywt=242) LYMPHOCYTES RELATIVE PERCENT (BEAKER) (test 22 % tshv=363) MONOCYTES RELATIVE PERCENT (BEAKER) (test 8 % xpvh=460) EOSINOPHILS RELATIVE PERCENT (BEAKER) (test 1 % prkf=122) BASOPHILS RELATIVE PERCENT (BEAKER) (test 0 % iswu=765) NEUTROPHILS ABSOLUTE COUNT (BEAKER) (test 4.89 K/ L 1.78-5.38 vjof=059) LYMPHOCYTES ABSOLUTE COUNT (BEAKER) (test 1.54 K/ L 1.32-3.57 wigb=867) MONOCYTES ABSOLUTE COUNT (BEAKER) (test 0.57 K/ L 0.30-0.82 ltfp=150) EOSINOPHILS ABSOLUTE COUNT (BEAKER) (test 0.07 K/ L 0.04-0.54 uzjb=828) BASOPHILS ABSOLUTE COUNT (BEAKER) (test 0.03 K/ L 0.01-0.08 lcsg=318) IMMATURE GRANULOCYTES-RELATIVE PERCENT (BEAKER) 0 % 0-1 (test xrun=0589)
--- OUTSIDE RECORDS SUMMARY | 2018-07-06 04:02 | XMS REPORT | Clinical Summary ---
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) Huy Vargas MD 09/09/2017 Orders Only General Internal Medicine after 07/05/2017 Social History Tobacco Use Types Packs/Day Years [...] Taken Blood Pressure 109/61 09/14/2017 10:22 AM UNIT CONTROLLER Pulse 56 09/14/2017 7:30 AM UNIT CONTROLLER Temperature 36.4 C (97.6 F) 09/14/2017 7:30 AM UNIT CONTROLLER Respiratory Rate 18 09/14/2017 7:30 AM UNIT CONTROLLER Oxygen Saturation 96% 09/14/2017 7:30 AM UNIT CONTROLLER Inhaled Oxygen Concentration - - Weight 90.7 kg (200 lb) 09/14/2017 7:30 AM UNIT CONTROLLER Height 182.9 cm (6') 09/09/2017 9:43 PM UNIT CONTROLLER Body Mass Index 27.12 09/14/2017 7:30 AM UNIT CONTROLLER Plan of Treatment Not on file Procedures Procedure Name Priority Date/Time Associated Comments Diagnosis RHYTHM STRIP - SCAN 10/18/2017 10:53 AM CDT CARDIAC CATH REPORT - 09/15/2017 3:40 SCAN PM UNIT CONTROLLER ARRYTHMIA IMPLANT 09/15/2017 1:40 REPORT - SCAN PM UNIT CONTROLLER RHYTHM STRIP - SCAN 09/15/2017 1:40 PM UNIT CONTROLLER VASCULAR DIAGRAM -SCAN 09/15/2017 1:40 PM UNIT CONTROLLER POCT-GLUCOSE METER Routine 09/14/2017 7:32 Results for this AM UNIT CONTROLLER procedure are in the results section. XR CHEST 1 VIEW Routine 09/14/2017 4:45 Results for this PORTABLE/BEDSIDE AM UNIT CONTROLLER procedure are in the results section. CBC W/PLT COUNT & AUTO Routine 09/14/2017 4:41 Results for this DIFFERENTIAL AM UNIT CONTROLLER procedure are in the results section. CBC W/PLT COUNT & AUTO Routine 09/14/2017 4:41 Results for this DIFFERENTIAL AM UNIT CONTROLLER procedure are in the results section. MAGNESIUM Routine 09/14/2017 4:41 Results for this AM UNIT CONTROLLER procedure are in the results section. BASIC METABOLIC PANEL Routine 09/14/2017 4:41 Results for this (7) AM UNIT CONTROLLER procedure are in the results section. POCT-GLUCOSE METER Routine 09/13/2017 11:33 Results for this PM UNIT CONTROLLER procedure are in the results section. POCT-GLUCOSE METER Routine 09/13/2017 6:29 Results for this PM UNIT CONTROLLER procedure are in the results section. POCT-GLUCOSE METER Routine 09/13/2017 4:34 Results for this PM UNIT CONTROLLER procedure are in the results section. ARRYTHMIA IMPLANT 09/13/2017 2:40 REPORT - SCAN PM UNIT CONTROLLER POCT-GLUCOSE METER Routine 09/13/2017 12:49 Results for this PM UNIT CONTROLLER procedure are in the results section. XR CHEST 1 VIEW Routine 09/13/2017 5:43 Results for this PORTABLE/BEDSIDE AM UNIT CONTROLLER procedure are in the results section. CBC W/PLT COUNT & AUTO Routine 09/13/2017 3:58 Results for this DIFFERENTIAL AM UNIT CONTROLLER procedure are in the results section. CBC W/PLT COUNT & AUTO Routine 09/13/2017 3:58 Results for this DIFFERENTIAL AM UNIT CONTROLLER procedure are in the results section. MAGNESIUM Routine 09/13/2017 3:58 Results for this AM UNIT CONTROLLER procedure are in the results section. BASIC METABOLIC PANEL Routine 09/13/2017 3:58 Results for this (7) AM UNIT CONTROLLER procedure are in the results section. POCT-GLUCOSE METER Routine 09/12/2017 7:39 Results for this PM UNIT CONTROLLER procedure are in the results section. L CATH & PCI 09/12/2017 2:42 chest pain PM UNIT CONTROLLER POCT-GLUCOSE METER Routine 09/12/2017 2:25 Results for this PM UNIT CONTROLLER procedure are in the results section. ECHOCARDIOGRAM REPORT - 09/12/2017 1:20 SCAN PM UNIT CONTROLLER POCT-GLUCOSE METER Routine 09/12/2017 8:01 Results for this AM UNIT CONTROLLER procedure are in the results section. CBC W/PLT COUNT & AUTO Routine 09/12/2017 4:51 Results for this DIFFERENTIAL AM UNIT CONTROLLER procedure are in the results section. CBC W/PLT COUNT & AUTO Routine 09/12/2017 4:51 Results for this DIFFERENTIAL AM UNIT CONTROLLER procedure are in the results section. MAGNESIUM Routine 09/12/2017 4:51 Results for this AM UNIT CONTROLLER procedure are in the results section. BASIC METABOLIC PANEL Routine 09/12/2017 4:51 Results for this (7) AM UNIT CONTROLLER procedure are in the results section. MAGNESIUM Routine 09/11/2017 11:04 Results for this PM UNIT CONTROLLER procedure are in the results section. BASIC METABOLIC PANEL Routine 09/11/2017 11:04 Results for this (7) PM UNIT CONTROLLER procedure are in the results section. POCT-GLUCOSE METER Routine 09/11/2017 9:46 Results for this PM UNIT CONTROLLER procedure are in the results section. POCT-GLUCOSE METER Routine 09/11/2017 5:08 Results for this PM UNIT CONTROLLER procedure are in the results section. POCT-GLUCOSE METER Routine 09/11/2017 11:52 Results for this AM UNIT CONTROLLER procedure are in the results section. POCT-GLUCOSE METER Routine 09/11/2017 7:54 Results for this AM UNIT CONTROLLER procedure are in the results section. CBC W/PLT COUNT & AUTO Routine 09/11/2017 3:35 Results for this DIFFERENTIAL AM UNIT CONTROLLER procedure are in the results section. APTT Routine 09/11/2017 3:35 Results for this AM UNIT CONTROLLER procedure are in the results section. PROTHROMBIN TIME/INR Routine 09/11/2017 3:35 Results for this AM UNIT CONTROLLER procedure are in the results section. CBC W/PLT COUNT & AUTO Routine 09/11/2017 3:35 Results for this DIFFERENTIAL AM UNIT CONTROLLER procedure are in the results section. MAGNESIUM Routine 09/11/2017 3:35 Results for this AM UNIT CONTROLLER procedure are in the results section. BASIC METABOLIC PANEL Routine 09/11/2017 3:35 Results for this (7) AM UNIT CONTROLLER procedure are in the results section. POCT-GLUCOSE METER Routine 09/10/2017 9:20 Results for this PM UNIT CONTROLLER procedure are in the results section. POCT-GLUCOSE METER Routine 09/10/2017 4:55 Results for this PM UNIT CONTROLLER procedure are in the results section. CREATINE KINASE (CK), STAT 09/10/2017 4:28 Results for this TOTAL AND MB PM UNIT CONTROLLER procedure are in the results section. TROPONIN I STAT 09/10/2017 4:28 Results for this PM UNIT CONTROLLER procedure are in the results section. B-TYPE NATRIURETIC Routine 09/10/2017 4:27 Results for this FACTOR (BNP) PM UNIT CONTROLLER procedure are in the results section. URINALYSIS W/ Routine 09/10/2017 4:27 Results for this MICROSCOPIC PM UNIT CONTROLLER procedure are in the results section. 2D ECHO W/ DOPPLER BRENDA 09/10/2017 2:49 Results for this (CW/PW/COLOR) PM UNIT CONTROLLER procedure are in the results section. CREATINE KINASE (CK), STAT 09/10/2017 8:15 Results for this TOTAL AND MB AM UNIT CONTROLLER procedure are in the results section. TROPONIN I STAT 09/10/2017 8:15 Results for this AM UNIT CONTROLLER procedure are in the results section. CBC W/PLT COUNT & AUTO Routine 09/10/2017 4:57 Results for this DIFFERENTIAL AM UNIT CONTROLLER procedure are in the results section. CBC W/PLT COUNT & AUTO Routine 09/10/2017 4:57 Results for this DIFFERENTIAL AM UNIT CONTROLLER procedure are in the results section. MAGNESIUM Routine 09/10/2017 4:57 Results for this AM UNIT CONTROLLER procedure are in the results section. BASIC METABOLIC PANEL Routine 09/10/2017 4:57 Results for this (7) AM UNIT CONTROLLER procedure are in the results section. URINALYSIS W/ Routine 09/10/2017 1:11 Results for this MICROSCOPIC AM UNIT CONTROLLER procedure are in the results section. CREATINE KINASE (CK), STAT 09/10/2017 1:11 Results for this TOTAL AND MB AM UNIT CONTROLLER procedure are in the results section. TROPONIN I STAT 09/10/2017 1:11 Results for this AM UNIT CONTROLLER procedure are in the results section. HEPATIC FUNCTION PANEL Routine 09/10/2017 1:11 Results for this AM UNIT CONTROLLER procedure are in the results section. ED ECG INTERPRETATION Routine 09/09/2017 11:22 Results for this PM UNIT CONTROLLER procedure are in the results section. ECG 12-LEAD Routine 09/09/2017 10:32 PM UNIT CONTROLLER Procedure Note - Interface, External Ris In - 09/09/2017 10:45 PM UNIT CONTROLLER Ventricular Rate 59 BPM Atrial Rate 59 BPM P-R Interval 174 ms QRS Duration 160 ms Q-T Interval 504 ms QTC Calculation(Bazett) 498 ms P Chapin 11 degrees R Chapin -20 degrees T Chapin -3 degrees Sinus bradycardia Right bundle branch block Left ventricular hypertrophy with QRS widening Inferior infarct , age undetermined Anterolateral infarct , age undetermined Abnormal ECG No previous ECGs available ECG 12-LEAD STAT 09/09/2017 10:32 PM UNIT CONTROLLER XR CHEST 1 VIEW STAT 09/09/2017 10:03 PM UNIT CONTROLLER Results for this PORTABLE/BEDSIDE procedure are in the results section. CBC W/PLT COUNT & AUTO STAT 09/09/2017 9:47 PM UNIT CONTROLLER Results for this DIFFERENTIAL procedure are in the results section. CREATINE KINASE (CK), TOTAL STAT 09/09/2017 9:47 PM UNIT CONTROLLER Results for this AND MB procedure are in the results section. TROPONIN I STAT 09/09/2017 9:47 PM UNIT CONTROLLER MAGNESIUM STAT 09/09/2017 9:47 PM UNIT CONTROLLER CBC W/PLT COUNT & AUTO STAT 09/09/2017 9:47 PM UNIT CONTROLLER Results for this DIFFERENTIAL procedure are in the results section. B-TYPE NATRIURETIC FACTOR STAT 09/09/2017 9:47 PM UNIT CONTROLLER Results for this (BNP) procedure are in the results section. BASIC METABOLIC PANEL (7) STAT 09/09/2017 9:47 PM UNIT CONTROLLER ECG 12-LEAD Routine 09/09/2017 9:18 PM UNIT CONTROLLER after 07/05/2017 Results RHYTHM STRIP - SCAN (10/18/2017 10:53 AM CDT)Only the most recent of2 resultswithin the time period is included. Narrative Performed At CARDIAC CATH REPORT - SCAN (09/15/2017 3:40 PM UNIT CONTROLLER) Narrative Performed At ARRYTHMIA IMPLANT REPORT - SCAN (09/15/2017 1:40 PM UNIT CONTROLLER)Only the most recent of2 resultswithin the time period is included. Narrative Performed At VASCULAR DIAGRAM -SCAN (09/15/2017 1:40 PM UNIT CONTROLLER) Narrative Performed At POC-Glucose meter (09/14/2017 7:32 AM UNIT CONTROLLER)Only the most recent of14 resultswithin the time period is included. POC-Glucose Meter 214 (H)Comment: TESTED AT 70 - 110 mg/dL [facility] [address] [facility] [address] Specimen Blood Performing Organization Address City/State/Zipcode Phone Number [address] [phone] CENTER XR chest 1 view portable / bedside (09/14/2017 4:45 AM UNIT CONTROLLER)Only the most recent of3 resultswithin the time period is included. Narrative Performed At FINAL REPORT [facility] Portable chest CLINICAL HISTORY: Short of breath Comparison:09/13/2017. FINDINGS:The cardiac silhouette is enlarged.The patient is status post sternotomy. A pacer device is seen. There are mild interstitial markings but no definite focal opacity, pleural effusion or pneumothorax. Degenerative changes are noted. IMPRESSION: No significant change. Signed: Gonzalo Rose MD Report Verified Date/Time:09/14/2017 09:52:44 Reading Location: [facility] Diagnostic Imaging Reading Room - [place] [address] Procedure Note Interface, External Ris In - 09/14/2017 9:54 AM UNIT CONTROLLER FINAL REPORT Portable chest CLINICAL HISTORY: Short of breath Comparison: 09/13/2017. FINDINGS: The cardiac silhouette is enlarged. The patient is status post sternotomy. A pacer device is seen. There are mild interstitial markings but no definite focal opacity, pleural effusion or pneumothorax. Degenerative changes are noted. IMPRESSION: No significant change. Signed: Gonzalo Rose MD Report Verified Date/Time: 09/14/2017 09:52:44 Reading Location: [facility] Diagnostic Imaging Reading Room - [place] [address] Performing Organization Address City/State/Zipcode Phone Number GE RIS CBC with platelet count + automated diff (09/14/2017 4:41 AM UNIT CONTROLLER)Only the most recent of6 resultswithin the time period is included. WBC 4.7 3.5 - 10.5 K/L [facility] RBC 4.57 (L) 4.63 - 6.08 M/L [facility] Hemoglobin 14.2 13.7 - 17.5 GM/DL [facility] Hematocrit 42.3 40.1 - 51.0 % [facility] MCV 92.6 (H) 79.0 - 92.2 fL [facility] MCH 31.1 25.7 - 32.2 pg [facility] MCHC 33.6 32.3 - 36.5 GM/DL [facility] RDW 15.3 (H) 11.6 - 14.4 % [facility] Platelets 126 (L) 150 - 450 K/CU MM [facility] MPV 10.5 9.4 - 12.4 fL [facility] nRBC 0 0 - 0 /100 WBC [facility] % Neutros 61 % [facility] % Lymphs 26 % [facility] % Monos 10 % [facility] % Eos 2 % [facility] % Baso 1 % [facility] # Neutros 2.83 1.78 - 5.38 K/L [facility] # Lymphs 1.24 (L) 1.32 - 3.57 K/L [facility] # Monos 0.48 0.30 - 0.82 K/L [facility] # Eos 0.10 0.04 - 0.54 K/L [facility] # Baso 0.03 0.01 - 0.08 K/L [facility] Immature Granulocytes-Relative 0 0 - 1 % [facility] Specimen Blood Performing Organization Address City/State/Zipcode Phone Number [address] [address] CENTER Magnesium (09/14/2017 4:41 AM UNIT CONTROLLER)Only the most recent of7 resultswithin the time period is included. Magnesium 1.9 1.6 - 2.6 mg/dL [facility] Specimen Blood Performing Organization Address City/[facility]/Zipcode Phone Number [address] [address] [phone] CENTER Basic metabolic panel (09/14/2017 4:41 AM UNIT CONTROLLER)Only the most recent of7 resultswithin the time period is included. Sodium 137 136 - 145 meq/L [facility] Potassium 4.3 3.5 - 5.1 meq/L [facility] Chloride 101 98 - 107 meq/L [facility] CO2 25 22 - 29 meq/L [facility] BUN 31 (H) 7 - 21 mg/dL [facility] Creatinine 1.13 0.57 - 1.25 mg/dL [facility] Glucose 180 (H) 70 - 105 mg/dL [facility] Calcium 9.9 8.4 - 10.2 mg/dL [facility] EGFR 63Comment: ESTIMATED GFR IS mL/min/1.73 sq m [facility] NOT ACCURATE CREATININE [facility] CLEARANCE IN PREDICTING GLOMERULAR FILTRATION RATE. ESTIMATED GFR IS NOT APPLICABLE FOR DIALYSIS PATIENTS. Specimen Blood Performing Organization Address City/State/Zipcode Phone Number [address] [address] [phone] CENTER ECHOCARDIOGRAM REPORT - SCAN (09/12/2017 1:20 PM UNIT CONTROLLER) Narrative Performed At aPTT (09/11/2017 3:35 AM UNIT CONTROLLER) PTT 26.5 22.5 - 36.0 seconds [facility] Specimen Blood - Arm, Right Performing Organization Address City/[facility] Phone Number [address] [address] [phone] CENTER Prothrombin time/INR (09/11/2017 3:35 AM UNIT CONTROLLER) Protime 14.4 11.7 - 14.7 seconds [facility] INR 1.1 <=5.9 [facility] Specimen Blood - Arm, Right Narrative Performed At [facility] RECOMMENDED COUMADIN/WARFARIN INR THERAPY RANGES STANDARD DOSE: 2.0 - 3.0 Includes: PROPHYLAXIS for venous thrombosis, systemic embolization; TREATMENT for venous thrombosis and/or pulmonary embolus. HIGH RISK: Target INR is 2.5-3.5 for patients with mechanical heart valves. Performing Organization Address City/[facility] Phone Number [address] [address] CENTER Troponin I (09/10/2017 4:28 PM UNIT CONTROLLER)Only the most recent of4 resultswithin the time period is included. Troponin I 0.03 0.00 - 0.03 ng/mL [facility] Specimen Blood Narrative Performed At [facility] Troponin I (TnI) levels must be interpreted [...] disease, and persistent tachyarrhythmia. Performing Organization Address City/[facility] Phone Number [address] [address] [place] Creatine Kinase (CK), Total and MB (09/10/2017 4:28 PM UNIT CONTROLLER)Only the most recent of4 resultswithin the time period is included. Total CK 105 29 - 200 U/L [facility] CK-MB 2.6 0.0 - 6.6 ng/mL [facility] MB Relative Index 2.5 % [facility] Specimen Blood Narrative Performed At CK-MB Reference Range: [facility] <6.7Normal 6.7-10.0Borderline >10.0 Abnormal Performing Organization Address City/[facility] Services[facility] Phone Number [address] [address] [place] Urinalysis w/ Microscopic (09/10/2017 4:27 PM UNIT CONTROLLER)Only the most recent of2 resultswithin the time period is included. Color, UA Light Yellow [facility] Clarity, UA Clear [facility] Specific [place], UA 1.009 1.001 - 1.035 [facility] pH, UA 5.0 5.0 - 8.0 [facility] Protein, UA Negative Negative [facility] Glucose, UA >1000 mg/dL (A) Negative [facility] Ketones, UA Negative Negative [facility] Bilirubin, UA Negative Negative [facility] Blood, UA Negative Negative [facility] Nitrite, UA Negative Negative [facility] Leukocytes, UA Negative Negative [facility] Urobilinogen, UA 0.2 0.2 - 1.0 mg/dL [facility] RBC, UA 1 /HPF [facility] WBC, UA <1 /HPF [facility] Hyaline Casts, UA 2 /LPF [facility] Specimen Source Urine, Voided [facility] Specimen Urine - Urine, Voided Performing Organization Address City/[facility] [place] [address] CENTER B-type Natriuretic Factor (BNP) (09/10/2017 4:27 PM UNIT CONTROLLER)Only the most recent of2 resultswithin the time period is included. BNP 246 (H) 0 - 100 pg/mL [facility] Specimen Blood Performing Organization Address City/[facility]/Zipcode Phone Number [address] [address] CENTER Transthoracic 2D echo w/ doppler (cw/pw/color) (09/10/2017 2:49 PM UNIT CONTROLLER) Ejection Fraction [facility] RecordSledESSON CPACS Narrative Performed At Transthoracic Echocardiography Report (TTE) [facility] GeoLearningCKESSON CPACS Demographics Patient Name TONY VERDUZCO Date of Study09/10/2017 [id number] Gender Male Visit Number [id number] Race Unknown [id number] Number Date of Birth1940 Referring PhysicianAnjana Schaffer [...] External Ris In - 09/12/2017 12:56 PM UNIT CONTROLLER Transthoracic Echocardiography Report (TTE) Demographics Patient Name TONY VERDUZCO Date of Study 09/10/2017 Gender Male Visit Number [id number] Race Unknown Room Number 7303 Number Date of 1940 Referring Physician Anjana Schaffer Age 77 year(s) 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 Jayleen Interpreting Maik Ba Physician Procedure Type [...] LVOT CI: 2.61 l/min/m^2 Performing Organization Address City/[facility] Phone Number [facility] MKCKESSON CPA Hepatic function panel (09/10/2017 1:11 AM UNIT CONTROLLER) Protein, Total 6.3 6.0 - 8.3 gm/dL [facility] Albumin 3.9 3.5 - 5.0 g/dL [facility] Total Bilirubin 0.3 0.2 - 1.2 mg/dL [facility] Bilirubin, Direct 0.2 0.1 - 0.5 mg/dL [facility] Alkaline Phosphatase 51 40 - 150 U/L [facility] AST 17 5 - 34 U/L [facility] ALT 13 6 - 55 U/L [facility] Specimen Blood Performing Organization Address City/[facility]code Phone Number [facility] [address] [place] [address] CENTER ED ECG Interpretation (09/09/2017 11:22 PM UNIT CONTROLLER) Narrative Performed At Anjana Schaffer MD 09/09/2017 [...] elevation in lead(s) aVR. T waves abnormal. Chapin is right. Q-waves are present in lead(s) I, II, III and aVF. Clinical Impression: abnormal ECGECG reviewed and does not meet STEMI criteria. ECG 12 lead (09/09/2017 10:32 PM UNIT CONTROLLER)Only the most recent of2 resultswithin the time period is included. Narrative Performed At Ventricular Rate 59 BPM [facility] MUSE Atrial Rate 59 BPM P-R Interval 174 ms QRS Duration 160 ms Q-T Interval 504 ms QTC Calculation(Bazett) 498 ms P Chapin 11 degrees R Chapin -20 degrees T Chapin -3 degrees Sinus bradycardia Right bundle branch block Left ventricular hypertrophy with QRS widening Inferior infarct , age undetermined Anterolateral infarct , age undetermined Abnormal ECG No previous ECGs available Confirmed by MD DELAROSA JOSEPH P ([id number]) on 09/11/2017 7:34:21 AM Procedure Note Interface, External Ris In - 09/11/2017 7:34 AM UNIT CONTROLLER Ventricular Rate 59 BPM Atrial Rate 59 BPM P-R Interval 174 ms QRS Duration 160 ms Q-T Interval 504 ms QTC Calculation(Bazett) 498 ms P Chapin 11 degrees R Chapin -20 degrees T Chapin -3 degrees Sinus bradycardia Right bundle branch block Left ventricular hypertrophy with QRS widening Inferior infarct , age undetermined Anterolateral infarct , age undetermined Abnormal ECG No previous ECGs available Confirmed by MD DELAROSA JOSEPH P ([id number]) on 09/11/2017 7:34:21 AM Performing Organization Address City/State/Zipcode Phone Number GE MUSE after 07/05/2017 Insurance Payer Benefit Plan / Group Subscriber ID Type Phone Address MEDICARE MEDICARE A B xxxxxxxxxx Medicare MCR GENERIC MEDICARE xxxxxxxxxx Medigap SUPPLEMENT/INDIVIDUAL SUPPLEMENT Advance Directives For more information, please contact:[address] [phone] Code Status Date Activated Date Inactivated Comments Full Code 09/10/2017 3:06 PM 09/14/2017 2:13 PM This code status was determined by: Patient Full Code 09/10/2017 12:50 AM 09/10/2017 3:06 PM This code status was determined by: Patient
--- OUTSIDE RECORDS SUMMARY | 2018-07-06 04:02 | XMS REPORT ---
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
[2018-07-06] MEDS ORDERED: ONDANSETRON 4 MG/2 ML VIAL ONE (04:35)
[2018-07-06] MEDS ORDERED: MORPHINE 4 MG/ML SYR ONE (04:35)
[2018-07-06] MEDS ORDERED: NA CHLORIDE 0.9% 1,000 ML ONE (04:35)
[2018-07-06 05:02] LABS: Absolute Lymphocytes (CBC) 0.7 K/uL (0.7-4.9); Absolute Monocytes 0.5 K/uL (0.1-1.3); Absolute Neutrophil 5.4 K/uL (1.8-8.0); Basophils % 0.7 % (0-1.3); Eosinophils % 2.2 % (0-4.4); Hematocrit 40.4 % (39.6-49.0); Lymphocytes % 10.5 % (15.3-44.8); MPV 8.6 fL (7.6-11.3); RBC Red Blood Cell Count 4.42 M/uL (4.33-5.43)
[2018-07-06 05:10] LABS: Protime INR 1.22
[2018-07-06 05:31] LABS: Albumin 2.9 g/dL (3.4-5.0); Bilirubin Direct 0.1 mg/dL (0-0.2); Bilirubin Total 0.5 mg/dL (0.2-1.0); Magnesium 2.3 mg/dL (1.8-2.4); Potassium 4.7 mmol/L (3.5-5.1); Protein, Total 6.5 g/dL (6.4-8.2); Troponin (Emerg Dept Use Only) 0.05 ng/mL (0.0-0.045)
--- NOTE | 2018-07-06 05:55 | EDPHYS ---
Physician Documentation [facility] Name: Cuco Escobar Age: 78 yrs Sex: Male : 1940 Arrival Date: 07/06/2018 Time: 04:04 Bed 14 Private MD: TRISTIAN Physician Surya Mims HPI: 07/06 04:18 This 78 yrs old Male presents to ER via Unassigned with complaints of cough natacha and abdominal pain. 04:18 The patient has shortness of breath at rest. Onset: The symptoms/episode began/occurred natacha 2 day(s) ago. The patient's shortness of breath is aggravated by coughing, is alleviated by rest, sitting up, application of supplemental oxygen. The patient presents with abdominal pain in the right upper quadrant, right lower quadrant, abdominal distention. The patient or guardian reports cough, described as mild, described as moderate, difficulty breathing. Modifying factors: The symptoms are alleviated by remaining still, the symptoms are aggravated by activity, lying flat. Historical: - Allergies: 04:22 No Known Allergies; jd3 - Home Meds: 04:22 allopurinol 300 mg Oral tab 1 tab once daily [Active]; amiodarone 200 mg Oral tab 1 tab jd3 2 times per day [Active]; aspirin 81 mg Oral chew 1 tab once daily [Active]; atorvastatin 20 mg Oral tab 1 tab once daily [Active]; balsalazide 750 mg Oral cap 2 caps BID [Active]; Colestid 1 gram Oral tab [Active]; CoQ-10 Oral [Active]; furosemide 40 mg Oral tab 1 tab once daily [Active]; glimepiride 2 mg Oral tab 1 tab once daily [Active]; HMB [Active]; Januvia 100 mg Oral tab 1 tab once daily [Active]; Nitrostat 0.4 mg SL subl 1 tab every 5 minutes [Active]; lisinopril 2.5 mg Oral tab 1 tab once daily [Active]; Vitamin Oral tab 1 tab once daily [Active]; spironolactone 25 mg Oral tab 1 tab once daily [Active]; - PMHx: 04:22 CHF; Heart Murmur; Crohn's; Hyperlipidemia; [place]; Diabetes - NIDDM; Gout; Hypertension; jd3 Atrial Fib; - PSHx: : Cholecystectomy; Bowel resection; Heart stents; Quintuple (5) Bypass; rectal sx; jd3 - Immunization history:: Adult Immunizations up to date, Pneumococcal vaccine is up to date, Flu vaccine is up to date. - Social history:: Smoking status: Patient/guardian denies using tobacco. - Family history:: not pertinent. - Ebola Screening: : Patient negative for fever greater than or equal to 101.5 degrees Fahrenheit, and additional compatible Ebola Virus Disease symptoms. ROS: 04:18 Constitutional: Negative for fever, chills, and weight loss, Eyes: Negative for injury, natacha pain, redness, and discharge, ENT: Negative for injury, pain, and discharge, Neck: Negative for injury, pain, and swelling, Cardiovascular: Negative for chest pain, palpitations, and edema, Abdomen/GI: Negative for abdominal pain, nausea, vomiting, diarrhea, and constipation, Back: Negative for injury and pain, : Negative for injury, bleeding, discharge, and swelling, MS/Extremity: Negative for injury and deformity, Skin: Negative for injury, rash, and discoloration, Neuro: Negative for headache, weakness, numbness, tingling, and seizure. 04:18 Respiratory: Positive for cough, wheezing, inspiratory, expiratory, of the left lower lobe, right lower lobe, left posterior lower lobe and right posterior lower lobe. Exam: 04:18 Constitutional: This is a well developed, well nourished patient who is awake, alert, natacha and in no acute distress. Head/Face: Normocephalic, atraumatic. Eyes: Pupils equal round and reactive to light, extra-ocular motions intact. Lids and lashes normal. Conjunctiva and sclera are non-icteric and not injected. Cornea within normal limits. Periorbital areas with no swelling, redness, or edema. ENT: Nares patent. No nasal discharge, no septal abnormalities noted. Tympanic membranes are normal and external auditory canals are clear. Oropharynx with no redness, swelling, or masses, exudates, or evidence of obstruction, uvula midline. Mucous membranes moist. Neck: Trachea midline, no thyromegaly or masses palpated, and no cervical lymphadenopathy. Supple, full range of motion without nuchal rigidity, or vertebral point tenderness. No Meningismus. Chest/axilla: Normal chest wall appearance and motion. Nontender with no deformity. No lesions are appreciated. Cardiovascular: Regular rate and rhythm with a normal S1 and S2. No gallops, murmurs, or rubs. Normal PMI, no JVD. No pulse deficits. Abdomen/GI: Soft, non-tender, with normal bowel sounds. No distension or tympany. No guarding or rebound. No evidence of tenderness throughout. Back: No spinal tenderness. No costovertebral tenderness. Full range of motion. Male : Normal genitalia with no discharge or lesions. Skin: Warm, dry with normal turgor. Normal color with no rashes, no lesions, and no evidence of cellulitis. MS/ Extremity: Pulses equal, no cyanosis. Neurovascular intact. Full, normal range of motion. Neuro: Awake and alert, GCS 15, oriented to person, place, time, and situation. Cranial nerves II-XII grossly intact. Motor strength 5/5 in all extremities. Sensory grossly intact. Cerebellar exam normal. Normal gait. Psych: Awake, alert, with orientation to person, place and time. Behavior, mood, and affect are within normal limits. 04:18 Respiratory: the patient does not display signs of respiratory distress, Respirations: labored breathing, that is mild, Breath sounds: rales, that are mild, are located in both bases, bronchial sounds, rhonchi. 04:18 Musculoskeletal/extremity: DVT Exam: no pain, no swelling, no tenderness, negative Homans' sign noted on exam, no appreciated bluish discoloration, no erythema, no increased warmth. Vital Signs: 04:22 BP 96 / 67; Pulse 68; Resp 22 S; Temp 97.4(O); Pulse Ox 95% on R/A; Weight 90.72 kg jd3 (R); Height 6 ft. 0 in. (182.88 cm) (R); Pain 10/10; 05:00 BP 118 / 62; Pulse 64; Resp 24; Pulse Ox 97% 3 lpm ; rr5 06:00 BP 119 / 73; Pulse 62; Resp 21; Pulse Ox 96% on 3 lpm NC; rr5 07:00 BP 112 / 60; Pulse 64; Resp 22; Pulse Ox 96% on 3 lpm NC; rr5 07:58 BP 106 / 65; Pulse 74; Resp 22; Pulse Ox 100% on 3 lpm NC; ph 09:00 BP 111 / 64; Pulse 67; Resp 20; Pulse Ox 98% on 3 lpm NC; ph 11:25 BP 105 / 62; Pulse 75; Resp 20; Pulse Ox 95% on 2 lpm NC; aj1 12:28 BP 107 / 75; Pulse 78; Resp 20; Pulse Ox 97% on 2 lpm NC; aj1 04:22 Body Mass Index 27.12 (90.72 kg, 182.88 cm) jd3 MDM: 04:08 Patient medically screened. [facility] 04:23 Data reviewed: vital signs, nurses notes, lab test result(s), EKG, radiologic studies, [facility] CT scan, plain films. 07/06 04:17 Order name: Basic Metabolic Panel [facility] 07/06 04:17 Order name: CBC with Diff [facility] 07/06 04:17 Order name: LFT's; Complete Time: 05:46 [facility] 07/06 04:17 Order name: Magnesium; Complete Time: 05:46 [facility] 07/06 04:17 Order name: NT PRO-BNP; Complete Time: 05:46 [facility] 07/06 04:17 Order name: PT-INR; Complete Time: 05:46 [facility] 07/06 04:17 Order name: Troponin (emerg Dept Use Only); Complete Time: 05:46 [facility] 07/06 04:17 Order name: Blood Culture Adult (2) [facility] 07/06 04:17 Order name: Lipase; Complete Time: 05:46 [facility] 07/06 04:17 Order name: Urine Culture [facility] 07/06 04:18 Order name: Basic Metabolic Panel; Complete Time: 05:46 [facility] 07/06 04:18 Order name: CBC with Automated Diff; Complete Time: 05:46 [facility] 07/06 04:22 Order name: Flu; Complete Time: 07:27 [facility] 07/06 05:57 Order name: Urine Dipstick--Ancillary (enter results); Complete Time: 07:27 ar5 07/06 04:17 Order name: XRAY Chest (1 view) [facility] 07/06 04:17 Order name: EKG; Complete Time: 04:18 [facility] 07/06 04:17 Order name: Cardiac monitoring; Complete Time: 04:34 [facility] 07/06 04:17 Order name: EKG - Nurse/Tech; Complete Time: 04:34 [facility] 07/06 04:17 Order name: IV Saline Lock; Complete Time: 04:34 [facility] 07/06 04:17 Order name: Labs collected and sent; Complete Time: 04:34 [facility] 07/06 04:17 Order name: O2 Per Protocol; Complete Time: 04:34 [facility] 07/06 04:17 Order name: O2 Sat Monitoring; Complete Time: 04:34 [facility] 07/06 04:17 Order name: CT Chest Abdomen Pelvis W/O Contrast [facility] 07/06 04:17 Order name: Urine Dipstick-Ancillary (obtain specimen); Complete Time: 05:34 [facility] Administered Medications: Discontinued: NS 0.9% 1000 ml IV at 125 ml/hr continuous 05:15 Drug: NS 0.9% 1000 ml Route: IV; Rate: 125 ml/hr; Site: right forearm; rr5 07:15 Follow up: Response: No adverse reaction; IV Status: Order to discontinue infusion rr5 05:15 Drug: Zofran 4 mg Route: IVP; Site: right forearm; rr5 07:20 Follow up: Response: No adverse reaction rr5 05:17 Drug: morphine 2 mg Route: IVP; Site: right forearm; rr5 07:20 Follow up: Response: No adverse reaction rr5 05:49 CANCELLED (Duplicate Order): Lasix 20 mg IVP once [facility] 06:30 Drug: Lasix 40 mg Route: IVP; Site: right forearm; rr5 07:19 Follow up: Response: No adverse reaction rr5 06:30 Drug: Aspirin 81 mg Route: PO; rr5 07:20 Follow up: Response: No adverse reaction rr5 07:00 Drug: Zosyn 3.375 grams Route: IVPB; Infused Over: 60 mins; Site: right forearm; rr5 Disposition: 07/06/18 05:54 Hospitalization ordered by Georgette Carrasco for Inpatient Admission. Preliminary diagnosis are Unspecified combined systolic (congestive) and diastolic (congestive) heart failure, Cough, Type 2 diabetes mellitus, Cardiomegaly, Abdominal tenderness - wall. - Bed requested for Telemetry/MedSurg (Inpatient). - Status is Inpatient Admission. aj1 - Condition is Fair. - Problem is new. - Symptoms have improved. UTI on Admission? No Signatures: Dispatcher [employer] EDMS Emilia Lemus Angela, RN RN aj1 Surya Mims MD MD cha Therrien, Shelly, DYNAMOMETER TESTER-C DYNAMOMETER TESTER-Marily Gallagherne, RN RN df August Crespo RN RN jd3 Dominick Rodriguez RN RN rr5 Corrections: (The following items were deleted from the chart) 05:49 05:48 Lasix 20 mg IVP once ordered. natacha natacha 07:56 05:54 Hospitalization Ordered by Georgette Carrasco MD for Inpatient Admission. Preliminary bd diagnosis is Unspecified combined systolic (congestive) and diastolic (congestive) heart failure; Cough; Type 2 diabetes mellitus; Cardiomegaly; Abdominal tenderness - wall. Bed requested for Telemetry/MedSurg (Inpatient). Status is Inpatient Admission. Condition is Fair. Problem is new. Symptoms have improved. UTI on Admission? No. natacha 10:03 07:56 07/06/2018 05:54 Hospitalization Ordered by Georgette Carrasco MD for Inpatient df Admission. Preliminary diagnosis is Unspecified combined systolic (congestive) and diastolic (congestive) heart failure; Cough; Type 2 diabetes mellitus; Cardiomegaly; Abdominal tenderness - wall. Bed requested for Telemetry/MedSurg (Inpatient). Status is Inpatient Admission. Condition is Fair. Problem is new. Symptoms have improved. UTI on Admission? No. bd 12:47 10:03 07/06/2018 05:54 Hospitalization Ordered by Georgette Cararsco MD for Inpatient aj1 Admission. Preliminary diagnosis is Unspecified combined systolic (congestive) and diastolic (congestive) heart failure; Cough; Type 2 diabetes mellitus; Cardiomegaly; Abdominal tenderness - wall. Bed requested for Telemetry/MedSurg (Inpatient). Status is Inpatient Admission. Condition is Fair. Problem is new. Symptoms have improved. UTI on Admission? No. df
--- NOTE | 2018-07-06 05:55 | ER ---
Nurse's Notes [facility] Name: Cuco Escobar Age: 78 yrs Sex: Male : 1940 Arrival Date: 07/06/2018 Time: 04:04 Bed 14 Private MD: Diagnosis: Unspecified combined systolic (congestive) and diastolic (congestive) heart failure;Cough;Type 2 diabetes mellitus;Cardiomegaly;Abdominal tenderness-wall Presentation: 07/06 04:17 Presenting complaint: states: "He released from here recently with pneumonia. 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 Transition of care: patient was not received from another setting of care. Onset of symptoms was July 06, 2018. Risk Assessment: Do you want to hurt yourself or someone else? Patient reports no desire to harm self or others. Initial Sepsis Screen: Does the patient meet any 2 criteria? No. Patient's initial sepsis screen is negative. Does the patient have a suspected source of infection? No. Patient's initial sepsis screen is negative. Care prior to arrival: None. 04:17 Method Of Arrival: Wheelchair jd3 04:17 Acuity: SONY 3 jd3 Historical: - Allergies: 04:22 No Known Allergies; jd3 - Home Meds: 04:22 allopurinol 300 mg Oral tab 1 tab once daily [Active]; amiodarone 200 mg Oral tab 1 tab jd3 2 times per day [Active]; aspirin 81 mg Oral chew 1 tab once daily [Active]; atorvastatin 20 mg Oral tab 1 tab once daily [Active]; balsalazide 750 mg Oral cap 2 caps BID [Active]; Colestid 1 gram Oral tab [Active]; CoQ-10 Oral [Active]; furosemide 40 mg Oral tab 1 tab once daily [Active]; glimepiride 2 mg Oral tab 1 tab once daily [Active]; HMB [Active]; Januvia 100 mg Oral tab 1 tab once daily [Active]; Nitrostat 0.4 mg SL subl 1 tab every 5 minutes [Active]; lisinopril 2.5 mg Oral tab 1 tab once daily [Active]; Vitamin Oral tab 1 tab once daily [Active]; spironolactone 25 mg Oral tab 1 tab once daily [Active]; - PMHx: 04:22 CHF; Heart Murmur; Crohn's; Hyperlipidemia; [place]; Diabetes - NIDDM; Gout; Hypertension; jd3 Atrial Fib; - PSHx: 04:22 Cholecystectomy; Bowel resection; Heart stents; Quintuple (5) Bypass; rectal sx; jd3 - Immunization history:: Adult Immunizations up to date, Pneumococcal vaccine is up to date, Flu vaccine is up to date. - Social history:: Smoking status: Patient/guardian denies using tobacco. - Family history:: not pertinent. - Ebola Screening: : Patient negative for fever greater than or equal to 101.5 degrees Fahrenheit, and additional compatible Ebola Virus Disease symptoms. Screenin:23 Abuse screen: Denies threats or abuse. Nutritional screening: No deficits noted. jd3 Tuberculosis screening: No symptoms or risk factors identified. Fall Risk Ambulatory Aid- Crutches/Cane/Walker (15 pts). Gait- Weak (10 pts.). Mental Status- Oriented to own ability (0 pts). Total Gutiérrez Fall Scale indicates Low Risk Score (25-44 pts). Fall prevention measures have been instituted. Side Rails Up X 2 Placed close to Nursing Station Frequent Obs/Assesments occuring Family Present and informed to notify staff if they need to leave bedside. Assessment: 04:20 General: Appears in no apparent distress. uncomfortable, Behavior is calm, cooperative, rr5 appropriate for age. Neuro: Neuro: Level of Consciousness is awake, alert, obeys commands, Oriented to person, place, time. 04:20 Pain:. Cardiovascular: Capillary refill < 3 seconds Patient's skin is warm and dry. rr5 pacemaker and defib at left chest wall. Respiratory: Airway is patent Respiratory effort is even, Respiratory pattern is tachypnea Breath sounds with wheezes. GI: Abdomen is round pain felt when palpating upper quadrant area Reports upper abdominal pain. : No signs and/or symptoms were reported regarding the genitourinary system. EENT: No signs and/or symptoms were reported regarding the EENT system. Derm: Skin is intact, Skin temperature is warm. Musculoskeletal: Capillary refill < 3 seconds, Range of motion: intact in all extremities. 05:00 Reassessment: Patient appears in no apparent distress at this time. Patient and/or rr5 family updated on plan of care and expected duration. Pain level reassessed. reassess the patient. 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 06:00 Reassessment: Patient appears in no apparent distress at this time. Patient and/or rr5 family updated on plan of care and expected duration. Pain level reassessed. awaiting for reports. no complaints made. Patient states feeling better. 07:00 Reassessment: Patient appears in no apparent distress at this time. Patient and/or rr5 family updated on plan of care and expected duration. Pain level reassessed. admitted waiting for room assignment Patient states feeling better. Patient states symptoms have improved. 07:57 Reassessment: Patient appears in no apparent distress at this time. Patient and/or ph family updated on plan of care and expected duration. Pain level reassessed. Patient is alert, oriented x 3, equal unlabored respirations, skin warm/dry/pink. Pt resting quietly, awaiting room assignment, VSS, SO at bedside. 10:15 Reassessment: Patient and/or family updated on plan of care and expected duration. Pain aj1 level reassessed. General: Appears in no apparent distress. comfortable, Behavior is calm, cooperative, appropriate for age. Neuro: Level of Consciousness is awake, alert, obeys commands, Oriented to person, place, time. Cardiovascular: Patient's skin is warm and dry. Respiratory: Airway is patent Respiratory effort is even, unlabored, Respiratory pattern is regular, symmetrical. GI: Abdomen is round non-distended. Derm: Skin is pink, warm \\T\\ dry. normal. Musculoskeletal: Circulation, motion, and sensation intact. 11:25 Reassessment: Patient appears in no apparent distress at this time. No changes from aj1 previously documented assessment. Patient and/or family updated on plan of care and expected duration. Pain level reassessed. Patient is alert, oriented x 3, equal unlabored respirations, skin warm/dry/pink. 12:20 Reassessment: Patient appears in no apparent distress at this time. No changes from aj1 previously documented assessment. Patient and/or family updated on plan of care and expected duration. Pain level reassessed. Patient is alert, oriented x 3, equal unlabored respirations, skin warm/dry/pink. Vital Signs: 04:22 BP 96 / 67; Pulse 68; Resp 22 S; Temp 97.4(O); Pulse Ox 95% on R/A; Weight 90.72 kg jd3 (R); Height 6 ft. 0 in. (182.88 cm) (R); Pain 10/10; 05:00 BP 118 / 62; Pulse 64; Resp 24; Pulse Ox 97% 3 lpm ; rr5 06:00 BP 119 / 73; Pulse 62; Resp 21; Pulse Ox 96% on 3 lpm NC; rr5 07:00 BP 112 / 60; Pulse 64; Resp 22; Pulse Ox 96% on 3 lpm NC; rr5 07:58 BP 106 / 65; Pulse 74; Resp 22; Pulse Ox 100% on 3 lpm NC; ph 09:00 BP 111 / 64; Pulse 67; Resp 20; Pulse Ox 98% on 3 lpm NC; ph 11:25 BP 105 / 62; Pulse 75; Resp 20; Pulse Ox 95% on 2 lpm NC; aj1 12:28 BP 107 / 75; Pulse 78; Resp 20; Pulse Ox 97% on 2 lpm NC; aj1 04:22 Body Mass Index 27.12 (90.72 kg, 182.88 cm) jd3 ED Course: 04:04 Patient arrived in ED. ag3 04:08 Surya Mims MD is Attending Physician. natacha 04:19 Triage completed. jd3 04:20 surveillance system monitor on. Pulse ox on. NIBP on. rr5 04:23 Dominick Rodriguez, RN is Primary Nurse. rr5 04:23 Arm band placed on. jd3 04:24 Patient has correct armband on for positive identification. Placed in gown. Bed in low jd3 position. Call light in reach. Side rails up X2. Adult w/ patient. 04:31 X-ray completed. Portable x-ray completed in exam room. Patient tolerated procedure kw well. 04:32 XRAY Chest (1 view) In Process Unspecified. EDMS 05:04 CT Chest Abdomen Pelvis W/O Contrast In Process Unspecified. EDMS 05:15 Inserted saline lock: 20 gauge in right forearm, using aseptic technique. Blood rr5 collected. 05:51 Georgette Carrasco MD is Hospitalizing Provider. natacha 10:59 Basic Metabolic Panel Sent. ag 11:00 CBC with Diff Sent. ag 11:00 Blood Culture Adult (2) Sent. ag 11:00 Urine Culture Sent. ag 12:19 Report given to OZZY Cortes on 2nd floor. aj1 12:19 No provider procedures requiring assistance completed. Patient admitted, IV remains in aj1 place. Administered Medications: Discontinued: NS 0.9% 1000 ml IV at 125 ml/hr continuous 05:15 Drug: NS 0.9% 1000 ml Route: IV; Rate: 125 ml/hr; Site: right forearm; rr5 07:15 Follow up: Response: No adverse reaction; IV Status: Order to discontinue infusion rr5 05:15 Drug: Zofran 4 mg Route: IVP; Site: right forearm; rr5 07:20 Follow up: Response: No adverse reaction rr5 05:17 Drug: morphine 2 mg Route: IVP; Site: right forearm; rr5 07:20 Follow up: Response: No adverse reaction rr5 05:49 CANCELLED (Duplicate Order): Lasix 20 mg IVP once natacha 06:30 Drug: Lasix 40 mg Route: IVP; Site: right forearm; rr5 07:19 Follow up: Response: No adverse reaction rr5 06:30 Drug: Aspirin 81 mg Route: PO; rr5 07:20 Follow up: Response: No adverse reaction rr5 07:00 Drug: Zosyn 3.375 grams Route: IVPB; Infused Over: 60 mins; Site: right forearm; rr5 Outcome: 05:54 Decision to Hospitalize by Provider. [facility] 12:43 Admitted to Tele accompanied by tech, via wheelchair, with chart. aj1 12:43 Condition: stable 12:43 Discharge instructions given to patient, Instructed on the need for admit, Demonstrated understanding of instructions. 12:47 Patient left the ED. aj1 Signatures: Dispatcher [employer] EDEllie Garcia RN RN aj1 Surya Mims MD MD cha Whitley, Kimberlee kw Gallardo, Mary Mason ph D, RN RNavies, Jonathon, RN RN Ioana Oviedo Raymond, OZZY RN rr5 Corrections: (The following items were deleted from the chart) 12:28 11:25 BP 105 / 62; Pulse 75bpm; Resp 20bpm; Pulse Ox 95% RA; aj1 aj1
[2018-07-06 06:15] LABS: Urine Blood NEGATIVE (NEG); Urine Glucose NEGATIVE (NEG); Urine Protein NEGATIVE (NEG); Urine Specific Gravity 1.025 (1.005-1.030); Urine pH 5.5 (5.0-7.0)
--- NOTE | 2018-07-06 06:24 | EKG ---
Test Date: 2018-07-06 Test Time: 04:29:07 Military Police Officer: SOCORRO MEASUREMENT RESULTS: Intervals: Rate: 62 MN: 192 QRSD: 186 QT: 574 QTc: 582 [place]: P: 49 MN: 192 QRS: 107 T: 61 INTERPRETIVE STATEMENTS: Sinus rhythm with occasional premature atrial complexes Right bundle branch block Inferior infarct, age undetermined Anterior infarct, age undetermined Abnormal ECG Compared to ECG 07/01/2018 17:09:53 Atrial premature complex(es) now present First degree AV block no longer present Myocardial infarct finding still present Electronically Signed On 07-06-18 06:24:16 COMPETITIVE INTELLIGENCE ANALYST by Walker Hopson
[2018-07-06] MEDS ORDERED: ASPIRIN 81 MG CHEWABLE TABLET ONE (06:55)
[2018-07-06] MEDS ORDERED: FUROSEMIDE 40 MG/4 ML VIAL ONE (06:55)
[2018-07-06] MEDS ORDERED: PIPER/TAZO/NS 3.375gm 3.375 GM/100 ML BAG ONE (06:56)
--- NOTE | 2018-07-06 09:52 | RAD REPORT ---
EXAM DESCRIPTION: CT - Chest Abd Pelvis Wo Con - 07/06/2018 5:04 am CLINICAL HISTORY: Chest and abdominal pain COMPARISON: July 01, 2018 CT chest TECHNIQUE: Computed axial tomography of the chest, abdomen and pelvis was obtained. Oral contrast wa s given. IV contrast was not requested. Parahilar peribronchial thickening present. All CT scans are performed using dose optimization technique as appropriate and may include automated exposure control or mA/KV adjustment according to patient size. FINDINGS: The evaluation of mediastinum, hector, vessels and solid organs is limited secondary to the lack of IV contrast administration No mediastinal or hilar lymphadenopathy is seen. Cardiomegaly Small to moderate pleural effusions. A pericardial effusion is not seen. Right lower lobe consolidation unchanged. Mild worsening in left upper lobe consolidation. The liver, spleen, pancreas, adrenals and kidneys do not demonstrate a significant abnormality. Small renal cysts. There is no evidence of diverticulitis. Small bilateral inguinal hernias contain fat Colon has been resected. Prostate gland moderately enlarged IMPRESSION: Bilateral upper lobe consolidations probably represent pneumonia Small to moderate bilateral pleural effusions
--- NOTE | 2018-07-06 09:53 | RAD REPORT ---
EXAM DESCRIPTION: Fran Single View07/06/2018 4:32 am CLINICAL HISTORY: Cough COMPARISON: July 01, 2018 FINDINGS: Bilateral upper lobe consolidations are present. The heart is moderately to markedly enlarged. Postsurgical changes involve the chest. Pacemaker lead is in place IMPRESSION: Bilateral upper lobe consolidation likely represents pneumonia
[2018-07-06] MEDS ORDERED: ONDANSETRON 4 MG/2 ML VIAL IV PRN (12:20)
[2018-07-06] MEDS ORDERED: ACETAMINOPHEN 500 MG TAB PO PRN (12:20)
[2018-07-06] MEDS ORDERED: IPRATROPIUM BROM 0.5MG/2.5ML NEB PRN (12:20)
[2018-07-06] MEDS ORDERED: ALBUTEROL 2.5 MG/3 ML NEB SOL NEB PRN (12:20)
[2018-07-06] MEDS ORDERED: VANCOMYCIN/NS 1 gm 1 GM/250 ML BAG IVPB SCH (15:00)
--- NOTE | 2018-07-06 15:05 | P.HP ---
Certification for Inpatient Patient admitted to: Inpatient With expected LOS: >2 Midnights Practitioner: I am a practitioner with admitting privileges, knowledge of patient current condition, hospital course, and medical plan of care. Services: Services provided to patient in accordance with Admission requirements found in Title 42 Section 412.3 of the Code of Federal Regulations Patient History Date of Service: 07/06/18 Reason for admission: Shortness of breath, abdominal pain History of Present Illness: Patient is a 70-year-old male with past medical history of congestive heart failure hypertension diabetes who was recently discharged from the hospital on 07/03/2018 secondary to pneumonia on oral antibiotics comes back to the hospital with shortness of breath and abdominal pain. Patient states that he has been coughing significantly and has pain in his abdomen on the right lower side and feels that his hernia repair has been affected. Patient reports some shortness of breath. Patient's symptoms are constant moderate progressively worsening. Patient's workup revealed bilateral upper lobe consolidation on imaging studies. White blood cell count was normal. BNP was slightly elevated as was the troponin. No chest pain. No signs of sepsis. CT did not show any abnormalities in the abdomen other than small inguinal hernias containing fat. Patient was referred for admission. When seen in the ER the patient was awake alert oriented x3 in some mild distress Allergies No Known Allergies Allergy (Verified 11/30/17 07:21) Home medications list reviewed: Yes Home Medications: Allopurinol [Zyloprim*] 1 tab PO DAILY 11/30/17 Aspirin [Aspir-Low] 1 tab PO DAILY 11/30/17 Atorvastatin Calcium 1 tab PO DAILY 11/30/17 Balsalazide Disodium 2 tab PO BID 11/30/17 Furosemide [Lasix] 1 tab PO BID 11/30/17 Glimepiride [Amaryl*] 2 mg PO BID 11/30/17 Lisinopril 2.5 mg PO DAILY 11/30/17 Sitagliptin Phosphate [Januvia*] 1 tab PO DAILY 11/30/17 Spironolactone [Aldactone*] 1 tab PO M,W,F 11/30/17 Amiodarone HCl [Cordarone*] 1 tab PO BID 07/01/18 Atorvastatin Calcium [Lipitor*] 1 tab PO BEDTIME 07/01/18 Dexlansoprazole [Dexilant] 60 mg PO DAILY 07/01/18 Nitroglycerin [Nitrostat*] 1 tab PO PRN 07/01/18 Prenat Vit Comb.10/Iron/FA/Dha [Vitafol-Ob+Dha Combo Pack] 1 tab PO DAILY levoFLOXacin [Levaquin*] 250 mg PO DAILY #14 tab 07/03/18 - Past Medical/Surgical History Diabetic: Yes -: Gout -: Atrial Fibrillation -: Heart Murmur -: Myocardial Infarction -: Hyperlipidemia -: Hypertension -: Chron's -: NIDDM -: CHF -: CABG Quintiple Bypass -: Cholecystectomy -: AICD -: Bowel Resection -: Heart Stents - Social History Smoking Status: Never smoker Alcohol use: No CD- Drugs: No Caffeine use: Yes Place of Residence: Home Review of Systems 10-point ROS is otherwise unremarkable Respiratory: As per HPI Gastrointestinal: As per HPI Physical Examination - Vital Signs Temperature: 97.1 F Blood Pressure: 107/75 Pulse: 78 Respirations: 20 Pulse Ox (%): 97 - Physical Exam General: Alert, Oriented x3, Mild distress, Other (Ill-appearing elderly male) HEENT: Atraumatic, PERRLA, Mucous membr. moist/pink, EOMI, Sclerae nonicteric Neck: Supple, 2+ carotid pulse no bruit, JVD not distended Respiratory: Diminished, Dull, Other (No stridor) Cardiovascular: Normal pulses, Regular rate/rhythm, Normal S1 S2, Edema Gastrointestinal: Normal bowel sounds, Soft and benign, Non-distended, Tenderness Musculoskeletal: No clubbing, No erythema, No tenderness Integumentary: No rashes, No erythema, No cyanosis Neurological: Normal gait, Normal speech, Normal strength at 5/5 x4 extr, Normal tone, Cranial nerves 3-12 intact, Normal affect - Studies Laboratory Data (last 24 hrs) 07/06/18 04:55: Lipase 295 07/06/18 04:55: PT 14.4 H, INR 1.22 07/06/18 04:55: WBC 6.7 D, Hgb 13.5 L, Hct 40.4, Plt Count 237 07/06/18 04:55: Sodium 139, Potassium 4.7, BUN 27 H, Creatinine 1.11, Glucose 194 H, Magnesium 2.3, Total Bilirubin 0.5, AST 47 H, ALT 67, Alkaline Phosphatase 82 Microbiology Data (last 24 hrs): 07/06/18 05:25 Nasopharnyx Influenza Type A Antigen Screen - Final 07/06/18 05:25 Nasopharnyx Influenza Type B Antigen Screen - Final Imagings Data: Chest x-ray shows bilateral upper lobe consolidation CT abdomen pelvisBilateral upper lobe consolidations probably represent pneumonia Small to moderate bilateral pleural effusions Assessment and Plan - Problems (Diagnosis) (1) PNA (pneumonia) Onset Date: 07/02/18 Current Visit: No Status: Acute Qualifiers: Pneumonia type: due to unspecified organism Laterality: bilateral Lung location: upper lobe of lung Qualified Code(s): J18.1 - Lobar pneumonia, unspecified organism (2) Abdominal pain Current Visit: Yes Status: Acute Qualifiers: Abdominal location: right lower quadrant Qualified Code(s): R10.31 - Right lower quadrant pain (3) CHF (congestive heart failure) Onset Date: 07/02/18 Current Visit: No Status: Acute Qualifiers: Heart failure type: systolic Heart failure chronicity: acute on chronic Qualified Code(s): I50.23 - Acute on chronic systolic (congestive) heart failure (4) S/P CABG x 5 Onset Date: 07/02/18 Current Visit: No Status: Acute (5) Diabetes Onset Date: 07/02/18 Current Visit: No Status: Chronic Qualifiers: Diabetes mellitus type: type 2 Diabetes mellitus [facility] insulin use: without termite technician use Diabetes mellitus complication status: with hyperglycemia Qualified Code(s): E11.65 - Type 2 diabetes mellitus with hyperglycemia (6) HTN (hypertension) Onset Date: 07/02/18 Current Visit: No Status: Chronic Qualifiers: Hypertension type: essential hypertension Qualified Code(s): I10 - Essential (primary) hypertension - Plan Admit patient to Med surg with telemetry Broad-spectrum IV antibiotics to HCAP IV Lasix Dc IV fluids 1500 mL fluid restriction and daily weights monitor I/Os closely Blood cultures and sputum culture Influenza screen negative Discharge Plan: Home Plan to discharge in: Greater than 2 days - Advance Directives Does patient have a Living Will: Yes Does patient have a Durable POA for Healthcare: Yes - Code Status/Comfort Care Code Status Assessed: Yes
[2018-07-06] MEDS ORDERED: GLUCAGON 1 MG/VIAL IM PRN (15:13)
[2018-07-06] MEDS ORDERED: D50W 25 GM/50 ML SYRINGE IV PRN (15:13)
[2018-07-06] MEDS ORDERED: CEPACOL LOZENGES PO PRN (15:16)
[2018-07-06] MEDS: INSULIN -REGULAR HUMAN 50 UNIT/0.5 ML ML SQ SCH ×2 (16:30→20:18)
[2018-07-06] MEDS: ENOXAPARIN 40 MG/0.4 ML SQ SCH (17:09)
[2018-07-06] MEDS: PIPER/TAZO/NS 3.375gm 3.375 GM/100 ML BAG IVPB SCH (17:10)
[2018-07-06] MEDS: FUROSEMIDE 20 MG/ 2ML VIAL IV SCH (17:10)
[2018-07-06] MEDS: VANCOMYCIN 1.5 GM in NA CHLORIDE 0.9% 500 ML IVPB SCH (17:10)
[2018-07-06 19:08] LABS: Urine Appearance CLEAR; Urine Bilirubin NEGATIVE (NEG); Urine Blood NEGATIVE (NEG); Urine Color YELLOW; Urine Glucose NEGATIVE (NEG); Urine Protein NEGATIVE (NEG); Urine Urobilinogen 0.2 mg/dL (0.2-1.0)
[2018-07-06 19:11] LABS: Urine Microscopic Reflex NO UMIC
[2018-07-06] MEDS: GUAIFENESIN/CODEINE 5ML UCUP PO PRN (20:18)
[2018-07-07] MEDS: PIPER/TAZO/NS 3.375gm 3.375 GM/100 ML BAG IVPB SCH ×3 (00:41→16:59)
[2018-07-07] MEDS: FUROSEMIDE 20 MG/ 2ML VIAL IV SCH (04:15)
[2018-07-07 05:51] LABS: Absolute Lymphocytes (CBC) 0.5 K/uL (0.7-4.9); Absolute Monocytes 0.5 K/uL (0.1-1.3); Absolute Neutrophil 4.4 K/uL (1.8-8.0); Basophils % 0.6 % (0-1.3); Eosinophils % 2.2 % (0-4.4); Hematocrit 37.5 % (39.6-49.0); Lymphocytes % 9.3 % (15.3-44.8); MPV 8.3 fL (7.6-11.3)
[2018-07-07 06:23] LABS: Albumin 2.6 g/dL (3.4-5.0); Bilirubin Total 0.5 mg/dL (0.2-1.0); Potassium 4.3 mmol/L (3.5-5.1); Protein, Total 5.9 g/dL (6.4-8.2)
[2018-07-07] MEDS: INSULIN -REGULAR HUMAN 50 UNIT/0.5 ML ML SQ SCH ×4 (07:30→21:27)
[2018-07-07] MEDS: ENOXAPARIN 40 MG/0.4 ML SQ SCH (09:00)
[2018-07-07] MEDS: VANCOMYCIN 1.5 GM in NA CHLORIDE 0.9% 500 ML IVPB SCH (09:06)
[2018-07-07] MEDS ORDERED: NITROGLYCERIN 0.4 MG/TAB SL PRN (10:00)
[2018-07-07] MEDS: FUROSEMIDE 20 MG TABLET PO SCH (12:04)
[2018-07-07] MEDS: GLIMEPIRIDE 2 MG TABLET PO SCH (16:58)
[2018-07-07] MEDS ORDERED: FUROSEMIDE 40 MG TABLET PO SCH (17:00)
--- NOTE | 2018-07-07 17:49 | PN ---
Date of Progress Note: 07/07/2018 History: The patient was seen and examined. Chart reviewed and case discussed with RN. The patient states his abdominal pain is significantly better. Breathing is also improving. Medications: List reviewed. Physical Examination: Vital Signs: Temperature 97.6, heart rate 69, blood pressure 114/61, respirations 16, O2 91% on room air. General: Awake, alert, oriented x3. Not in any acute distress. Elderly male. CV: S1, S2. Peripheral pulses present. Regular rate and rhythm. Respiratory: Somewhat diminished breath sounds at the bases. Otherwise, moving air well. No wheezi ng or stridor. Gastrointestinal: Abdomen is soft, nontender, nondistended. Positive bowel sounds. No guarding or rigidity. Extremities: No clubbing, cyanosis, or edema. No calf tenderness. Neuro: Cranial nerves 2-12 intact grossly. No focal neurological deficit. Speech is normal. Laboratory Data: WBC 5.5, H and H 12.7 and 37.5, platelets 210, neutrophils 78%. Sodium 140, potass ium 4.3, chloride 102, CO2 32, BUN 27, creatinine 1.33, glucose 172, calcium 8.9. Blood cultures neg ative to date. Influenza screen negative. Assessment And Plan: 1.Healthcare-associated pneumonia, bilateral upper lobes. Continue broad-spectrum IV antibiotics. Follow up on cultures, negative to date. 2.Right lower quadrant abdominal pain, co-related to possible hernia, improved. CT scan negative ex cept for small bilateral inguinal hernias containing fat. 3.Congestive heart failure, systolic dysfunction, acute on chronic. We will switch to p.o. Lasix. Initially was on IV. Creatinine has come up slightly. 4.Acute kidney injury, likely secondary to Lasix. We will hold off on IV dosing and reduce dose to p.o. 20 daily. Monitor creatinine level. 5.Coronary artery disease [place]omon artery and solomon heart without angina, status post coronary artery bypass graft. 6.Diabetes mellitus type 2 with long-term use of insulin with hyperglycemia. We will continue Accu- Cheks and sliding scale insulin. 7.Essential hypertension stable. Plan: Continue with daily weights. Follow up on cultures. Likely discharge in 24-48 hours dependin g on clinical response. Repeat chest x-ray in a.m. /ADRIEL Voice ID: [id number] Report ID: [id number]
[2018-07-07] MEDS: GUAIFENESIN/CODEINE 5ML UCUP PO PRN (19:18)
[2018-07-07] MEDS: AMIODARONE HCL 200 MG TAB PO SCH (20:09)
[2018-07-07] MEDS ORDERED: BALSALAZIDE DISODIUM PO SCH (21:00)
[2018-07-07] MEDS ORDERED: ATORVASTATIN 20 MG TAB PO SCH (21:00)
[2018-07-08] MEDS: PIPER/TAZO/NS 3.375gm 3.375 GM/100 ML BAG IVPB SCH ×2 (00:09→10:14)
[2018-07-08] MEDS: VANCOMYCIN 1.5 GM in NA CHLORIDE 0.9% 500 ML IVPB SCH (02:07)
[2018-07-08 05:49] LABS: Absolute Lymphocytes (CBC) 0.6 K/uL (0.7-4.9); Absolute Monocytes 0.5 K/uL (0.1-1.3); Absolute Neutrophil 5.4 K/uL (1.8-8.0); Basophils % 0.3 % (0-1.3); Eosinophils % 1.5 % (0-4.4); Hematocrit 40.2 % (39.6-49.0); Lymphocytes % 9.6 % (15.3-44.8); MPV 8.5 fL (7.6-11.3); Monocytes % 7.2 % (3.3-12.3); RBC Red Blood Cell Count 4.34 M/uL (4.33-5.43)
[2018-07-08 06:04] LABS: Albumin 2.8 g/dL (3.4-5.0); Bilirubin Total 0.5 mg/dL (0.2-1.0); Potassium 3.8 mmol/L (3.5-5.1); Protein, Total 6.2 g/dL (6.4-8.2)
[2018-07-08] MEDS ORDERED: PANTOPRAZOLE 40MG TABLET PO SCH (06:30)
[2018-07-08] MEDS ORDERED: POTASSIUM 25 MEQ EFFERV TAB PO ONE ×2 (06:44→07:30)
[2018-07-08] MEDS: INSULIN -REGULAR HUMAN 50 UNIT/0.5 ML ML SQ SCH ×2 (07:30→11:30)
--- NOTE | 2018-07-08 08:36 | RAD REPORT ---
EXAM DESCRIPTION: RAD - Chest Pa And Lat (2 Views) - 07/08/2018 6:33 am CLINICAL HISTORY: Pneumonia COMPARISON: July 06, July 01 portable chest exam; July 06 CT chest TECHNIQUE: PA and lateral views of the chest were obtained. FINDINGS: The lungs are normal volume. Interstitial and alveolar opacification are slightly improved since the -. Prominent vasculature noted. Defibrillator remains in place. CABG surgica l changes are noted. Enlarged cardiac silhouette remains. No pneumothorax is present. Pleural effusio ns have improved but not resolved since July 06. IMPRESSION: Minimal improvement in the lung parenchymal opacification since the July 06 study. Cardiomegaly and vascular engorgement remain. Pleural effusions have improved slightly.
[2018-07-08] MEDS ORDERED: LISINOPRIL 5 MG TAB PO SCH (09:00)
[2018-07-08] MEDS ORDERED: SITAGLIPTIN PHOS 100 MG TAB PO SCH (09:00)
[2018-07-08] MEDS ORDERED: ALLOPURINOL 300 MG TAB PO SCH (09:00)
[2018-07-08] MEDS: FUROSEMIDE 20 MG TABLET PO SCH (09:00)
[2018-07-08] MEDS ORDERED: ASPIRIN EC 81 MG TAB PO SCH (09:00)
[2018-07-08] MEDS: AMIODARONE HCL 200 MG TAB PO SCH (09:58)
[2018-07-08] MEDS: ENOXAPARIN 40 MG/0.4 ML SQ SCH (09:59)
[2018-07-08] MEDS: GLIMEPIRIDE 2 MG TABLET PO SCH (09:59)
[2018-07-08 10:49] VITALS: BP 105/57; TEMP 97.5
[2018-07-08 10:56] VITALS: O2SAT 93
[2018-07-08 12:09] VITALS: BMI 25.6
--- NOTE | 2018-07-09 12:04 | DS ---
Date of Discharge: 07/08/2018 Admitting Diagnoses: 1.Healthcare-associated pneumonia, bilateral upper lobes. 2.Abdominal pain, right lower quadrant. 3.[id number] systolic congestive heart failure. 4.Coronary artery disease, [place] artery and [place] heart, status post coronary artery bypass graft x5. 5.Diabetes mellitus type 2 without long-term use of insulin with hyperglycemia. 6.Essential hypertension. Discharge Diagnoses: 1.Healthcare-associated pneumonia, bilateral upper lobes. Cultures negative. 2.Right lower quadrant abdominal pain, resolved. 3.[id number] systolic heart failure, resolved. 4.Acute kidney injury, improved. 5.Coronary artery disease, [place] artery and [place] heart, without angina, status post coronary isi ry bypass graft. 6.Diabetes mellitus type 2 without long-term use of insulin with hyperglycemia. 7.Essential hypertension. Hospital Course: The patient is a 78-year-old male, who was recently discharged on 07/03/2018 with p neumonia. The patient returns to the ER with shortness of breath and abdominal pain. The patient al so reporting some pain in his abdomen due to the severe cough. CT scan was done, did not show any ab normalities in the abdomen, other than small inguinal hernias, however, did show bilateral upper lobe consolidations, representing pneumonia. The patient was started on broad-spectrum IV antibiotics. Cultures were obtained, which remained negative. His influenza screen was also negative. The patien t responded well to antibiotics, and he was also diuresed with Lasix. He did have mild elevation in his creatinine, which corrected. He also had a small elevation in his troponin, 0.05, likely due to demand mismatch. He did not have any chest pain or changes on his EKG. The patient overall did well . His repeat chest x-ray showed improvement in the effusions. He was afebrile and nonseptic appeari ng. His abdominal pain resolved. He was not coughing as much. He was able to ambulate without diff iculty. The patient was then discharged back to home in a stable condition. Activity: Fall precautions. Diet: Diabetic diet with 1500 mL fluid restriction. Followup: Follow up with PCP in 2 to 3 days. Return to ER for worsening condition. Medications: As per medication reconciliation list. Physical Examination: General: Awake, alert, oriented, no acute distress. An elderly male. CV: S1 and S2. Peripheral pulses present. Respiratory: Moving air well bilaterally. No wheezing. Gastrointestinal: Abdomen is soft, nontender, nondistended. Positive bowel sounds. Extremities: No clubbing, cyanosis, or edema. Neurologic: Nonfocal. Total time spent discharging the patient was 35 minutes. /ADRIEL Voice ID: [id number] Report ID: [id number]
[2018-07-10] MEDS ORDERED: SPIRONOLACTONE 25 MG TABLET PO SCH (09:00)
== END 2018-07-08 15:02 | disposition home or self-care (01) | DRG 193 ==
LOC: ER 03:59 → ERHOLD 07:25 → 2ND 12:19 → OBSVTOIN 07-07 13:20
PROVIDERS: ADMIT Internal Medicine; ATTEND Family Medicine
DX: J18.9 Pneumonia, unspecified organism (principal); I50.23 Acute on chronic systolic (congestive) heart failure; N17.9 Acute kidney failure, unspecified; I48.91 Unspecified atrial fibrillation; K40.90 Unilateral inguinal hernia, without obstruction or gangrene, not specified as recurrent; E78.5 Hyperlipidemia, unspecified; I10 Essential (primary) hypertension; I50.9 Heart failure, unspecified; R10.31 Right lower quadrant pain; E11.65 Type 2 diabetes mellitus with hyperglycemia; I25.10 Atherosclerotic heart disease of native coronary artery without angina pectoris; M10.9 Gout, unspecified; Z95.1 Presence of aortocoronary bypass graft; Z79.4 Long term (current) use of insulin
CPT/HCPCS: 36415; 71045; 71046; 71250; 74176; 80048; 80053; 80076; 81003; 82962; 83690; 83735; 83880; 84484; 85025; 85610; 87040; 87086; 87088; 87804; 93005; 94760; 96361; 96374; 96375; 99285; G0378; J1650; J1940; J2405; J2543; J7030